=== PATIENT | male | born 1985 | race Caucasian/White ===

== ENCOUNTER 2020-08-17 15:10 | Outpatient (REF) | payer OTHER, SELFPAY | END 2020-08-17 15:11 | disposition home or self-care (01) | LOC: HO.LAB 15:10 | PROVIDERS: Visit Provider Internal Medicine | DX: Z20.828 Contact with and (suspected) exposure to other viral communicable diseases (principal) | CPT/HCPCS: 87635 ==

== ENCOUNTER 2020-09-14 12:55 | Outpatient (REF) | payer OTHER, SELFPAY | END 2020-09-14 12:56 | disposition home or self-care (01) | LOC: HO.LAB 12:55 | PROVIDERS: Visit Provider Internal Medicine | DX: Z20.828 Contact with and (suspected) exposure to other viral communicable diseases (principal) | CPT/HCPCS: C9803; U0003 ==

== ENCOUNTER 2020-11-15 10:01 | Outpatient (REF) | payer OTHER, SELFPAY | END 2020-11-15 10:02 | disposition home or self-care (01) | LOC: HO.LAB 10:01 | PROVIDERS: Visit Provider Internal Medicine | DX: Z20.822 Contact with and (suspected) exposure to COVID-19 (principal) | CPT/HCPCS: 36415; C9803; U0003 ==

== ENCOUNTER 2020-12-27 15:26 | Outpatient (REF) | payer OTHER, SELFPAY | END 2020-12-27 15:27 | disposition home or self-care (01) | LOC: HO.LAB 15:26 | PROVIDERS: Visit Provider Internal Medicine | DX: Z20.822 Contact with and (suspected) exposure to COVID-19 (principal) | CPT/HCPCS: 36415; C9803; U0003; U0005 ==

== ENCOUNTER 2021-02-15 10:01 | Outpatient (REF) | payer OTHER, SELFPAY ==
[2021-02-15 10:58] LABS: COVID-19 Test Negative (Negative)
== END 2021-02-15 10:02 | disposition home or self-care (01) ==
LOC: HO.LAB 10:01
PROVIDERS: Visit Provider Internal Medicine
DX: Z20.822 Contact with and (suspected) exposure to COVID-19 (principal)
CPT/HCPCS: 36415; 87635; C9803

== ENCOUNTER 2021-02-16 11:36 | Outpatient (REF) | payer OTHER, SELFPAY ==
[2021-02-16 12:49] LABS: COVID-19 Test Negative (Negative); IDNOW Serial# 55D5AD1C
== END 2021-02-16 11:37 | disposition home or self-care (01) ==
LOC: HO.LAB 11:36
PROVIDERS: Visit Provider Internal Medicine
DX: Z20.822 Contact with and (suspected) exposure to COVID-19 (principal)
CPT/HCPCS: 36415; 87635; C9803

== ENCOUNTER 2021-02-18 09:24 | Outpatient (REF) | payer OTHER, SELFPAY ==
[2021-02-18 09:46] LABS: COVID-19 Test Negative (Negative)
== END 2021-02-18 09:25 | disposition home or self-care (01) ==
LOC: HO.LAB 09:24
PROVIDERS: Visit Provider Internal Medicine
DX: Z20.822 Contact with and (suspected) exposure to COVID-19 (principal)
CPT/HCPCS: 36415; 87635; C9803

== ENCOUNTER 2024-07-29 09:18 | Outpatient (AMB) | payer OTHER, SELFPAY ==
--- NOTE | 2024-07-29 10:51 | A.OFFVISCC_ITS ---
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 Sales Required: No Allergies No Known Allergies Allergy (Verified 07/30/24 09:46) Referred by: friend HPI HPI Intake: Details: Patient presents as walk in for evaluation and treatment of alcohol use He was referred by a friend Full substance use and treatment history obtained by RN and reviewed with patient He reports his goal is to get better control of his alcohol intake and be able to drink socially He has cut down a considerable amount over the last few weeks and is down to two drinks (previously 8 drinks) No history of treatment Patient is quite ill appearing--jaundice and distended abdomen which he reports began about a month ago He called his primary care provider and reported these things and was told to present to the ED. He came here instead to discuss his options. T/w acknowledged patient's significant reduction in alcohol intake and also voiced concern related to acute medical issues. Discussed patient's hesitation with being seen and he voiced anxiety about what to expect. Provided reassurance that he would be kep comfortable in regards to alcohol withdrawal and overall anxiety Advised patient that t/s would be able to see him when medically admitted and continue conversation regarding treatment for AUD while in the hospital. He stated he would like to go home and come back tomorrow. He declined lab work and stated he would prefer to have it tomorrow. PFSH Social History Alcohol intake: current Alcohol intake frequency: 3 or more drinks per day Alcohol type: beer and hard liquor Smoked in Last 30 Days: No Use of substances other than those prescribed or required for medical reasons: No Advance Directives: No Advance Directives Information Provided: Yes Do you have a plan to hurt others: No Plan Review of Systems Const Reports difficulty sleeping, Reports malaise and Reports poor appetite Physical Exam Vital Signs: Last Vital Signs Pulse 109 H 07/29/24 11:00 Resp 18 07/29/24 11:00 BP 138/68 07/29/24 11:00 Pulse Ox 94 07/29/24 11:00 Oxygen Delivery Method Room Air 07/29/24 11:00 Const Other: skin and sclera jaundice abdomen visibly distented guarded related to physcial exam General: cooperative, anxious, ill appearing and poor hygiene Nutritional Appearance: thin Assessment & Plan Assessment & Plan (1) Alcohol use disorder, severe, dependence: Code(s): F10.20 - Alcohol dependence, uncomplicated Category: Medical Plan: * patient to return to ED tomorrow * encouraged to come in sooner if he changes his mind * will follow up in AM if he has not presented MAT Intake Nursing Intake Reason for visit: Pt presents for ANTIONE intake Are you currently using?: Yes What are you taking?: alcohol When was your last use?: yesterday (07/28/24) How much?: 2 drinks (Navdeep and Coke with approx 2 shots each) What is your source of 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 Had been drinking 6-9 mixed drinks (2 shots each drink) but has reduced to 2 drinks daily) Age of first use: alcohol-22, cocaine-approx 29 Social History Domestic Violence concerns: none Children: none Do you have a support system?: Dad, friends, motorcycle club Current mode of transportation?: owns and drives own vehicle Where are you currently residing?: house in [place] with Dad IV Drug Use Have you ever shared needles?: No (no history of IV substance use) Number of lifetime overdoses: 0 Recovery History Have you had any periods of recovery?: Yes What is your longest time in recovery?: 1-2 weeks When was the last time you were in recovery?: a couple years ago Have you ever had inpatient treatment for your substance abuse disorder?: No Have you been in an inpatient detoxification program?: No Have you been in an inpatient Rehab/[place] house?: No Have you been in an outpatient Methadone Maintenance program?: No Have you been in an outpatient Suboxone Maintenance program?: No Have you been in an AA/NA support program?: No Have you had a Recovery Support Aerospace Physiological Technician?: No Have you had Peer Support?: No Behavioral Health History Do you have a current provider? If so, who?: no BH diagnosis: none History of other addictive behavior: denies History of inpatient psychiatric hospitalization? If so, how many? Most Recent? Where?: none History of self harming thoughts?: No History of homicidal or suicidal intentions?: No Medical Conditions Endocarditis?: No Skin Infection: No Seizure related to withdrawal or overdose: No Head or brain injury: No Hepatitis A (if yes, have you been treated?): No Hepatitis B (if yes, have you been treated?): No Hepatitis C (if yes, have you been treated?): No HIV (if yes, have you been treated?): No TB (if yes, have you been treated?): No Other: Yes (HTN (on amlodipine), Guillan-Trevorton syndrome 2 years ago, acid reflux, hx gout) Do you have any chronic pain conditions?: no Details: Left ankle surgery December 2022 after breaking it in 3 places Currently jaundice, reports first noticing approx 1 month ago. Also reports abdominal distention. Legal History History of incarceration: No Currently on parole or probation: No Court mandated programs: No Pending court cases: No DCF involvement: No
[2024-07-29 11:00] VITALS: BP 138/68; PULSE 109; RESP 18; O2SAT 94
== END 2024-07-29 10:38 | disposition home or self-care (01) ==
PROVIDERS: Visit Provider Nurse Practitioner Psychiatric/Mental Health
DX: F10.20 Alcohol dependence, uncomplicated (principal)
CPT/HCPCS: 99204

== ENCOUNTER → 2024-07-29 09:18 | Outpatient (BNVA) | payer OTHER, SELFPAY | PROVIDERS: Visit Provider Nurse Practitioner Psychiatric/Mental Health ==

== ENCOUNTER 2024-07-30 09:40 | Inpatient (IN) | payer OTHER, SELFPAY ==
[2024-07-30] VITALS (29 sets, daily range): BP systolic 90–120; BP diastolic 41–61; PULSE 74–108; RESP 16–25; TEMP 36.4–37.1; O2SAT 90–97; BMI 29.5
--- NOTE | ~2024-07-30 | XR_ITS ---
EXAMINATION: XR CHEST CLINICAL INFORMATION: Hypoxia. COMPARISON: Most recent chest radiograph done earlier the same day. TECHNIQUE: Frontal view of the chest was obtained. FINDINGS: Endotracheal tube with its tip approximately 3.1 cm proximal to the larry. Small left-sided pleural effusion with bilateral airspace opacities, similar when compared to the prior examination. No new right-sided pleural effusion. No pneumothorax. Stable cardiomediastinal silhouette. XR/XR chest 1V IMPRESSION: 1. Endotracheal tube with its tip approximately 3.1 cm proximal to the larry. 2. Small left-sided pleural effusion with bilateral airspace opacities, similar when compared to the prior examination. Electronically signed by: Teodoro Clements MD 07/31/2024 09:27 PM EDT
--- NOTE | ~2024-07-30 | XR_ITS ---
EXAMINATION: XR CHEST CLINICAL INFORMATION: Ventilator patient COMPARISON: 08/03/2024 TECHNIQUE: Frontal view of the chest was obtained. FINDINGS: The endotracheal tube terminates 5.3 cm above the larry. Nasogastric tube courses into the stomach. Diffuse airspace opacities, improved on the left, although slightly worsened on the right. The appearance suggests alveolar edema. Cannot exclude superimposed pneumonia. Probable trace pleural effusions. XR/XR chest 1V IMPRESSION: 1. Endotracheal tube 5.3 cm above the larry. 2. Diffuse airspace opacities, improved on the left and slightly worsened on the right. The appearance suggests alveolar edema. Electronically signed by: Cameron Lewis MD 08/05/2024 10:59 AM EDT
--- NOTE | ~2024-07-30 | XR_ITS ---
EXAMINATION: XR CHEST CLINICAL INFORMATION: ETT placement COMPARISON: Multiple priors, most recent chest radiograph 08/06/2024 TECHNIQUE: AP view of the chest was obtained. FINDINGS: Endotracheal tube with tip approximately 5 cm above the larry. Enteric tube courses below the diaphragm and out of [id number]. Left IJ central venous catheter with tip overlying the cavoatrial junction, as before. Moderate left-sided pleural effusion, increased from prior. Bilateral patchy opacities again seen. No pneumothorax. The cardiomediastinal silhouette is within normal limits for technique and unchanged. No acute osseous abnormality. XR/XR chest 1V IMPRESSION: 1. Endotracheal tube with tip approximately 5 cm above the larry. 2. Moderate left-sided pleural effusion, increased from prior. 3. Bilateral patchy opacities again seen, which may represent multifocal pneumonia versus pulmonary edema. Electronically signed by: Brittany Gusman DO 08/08/2024 01:42 PM EDT
--- NOTE | ~2024-07-30 | US_ITS ---
EXAMINATION: US GUIDED PARACENTESIS CLINICAL INFORMATION: Small volume ascites for diagnostic paracentesis. Patient admitted to ICU with GI bleed, hepatitis, severe anemia, leukocytosis, pneumonia, and anasarca. COMPARISON: No prior. Correlation with CT abdomen and pelvis 07/30/2024. PROCEDURE DETAILS: Following the discussion of the risks, benefits and alternatives to the procedure, written informed consent was obtained from the patient. The patient was placed supine in the ICU bed with a mild left tilt. A preprocedure time-out was performed per [facility] protocol. The left lower quadrant was marked, using ultrasound guidance, prepped and draped using sterile fashion. Using an ultrasound to identify the largest pocket of fluid, the left lower quadrant which was localized for paracentesis. Skin and subcutaneous tissues were anesthetized with 7 mL of 1% lidocaine sterile solution. Subsequently, a 5-[place] trochar catheter (WizeHive) was advanced into the ascites and upon aspiration of fluid, trocar was removed, and catheter left in place. The catheter was connected to Vacutainer suction. 1100 mL of rome, serous clear fluid was drained via vacuum bottle. The patient tolerated the procedure well without complications. The catheter was removed, area cleansed, puncture site sealed with Dermabond, and a sterile dressing applied. Ascitic samples were sent to laboratory for analysis. Patient tolerated the procedure well with no immediate complication. FINDINGS: Small volume abdominopelvic ascites. US/US paracentesis abd w/image IMPRESSION: LLQ therapeutic and diagnostic paracentesis, yielding 1100 mL of rome-colored, non-sanguinous clear serous ascites. Electronically signed by: Michele Mujica MD 07/31/2024 11:12 AM EDT
--- NOTE | ~2024-07-30 | XR_ITS ---
EXAMINATION: XR CHEST CLINICAL INFORMATION: Worsening hypoxia COMPARISON: 08/05/2024 TECHNIQUE: AP portable view of the chest. FINDINGS: Endotracheal tube are terminates 5.8 cm above the larry. There is no gross pneumothorax. Esophagogastric tube terminates below the lower limits of the film, but at least into the left upper quadrant. Diffuse bilateral airspace opacities with some improvement on the right and possible worsening on the left, although comparison is limited due to differences in positioning. Small left pleural effusion with left basilar consolidation. XR/XR chest 1V IMPRESSION: Diffuse bilateral airspace opacities with some improvement on the right and possible worsening on the left, although comparison is limited due to differences in positioning. Small left pleural effusion with left basilar consolidation. Electronically signed by: Aida Stoll MD 08/06/2024 08:51 AM EDT
--- NOTE | ~2024-07-30 | XR_ITS ---
EXAMINATION: XR CHEST CLINICAL INFORMATION: NG tube placement COMPARISON: None available. TECHNIQUE: Frontal view of the chest was obtained. 3 AP images were obtained at 1320 hours, 1323 hours, and 1327 hours. FINDINGS: Initial 2 radiographs demonstrates the NG tube coursing into the right mainstem bronchus and right lower lobe bronchus. The final image shows removal of the nasogastric tube. No pneumothorax. Endotracheal tube terminates 4.1 cm above the larry. Persistent pleural effusions and dense retrocardiac opacity. Patchy airspace opacities throughout the lungs is similar. XR/XR chest 1V IMPRESSION: Initial and post repositioning radiographs 2 the nasogastric tube in the right lower lobe bronchus. A subsequent image following removal of the nasogastric tube demonstrates no pneumothorax. Persistent pleural effusions, left lower lobe opacity, and patchy airspace disease, similar to previous. Electronically signed by: Cameron Lewis MD 08/02/2024 03:05 PM EDT
--- NOTE | ~2024-07-30 | XR_ITS ---
EXAMINATION: XR CHEST CLINICAL INFORMATION: ETT placement COMPARISON: Chest radiograph 07/30/2024 TECHNIQUE: AP view of the chest was obtained. FINDINGS: Endotracheal tube with tip approximately 4 cm above the larry. Lungs are hypoexpanded. Patchy bilateral airspace opacities, increased from prior. Small left pleural effusion. No pneumothorax. The top normal cardiomediastinal silhouette is unchanged. No acute osseous abnormality. XR/XR chest 1V IMPRESSION: 1. Endotracheal tube with tip approximately 4 cm above the larry. 2. Small left pleural effusion, stable. 3. Patchy bilateral airspace opacities, increased from prior, concerning for multifocal pneumonia versus edema in the appropriate clinical setting. Electronically signed by: Brittany Gusman DO 07/31/2024 02:08 PM EDT
--- NOTE | ~2024-07-30 | XR_ITS ---
EXAMINATION: XR CHEST CLINICAL INFORMATION: Shortness of breath COMPARISON: None available. TECHNIQUE: Frontal view of the chest was obtained. FINDINGS: Limited left hemidiaphragm. Left basilar infiltrate and effusion not excluded. Interstitial infiltrate observed in the right mid to lower lung. Heart size borderline with slight distention of the pulmonary vessels. Cardiac monitoring leads are present. XR/XR chest 1V IMPRESSION: Left pleural effusion. Mild infiltrates versus edema at the lung bases. Other comments as above. Electronically signed by: Juan Ramon Masters MD 07/30/2024 11:48 AM EDT
--- NOTE | ~2024-07-30 | XR_ITS ---
EXAMINATION: XR CHEST CLINICAL INFORMATION: CVC placement COMPARISON: Chest radiograph 08/06/2024 TECHNIQUE: Frontal view of the chest was obtained. FINDINGS: Left internal jugular catheter terminates at the level of the cavoatrial junction. An endotracheal tube terminates 5 cm superior to the larry. An enteric tube courses in projection of the stomach beyond the inferior margin of the field of view. Multifocal airspace opacities are present similar to findings present 08/06/2024 5:33 AM. Mild blunting of the left costophrenic sulcus and dense airspace opacification is present in the left lung base. No pneumothoraces. XR/XR chest 1V IMPRESSION: 1. Left internal jugular catheter terminating at the cavoatrial junction. 2. Endotracheal tube terminating 5 cm superior to the larry. 3. Enteric tube coursing within the stomach. 4. Unchanged multifocal airspace disease, small left pleural effusion and dense left base atelectasis and/or consolidation Electronically signed by: Aniceto Cooper MD 08/07/2024 07:08 AM EDT
--- NOTE | ~2024-07-30 | MR_ITS ---
EXAMINATION: MR BRAIN WITHOUT AND WITH CONTRAST CLINICAL INFORMATION: Persistent encephalopathy. COMPARISON: None available. TECHNIQUE: MRI of the brain was obtained using routine sequences without and following the administration of Gadavist intravenous contrast. FINDINGS: Moderately motion degraded exam. Punctate focus of restricted diffusion within the periventricular white matter of the posterior left temporal lobe. Associated T2 FLAIR hyperintensity. No focal restricted diffusion is demonstrated to suggest acute or subacute cerebral ischemia. Trace layering blood products within the occipital horns of the lateral ventricles. Partial failure of the normal CSF T2 FLAIR signal suppression along the bilateral cerebral hemispheres. Multifocal small foci/linear susceptibility artifact scattered throughout the subarachnoid spaces of the bilateral cerebral hemispheres and to lesser extent posterior fossa. Few nonspecific scattered periventricular, deep white matter, deep nuclei, and cerebellar T2 FLAIR hyperintensities. The ventricles are normal in morphology and size. Prominence of the CSF space posterior to the cerebellum. No abnormal mass effect. No midline shift. Normal appearance of the pituitary gland. Normal positioning of the cerebellar tonsils. Normal arterial and venous vascular flow voids are present. No abnormal contrast enhancement. The patient is intubated with orogastric tube in place. Normal, homogeneous marrow signal. Mild mucosal thickening of the paranasal sinuses. Prominent bilateral mastoid effusions. MR/MR head/brain wo/w con IMPRESSION: Punctate focus of restricted diffusion within the periventricular white matter of the posterior left temporal lobe suggestive of a tiny acute white matter insult. Trace intraventricular blood products. Multifocal small foci of susceptibility artifact scattered throughout the subarachnoid spaces. This appearance may be partially explained by scattered subarachnoid blood products although the scattered small foci/linear morphology is somewhat atypical. Recommend correlation with potential hypercoagulable state and/or causes of central embolic disease as these changes may be indicative of multifocal small arterial or venous occlusive disease. Mild nonspecific white matter changes. No abnormal intracranial enhancement. Prominent bilateral mastoid effusions. Electronically signed by: Balta Steele DO 08/11/2024 06:05 PM EDT
--- NOTE | ~2024-07-30 | CT_ITS ---
EXAMINATION: CT CHEST, ABDOMEN AND PELVIS WITH CONTRAST CLINICAL INFORMATION: Anemia, leukocytosis, anasarca. COMPARISON: None. TECHNIQUE: Contiguous axial thin section helical images of the chest, abdomen and pelvis were performed following the administration of 85 mL of intravenous Omnipaque 350. The data set was reformatted in the coronal and sagittal planes and reviewed on an independent workstation. This CT examination was performed using dose optimization techniques as appropriate, variously including the following: *Automated exposure control *Adjustment of mA and/or kV according to patient size (this includes techniques or standardized protocols for targeted exams where dose is matched to indication/reason for exam; i.e. extremities or head) *Use of iterative reconstruction technique Dose Length Product: 1072 mGycm. FINDINGS: LUNGS: Ill-defined patchy airspace opacities in the right upper lobe most likely inflammatory. There is partial collapse and consolidation of the left lower lobe with a small left pleural effusion and elevation of the left hemidiaphragm. MEDIASTINUM: Fluid-filled esophagus. No adenopathy. No pericardial effusion. No coronary artery calcifications. PLEURA: Small left pleural effusion. Trace right pleural effusion. AXILLA: No lymphadenopathy. LIVER, GALLBLADDER, BILIARY TREE: The liver is diffusely heterogeneous, measuring 23 cm in length. No discrete lesion. No ductal dilatation. PANCREAS: Normal SPLEEN: Normal. There are prominent vessels at the medial aspect of the spleen, at the junction with the gastric fundus. There is a focus of increased density within the adjacent posterior stomach which may have been ingested, although could represent a dilated vessel/vascular malformation or possible arterial extravasation. ADRENAL GLANDS, KIDNEYS, URETERS, AND BLADDER: No hydronephrosis. Nephrograms are symmetric. No suspicious lesions BOWEL LOOPS: No obstruction. No focal wall thickening or inflammatory process LYMPH NODES/RETROPERITONEUM: No retroperitoneal, mesenteric, or pelvic adenopathy. Moderate ascites and free pelvic fluid. Small fat-containing right inguinal hernia. OSSEOUS STRUCTURES: No suspicious lesions ADDITIONAL FINDINGS: Anasarca. Periumbilical subcutaneous edema. CT/CT abdomen pelvis w IV con IMPRESSION: 1. Small left pleural effusion with partial collapse and consolidation of the left lower lobe. 2. Patchy airspace opacities in the right upper lobe are likely inflammatory. 3. Enlarged heterogeneously enhancing liver which may represent early cirrhosis or hepatitis. No discrete lesion. Prominent vessels at the junction of the spleen and gastric fundus may be due to portal hypertension. There is a rounded focus of increased density within the adjacent posterior stomach which may have been ingested, although could represent a dilated vessel/vascular malformation or possible arterial extravasation. 4. Moderate ascites. Anasarca. 5. Fluid-filled esophagus. Electronically signed by: Cameron Lewis MD 07/30/2024 01:54 PM EDT
--- NOTE | ~2024-07-30 | XR_ITS ---
EXAMINATION: XR CHEST CLINICAL INFORMATION: bronchoscopy COMPARISON: Multiple priors, most recent chest radiograph 08/08/2024 at 8:06 AM TECHNIQUE: AP view of the chest was obtained. FINDINGS: Endotracheal tube with tip approximately 5.5 cm above the larry. Enteric tube courses below diaphragm and out of [id number]. Left IJ central venous catheter tip overlying the cavoatrial junction, as before. The lungs are adequately expanded. Small left pleural effusion. Dense retrocardiac opacities with air bronchograms. Bilateral patchy opacities. No pneumothorax. The cardiomediastinal silhouette is within normal limits for technique and unchanged. No acute osseous abnormality. XR/XR chest 1V IMPRESSION: 1. Endotracheal tube with tip approximately 5.5 cm above the larry. 2. Study is improved from prior status post bronchoscopy. Dense retrocardiac opacities with air bronchograms favored to represent atelectasis, though consolidation is not excluded. 3. Bilateral patchy opacities and small left pleural effusion could represent edema versus multifocal pneumonia. Electronically signed by: Brittany Gusman DO 08/08/2024 01:45 PM EDT
--- NOTE | ~2024-07-30 | XR_ITS ---
EXAMINATION: XR CHEST CLINICAL INFORMATION: Status post OGT placement COMPARISON: Chest radiograph dated 08/02/2024 TECHNIQUE: Frontal view of the chest was obtained. FINDINGS: Endotracheal tube remains in place with tip projecting approximately 4.8 cm above the larry. Interval repositioning of the endogastric tube, previously with tip located in a right lower lobe bronchus, now with tip obscured by a radiopaque lead but otherwise located in the stomach. Interval worsening of diffuse confluent patchy airspace opacities. Increase in moderate left pleural effusion. Stable small right pleural effusion. No pneumothorax. The cardiac silhouette is partially obscured by the left pleural effusion, but otherwise appears unchanged. XR/XR chest 1V IMPRESSION: 1. Interval repositioning of the endogastric tube, previously with tip located in a right lower lobe bronchus, now in satisfactory position within the stomach. 2. Interval worsening of diffuse confluent patchy airspace opacities. 3. Increase in moderate left pleural effusion. Stable small right pleural effusion. Electronically signed by: Darcy Khan MD 08/03/2024 01:49 PM EDT
[2024-07-30 10:13] LABS: Basophils Absolute Auto 0.1 X10*3/uL (0.0-0.2); Basophils Percent Auto 0.5 % (0-2); Eosinophils Absolute Auto 0.5 X10*3/uL (0.0-0.4); Imm Gran Abs Auto 0.32 X10*3/uL (0.00-0.03); Imm Gran Pct Auto 1.4 % (0.0-0.4); Lymphocytes Absolute Auto 4.8 X10*3/uL (1.2-4.9); Lymphocytes Percent Auto 20.8 % (20-40); MANUAL DIFF FLAG SCAN; Mean Corpuscular HGB Conc 34.4 g/dl (31.0-36.0); Mean Corpuscular Hemoglobin 33.5 pg (27.0-33.0); Mean Corpuscular Volume 97.6 fL (80.0-98.0); Mean Platelet Volume 11.2 fL (9.4-12.4); Monocytes Absolute Auto 2.5 X10*3/uL (0.1-1.2); Monocytes Percent Auto 10.9 % (2-11); NRBC Pct Auto 0.4 /100WBC (0.0-0.2); Neutrophils Absolute Auto 14.8 x10*3/uL (2.0-8.3); Neutrophils Percent Auto 64.4 % (45-73); Platelet Count 198 X10*3/uL (160-400); Red Blood Count 1.67 X10*6/uL (4.60-5.80); Red Cell Distribution Width 16.8 % (11.0-16.0); SCAN SMEAR FLAG 1
[2024-07-30 10:17] LABS: Hematocrit 16.3 % (42.0-52.0); Hemoglobin 5.6 g/dl (14.0-18.0)
[2024-07-30 10:26] LABS: Alanine Aminotransferase 19 U/L (0-40); Albumin Level 1.8 g/dL (3.5-5.0); Alkaline Phosphatase 268 U/L (39-117); Anion Gap 15 (12-20); Aspartate Amino Transferase 101 U/L (5-37); Bilirubin Direct 8.4 mg/dL (0.0-0.5); Bilirubin Total 11.1 mg/dL (0.0-1.0); Blood Urea Nitrogen 25 mg/dL (9-16); Calcium 7.9 mg/dL (8.4-10.2); Carbon Dioxide 20 mmol/L (22-29); Chloride 100 mmol/L (96-108); Creatinine Clr Calc Pharmacy 144.2; Estimated Glomerular Filt Rate > 60; Ethanol 35 mg/dL; Glucose Random 149 mg/dL (60-115); Lipase 56 U/L (8-78); Potassium 3.7 mmol/L (3.3-5.1); Sodium 131 mmol/L (135-145)
--- NOTE | 2024-07-30 10:29 | ECG_ITS ---
Test Reason : WEAKNESS Blood Pressure : / mmHG Vent. Rate : 103 BPM Atrial Rate : 103 BPM P-R Int : 144 ms QRS Dur : 118 ms QT Int : 376 ms P-R-T Axes : 041 013 033 degrees QTc Int : 492 ms Sinus tachycardia with Premature supraventricular complexes Non-specific intra-ventricular conduction delay Abnormal ECG No previous ECGs available Referred By: Harika Brown Electronically Signed By:NINA PRADHAN
--- NOTE | 2024-07-30 10:34 | ED_ITS ---
HPI - General Adult General Chief complaint: Abdominal Pain Stated complaint: bloating-yellow eyes Time Seen by Provider: 07/30/24 10:03 Source: patient Mode of arrival: ambulatory Limitations: no limitations History of Present Illness ED Provider: Huang Brown PA-C HPI narrative: 39 yo M with a past medical history significant for hypertension, GERD, anxiety, alcohol and substance use, Guillain[place] resolved from 2 years ago presents to the ED c/o jaundice and bloating for 2 months. Patient reports that the yellowing of his skin and eyes as well as abdominal bloating has become significantly worsened over the past 2 months which resulted in him presenting to the ED today. He has also noticed the formation of ?red dots on his chest and abdomen x1 month. Patient reports he recently has been trying to cut back on his alcohol use over the past 2-3 weeks previously he was drinking 6-8 drinks per day in his reporting that he currently drinks 2 drinks per day of ze and Coke. Patient unable to report amount of alcohol in each drink. Patient reports his last drink was yesterday night. Patient admits feeling anxious currently as his anxiety increases in the presence of medical settings. Denies history of withdrawal, withdrawal seizures. Endorses mild SOB, decreased appetite, tremors, nausea and 2 episodes of melena over the past week. Last BM 1 hour ago, formed and dark brown. Denies hematemesis, coffee ground emesis, fever, chills, headache, vision changes, tinnitus, CP, palpitations, vomiting, diarrhea, constipation, urinary symptoms, seizures. MD complaint: abdominal bloating, jaundice Onset (ago): month(s) Location: abdomen Radiation: distal Severity: severe Quality: aching Pain Consistency: intermittent Relieving factors: none Exacerbating factors: none Associated symptoms: loss of appetite Treatments prior to arrival: none Related Data Allergies Allergy/AdvReac Type Severity Reaction Status Date / Time No Known Allergies Allergy Verified 07/30/24 09:46 Review of Systems 2 Review of Systems: Yes all other systems are reviewed and are negative [facility] [place] Social History Social History Alcohol intake: current Alcohol intake frequency: 3 or more drinks per day Alcohol type: beer and hard liquor Patient Tobacco Use Status: Never used Tobacco Smoked in Last 30 Days: No Use of substances other than those prescribed or required for medical reasons: No Advance Directives: No Advance Directives Information Provided: Yes Do you have a plan to hurt others: No Plan Nutrition Risks: No Nutritional Risk Physical Exam ED Vital Signs: Vital Signs - 24 hr 07/30/24 09:46 07/30/24 10:09 07/30/24 12:26 Temperature 97.7 F 97.9 F 98.1 F Pulse Rate 74 104 H 106 H Respiratory Rate 16 22 H 20 Blood Pressure 114/49 L 120/54 L Pulse Oximetry 97 96 93 Oxygen Delivery Method Room Air Room Air Nasal Cannula Oxygen Flow Rate 2 07/30/24 12:27 07/30/24 12:47 07/30/24 13:46 Temperature 98.1 F 97.6 F 98.2 F Pulse Rate 108 H 106 H 107 H Respiratory Rate 22 H 25 H 21 H Blood Pressure 114/57 L 114/54 L 91/52 L Pulse Oximetry 92 Oxygen Delivery Method Nasal Cannula Oxygen Flow Rate 2 07/30/24 13:54 07/30/24 14:43 07/30/24 14:55 Temperature 98.0 F 98.7 F Pulse Rate 106 H 107 H Respiratory Rate 19 19 Blood Pressure 98/59 L 108/54 L 117/52 L Pulse Oximetry 92 Oxygen Delivery Method Nasal Cannula Oxygen Flow Rate 2 07/30/24 15:14 Temperature 98.7 F Pulse Rate 105 H Respiratory Rate 19 Blood Pressure 103/50 L Pulse Oximetry Oxygen Delivery Method Oxygen Flow Rate BMI result Body Mass Index 29.5 Appearance: Alert. Oriented X3. Patient appears jaundiced with tremors, lying on stretcher appears uncomfortable. Cooperative. Head: normocephalic, atraumatic. Eyes: Pupils equal, round and reactive to light. ENT: Fasciculations noted to tongue. Pharynx normal. No tonsillar swelling or exudate. Neck: Normal inspection. Neck supple. CVS: Mildly tachycardic heart rate and normal rhythm. Pulses normal. Respiratory: No respiratory distress. Breath sounds normal. Abdomen: Nontender but firm and distended. Hepatomegaly. No splenomegaly noted on palpation. Anasarca with pitting edema to the middle abdomen. JEREMI: normal external inspection, no hemorrhoids, scant amount of dark red blood in the rectal vault Skin: Skin warm and dry. Jaundiced skin color. Normal skin turgor. Petechial rash noted to anterior chest and upper abdomen. Extremities: Severe lower extremity 4+ pitting edema to the entire leg. No joint swelling. Neuro/psych: Oriented X 3. Neurovascularly intact. CN II-XII grossly intact. Normal speech and cognition. Resting tremor of the bilateral upper extremities. No asterixis. Medications Administered Generic Name Dose Route Start Last Admin Trade Name Freq PRN Reason Stop Dose Admin Octreotide Acetate 500 mcg/ 501 mls @ 50.1 mls/hr 07/30/24 13:00 07/30/24 13:44 Sodium Chloride IVCONT 50 mcg/hr .Q10H LUKAS 50.1 mls/hr Administration 50 MCG/HR Albumin Human 100 mls @ 133.333 mls/hr 07/30/24 15:15 07/30/24 15:42 Kedbumin 25 % IV 07/30/24 16:59 133.33 mls/hr Q1H LUKAS Administration Phenobarbital Sodium 226 mg 07/30/24 14:00 07/30/24 15:36 Phenobarbital Sodium 130 Mg/Ml Vial Im Q3hx2 IM 07/30/24 17:01 226 mg Q3H LUKAS Administration Protocol Discontinued Medications Generic Name Dose Route Start Last Admin Trade Name Earlq PRN Reason Stop Dose Admin Furosemide 20 mg 07/30/24 15:05 07/30/24 15:38 Furosemide 20 Mg/2 Ml Vial IVPUSH 07/30/24 15:06 20 mg ONCE ONE Administration Protocol Sodium Chloride 100 mls @ 100 mls/hr 07/30/24 10:28 07/30/24 14:43 Ns IV 07/30/24 11:27 Infused ONCE ONE Infusion Ceftriaxone Sodium 1 gm/ 50 mls @ 100 mls/hr 07/30/24 10:41 07/30/24 13:45 Sodium Chloride IV 07/30/24 11:10 Infused ONCE ONE Infusion Albumin Human 100 mls @ 100 mls/hr 07/30/24 14:00 07/30/24 15:14 Kedbumin 25 % IV 07/30/24 15:59 Not Given Q1H LUKAS Azithromycin 500 mg/ Sodium 250 mls @ 125 mls/hr 07/30/24 14:01 07/30/24 14:51 Chloride IV 07/30/24 16:00 125 mls/hr ONCE ONE Administration Iohexol 100 ml 07/30/24 12:04 07/30/24 12:04 Iohexol 350 Mg/Ml 100 Ml Infus..Btl IV 07/30/24 12:05 85 ml ONCE ONE Administration Lorazepam 2 mg 07/30/24 10:26 07/30/24 10:47 Lorazepam 2 Mg/Ml Vial IVPUSH 07/30/24 10:27 2 mg ONCE ONE Administration Pantoprazole Sodium 40 mg 07/30/24 10:27 07/30/24 10:47 Pantoprazole Sodium 40 Mg/10 Ml Vial IVPUSH 07/30/24 10:28 40 mg ONCE ONE Administration Phenobarbital Sodium 300 mg 07/30/24 11:00 07/30/24 11:07 Phenobarbital Sodium 130 Mg/Ml Im Once IM 07/30/24 11:01 300 mg ONCE ONE Administration Protocol Phytonadione 10 mg 07/30/24 10:53 07/30/24 11:06 Phytonadione (Vit K1) Oral 10 Mg/Ml Ampul PO 07/30/24 10:54 10 mg ONCE ONE Administration Medical Decision Making Medical Decision Making [facility] Narrative: 39 yo M with a past medical history significant for hypertension, GERD, anxiety, alcohol and substance use, Guillain[place] resolved from 2 years ago presents to the ED c/o jaundice and bloating for 2 months. On arrival, patient appears jaundiced with resting tremors to the bilateral upper extremities, lying on stretcher appears uncomfortable. On exam, patient is jaundiced skin color with visual tremors, mildly tachycardic at 104 bpm and tachypneic at 22 breaths per minute. Fasciculations are noted to his tongue. Pupils are equal and reactive to light, scleral icterus noted bilaterally. Abdomen is firm, distended, nontender, anasarca with pitting edema and hepatomegaly. Spider angiomas noted to upper anterior chest and upper abdomen. Severe lower extremity 4+ pitting edema to the entire leg to the dependent abdominal wall. No asterixis. Concern for alcoholic hepatitis, cirrhosis, DIC, GI bleed, chronic liver disease, ETOH withdrawal, sepsis, retroperitoneal bleed, hemolytic anemia, unlikely hepatic encephalopathy as he is awake, alert, oriented, and not lethargic. 10:40 - Plan: Labs, CT, x-ray, blood transfusion, empiric antibiotics (rocephin) ordered for now Labs concerning with severe anemia, H/H 5.6/6.3 and leukocytosis 23K. platelets normal. renal function normal. mild hyponatremia likely related to volume overload/anasarca. albumin 1.8. No obvious source of infection at this time. LFTs elevated likely due to alcoholic hepatitis. he has no RUQ abd pain, N/V or fevers. Empiric rocephin ordered x1. Consented for blood. 2 units PRBC ordered. JEREMI with dark red heme positive stool. IV Protonix ordered along with octreotide gtt for concern of UGIB, however less likely esophageal varices given no hematemsis. CT scans of his C/A/P ordered - CXR reviewed and he has left pleural effusion so CT chest added CIWA 7 - IV ativan ordered for severe anxiety and started on phenobarbital protocol for withdrawal. holding off on IVF resuscitation given his physical exam findings. may consider albumin if needed. getting blood for now. may need lasix between units. he is now requiring O2 for SpO2 87% while laying flat. 13:45 Discriminant function 70. unable to safely order prednisolone at this time with concern for possible infection. Dr. Turcios consulted, in the OR now, awaiting call back. still waiting for CT scan results. patient comfortable after meds. no active bleeding. No vomiting and no BMs since arrival to the ER. MAP >65, HR remains 100s. sleeping comfortably. no distress. 14:30 - spoke w/ Dr. Turcios re: CT scans. will need EGD once more stable. recommending blood and supportive care for now. monitor for s/sxs active bleeding. recommending dx paracentesis which has been ordered via IR w/ ascitic fluid studies. CT chest w/ possible PNA so azithromycin added for CAP coverage. Does not meet septic shock criteria, does not have a lactic acid over 4, not hypotensive. lawrence ordered for accurate I/Os. will plan to admit to the hospital for further management. 15:25 - patient high risk for decompensation. will admit to ICU, accepted by Dr. Montaño. Differential Diagnosis Differential Diagnoses: The differential diagnosis associated with the presentation includes Alcoholic hepatitis, cirrhosis, DIC, GI bleed, chronic liver disease, ETOH withdrawal, sepsis, retroperitoneal bleed, hemolytic anemia, SBP Admission/Observation Consideration of admission/observation: Escalation of care including admission/observation considered Consult Healthcare Provider Management of the patient was discussed with: Hospitalist and Warping Machine Operator Dr. Sabra Navarro Lab Data [facility] Lab Attestation statement: I reviewed the patient's lab results. Severe normocytic anemia, leukocytosis, normal platelets, coagulopathy with INR 2.2, hyponatremia likely hypervolemic 07/30/24 09:59 07/30/24 09:59 Labs: Lab Results 07/30/24 07/30/24 07/30/24 Range/Units 09:59 10:19 10:46 WBC 23.0 H (4.8-10.8) X10*3/uL RBC 1.67 L (4.60-5.80) X10*6/uL Hgb 5.6 L* (14.0-18.0) g/dl Hct 16.3 L* (42.0-52.0) % MCV 97.6 (80.0-98.0) fL MCH 33.5 H (27.0-33.0) pg MCHC 34.4 (31.0-36.0) g/dl RDW 16.8 H (11.0-16.0) % Plt Count 198 (160-400) X10*3/uL MPV 11.2 (9.4-12.4) fL Immature Gran % (Auto) 1.4 H (0.0-0.4) % Neut % (Auto) 64.4 (45-73) % Lymph % (Auto) 20.8 (20-40) % Hood % (Auto) 10.9 (2-11) % Eos % (Auto) 2.0 (0-4) % Baso % (Auto) 0.5 (0-2) % Lymph # (Auto) 4.8 (1.2-4.9) X10*3/uL Hood # (Auto) 2.5 H (0.1-1.2) X10*3/uL Eos # (Auto) 0.5 H (0.0-0.4) X10*3/uL Baso # (Auto) 0.1 (0.0-0.2) X10*3/uL Abs Immat Gran (auto) 0.32 H (0.00-0.03) X10*3/uL Absolute Neuts (auto) 14.8 H (2.0-8.3) x10*3/uL Absolute Nucleated RBC 0.100 H (0.0-0.012) X10*3/uL Nucleated RBC % (auto) 0.4 H (0.0-0.2) /100WBC Smear Tech's Comments VERIFIED Absolute Retic 0.123 H (0.026-0.095) X10*6/uL Percent Retic 7.4 H (0.5-1.8) % Immature Retic Fraction 28.9 H (2.3-13.4) % Retic Hgb Equivalent 25.2 L (30.0-35.0) pg PT 25.8 H (10.9-12.4) SEC INR 2.2 H (0.9-1.1) APTT 38.8 H (26.0-36.8) SEC Sodium 131 L (135-145) mmol/L Potassium 3.7 (3.3-5.1) mmol/L Chloride 100 (96-108) mmol/L Carbon Dioxide 20 L (22-29) mmol/L Anion Gap 15 (12-20) BUN 25 H (9-16) mg/dL Creatinine 0.82 (0.5-1.4) mg/dL Estim Creat Clear Calc 144.2 Estimated GFR > 60 Random Glucose 149 H (60-115) mg/dL Lactic Acid 3.9 H* (0.5-2.0) mmol/L Lactic Acid F/U @ 2Hr (0.5-2.0) mmol/L Calcium 7.9 L (8.4-10.2) mg/dL Iron 13 L (45-160) mcg/dL TIBC 173 L (228-428) mcg/dL % Saturation 8 L (15-50) % Unsat Iron Binding 160 ug/dL Total Bilirubin 11.1 H (0.0-1.0) mg/dL Direct Bilirubin 8.4 H (0.0-0.5) mg/dL AST 101 H (5-37) U/L ALT 19 (0-40) U/L Alkaline Phosphatase 268 H (39-117) U/L Lactate Dehydrogenase 230 (118-273) U/L Total Protein 6.0 L (6.5-8.0) g/dL Albumin 1.8 L (3.5-5.0) g/dL Lipase 56 (8-78) U/L Stool Occult Blood (NEGATIVE) Ethyl Alcohol 35 mg/dL Hepatitis A IgM Ab Nonreactive (Nonreactive) Hep Bs Antigen Negative (Negative) Hep Bs Antibody REACTIVE (Nonreactive) Hep B Core Total Ab Nonreactive (Nonreactive) Hepatitis C Ab (EIA) Nonreactive (Nonreactive) Influenza Type A (PCR) (Negative) Influenza Type B (PCR) (Negative) RSV RNA Qual (PCR) (Negative) SARS-CoV-2 RNA (RT-PCR) (Negative) Blood Type Antibody Screen Crossmatch 07/30/24 07/30/24 07/30/24 Range/Units 11:05 11:07 12:54 WBC (4.8-10.8) X10*3/uL RBC (4.60-5.80) X10*6/uL Hgb (14.0-18.0) g/dl Hct (42.0-52.0) % MCV (80.0-98.0) fL MCH (27.0-33.0) pg MCHC (31.0-36.0) g/dl RDW (11.0-16.0) % Plt Count (160-400) X10*3/uL MPV (9.4-12.4) fL Immature Gran % (Auto) (0.0-0.4) % Neut % (Auto) (45-73) % Lymph % (Auto) (20-40) % Hood % (Auto) (2-11) % Eos % (Auto) (0-4) % Baso % (Auto) (0-2) % Lymph # (Auto) (1.2-4.9) X10*3/uL Hood # (Auto) (0.1-1.2) X10*3/uL Eos # (Auto) (0.0-0.4) X10*3/uL Baso # (Auto) (0.0-0.2) X10*3/uL Abs Immat Gran (auto) (0.00-0.03) X10*3/uL Absolute Neuts (auto) (2.0-8.3) x10*3/uL Absolute Nucleated RBC (0.0-0.012) X10*3/uL Nucleated RBC % (auto) (0.0-0.2) /100WBC Smear Tech's Comments Absolute Retic (0.026-0.095) X10*6/uL Percent Retic (0.5-1.8) % Immature Retic Fraction (2.3-13.4) % Retic Hgb Equivalent (30.0-35.0) pg PT (10.9-12.4) SEC INR (0.9-1.1) APTT (26.0-36.8) SEC Sodium (135-145) mmol/L Potassium (3.3-5.1) mmol/L Chloride (96-108) mmol/L Carbon Dioxide (22-29) mmol/L Anion Gap (12-20) BUN (9-16) mg/dL Creatinine (0.5-1.4) mg/dL Estim Creat Clear Calc Estimated GFR Random Glucose (60-115) mg/dL Lactic Acid (0.5-2.0) mmol/L Lactic Acid F/U @ 2Hr (0.5-2.0) mmol/L Calcium (8.4-10.2) mg/dL Iron (45-160) mcg/dL TIBC (228-428) mcg/dL % Saturation (15-50) % Unsat Iron Binding ug/dL Total Bilirubin (0.0-1.0) mg/dL Direct Bilirubin (0.0-0.5) mg/dL AST (5-37) U/L ALT (0-40) U/L Alkaline Phosphatase (39-117) U/L Lactate Dehydrogenase (118-273) U/L Total Protein (6.5-8.0) g/dL Albumin (3.5-5.0) g/dL Lipase (8-78) U/L Stool Occult Blood POSITIVE (NEGATIVE) Ethyl Alcohol mg/dL Hepatitis A IgM Ab (Nonreactive) Hep Bs Antigen (Negative) Hep Bs Antibody (Nonreactive) Hep B Core Total Ab (Nonreactive) Hepatitis C Ab (EIA) (Nonreactive) Influenza Type A (PCR) NEGATIVE (Negative) Influenza Type B (PCR) NEGATIVE (Negative) RSV RNA Qual (PCR) NEGATIVE (Negative) SARS-CoV-2 RNA (RT-PCR) NEGATIVE (Negative) Blood Type A Positive Antibody Screen NEGATIVE Crossmatch See Detail 07/30/24 Range/Units 13:42 WBC (4.8-10.8) X10*3/uL RBC (4.60-5.80) X10*6/uL Hgb (14.0-18.0) g/dl Hct (42.0-52.0) % MCV (80.0-98.0) fL MCH (27.0-33.0) pg MCHC (31.0-36.0) g/dl RDW (11.0-16.0) % Plt Count (160-400) X10*3/uL MPV (9.4-12.4) fL Immature Gran % (Auto) (0.0-0.4) % Neut % (Auto) (45-73) % Lymph % (Auto) (20-40) % Hood % (Auto) (2-11) % Eos % (Auto) (0-4) % Baso % (Auto) (0-2) % Lymph # (Auto) (1.2-4.9) X10*3/uL Hood # (Auto) (0.1-1.2) X10*3/uL Eos # (Auto) (0.0-0.4) X10*3/uL Baso # (Auto) (0.0-0.2) X10*3/uL Abs Immat Gran (auto) (0.00-0.03) X10*3/uL Absolute Neuts (auto) (2.0-8.3) x10*3/uL Absolute Nucleated RBC (0.0-0.012) X10*3/uL Nucleated RBC % (auto) (0.0-0.2) /100WBC Smear Tech's Comments Absolute Retic (0.026-0.095) X10*6/uL Percent Retic (0.5-1.8) % Immature Retic Fraction (2.3-13.4) % Retic Hgb Equivalent (30.0-35.0) pg PT (10.9-12.4) SEC INR (0.9-1.1) APTT (26.0-36.8) SEC Sodium (135-145) mmol/L Potassium (3.3-5.1) mmol/L Chloride (96-108) mmol/L Carbon Dioxide (22-29) mmol/L Anion Gap (12-20) BUN (9-16) mg/dL Creatinine (0.5-1.4) mg/dL Estim Creat Clear Calc Estimated GFR Random Glucose (60-115) mg/dL Lactic Acid (0.5-2.0) mmol/L Lactic Acid F/U @ 2Hr 3.3 H* (0.5-2.0) mmol/L Calcium (8.4-10.2) mg/dL Iron (45-160) mcg/dL TIBC (228-428) mcg/dL % Saturation (15-50) % Unsat Iron Binding ug/dL Total Bilirubin (0.0-1.0) mg/dL Direct Bilirubin (0.0-0.5) mg/dL AST (5-37) U/L ALT (0-40) U/L Alkaline Phosphatase (39-117) U/L Lactate Dehydrogenase (118-273) U/L Total Protein (6.5-8.0) g/dL Albumin (3.5-5.0) g/dL Lipase (8-78) U/L Stool Occult Blood (NEGATIVE) Ethyl Alcohol mg/dL Hepatitis A IgM Ab (Nonreactive) Hep Bs Antigen (Negative) Hep Bs Antibody (Nonreactive) Hep B Core Total Ab (Nonreactive) Hepatitis C Ab (EIA) (Nonreactive) Influenza Type A (PCR) (Negative) Influenza Type B (PCR) (Negative) RSV RNA Qual (PCR) (Negative) SARS-CoV-2 RNA (RT-PCR) (Negative) Blood Type Antibody Screen Crossmatch Independent Interpretation I performed an independent interpretation of an: EKG, Plain X-Ray and CT Scan Interpretation: EKG with sinus tachycardia, ventricular rate 103 beats per minute, PVCs present, QTC 392, no ST segment elevations or depressions. Chest x-ray with left-sided pleural effusion CT of the abdomen with ascites, severe hepatomegaly, splenomegaly Radiology Impression Discussion of test interpretation with radiology: I have reviewed the radiologist's reading. Radiologist Impression: CT/CT abdomen pelvis w IV con IMPRESSION: 1. Small left pleural effusion with partial collapse and consolidation of the left lower lobe. 2. Patchy airspace opacities in the right upper lobe are likely inflammatory. 3. Enlarged heterogeneously enhancing liver which may represent early cirrhosis or hepatitis. No discrete lesion. Prominent vessels at the junction of the spleen and gastric fundus may be due to portal hypertension. There is a rounded focus of increased density within the adjacent posterior stomach which may have been ingested, although could represent a dilated vessel/vascular malformation or possible arterial extravasation. 4. Moderate ascites. Anasarca. 5. Fluid-filled esophagus. External Record Review External record reviewed: Prior outpatient labs Tests considered The following testing was considered but not selected: RUQ U/S considered to evaluate for PVT Prescription Management I considered prescription management with: Antibiotic Chronic Conditions Patient?s care impacted by: Other (Alcohol use disorder) Social Determinants Patient?s care significantly limited by Social Determinants of Health including: Problems related to primary support group and Other Social Determinant of Health Critical Care Time Critical Care Time Critical Care Time: Yes Total Critical Care Time: 72 Attestation: I have personally provided critical care time exclusive of time spent on separately billable procedures. Time includes review of lab data, radiology results, discussion with consultants, and monitoring for potential decompensation. Intervention performed as documented. Discharge Plan Discharge Clinical Impression: Acute blood loss anemia, Alcoholic hepatitis, Pleural effusion, Ascites, Alcohol withdrawal, Coagulopathy, Pneumonia, Acute GI bleeding Patient Disposition: Admitted As Inpatient
[2024-07-30 10:38] LABS: Immature Retic Fraction 28.9 % (2.3-13.4); Retic HGB Equivalent 25.2 pg (30.0-35.0); Reticulocytes Absolute 0.123 X10*6/uL (0.026-0.095); SLIDE REVIEW VERIFIED
[2024-07-30 10:39] LABS: Reticulocyte Percent 7.4 % (0.5-1.8)
[2024-07-30 10:46] LABS: Iron 13 mcg/dL (45-160); Percent Iron Saturation 8 % (15-50); Total Iron Binding Capacity 173 mcg/dL (228-428); Unsaturated Iron Binding 160 ug/dL
[2024-07-30 10:46] LABS: INTERNATIONAL NORM RATIO 2.2 (0.9-1.1); Prothrombin Time 25.8 SEC (10.9-12.4)
[2024-07-30] MEDS: LORazepam 2 MG/ML VIAL IVPUSH (10:47)
[2024-07-30] MEDS: Pantoprazole Sodium 40 MG/10 ML VIAL IVPUSH ×2 (10:47→16:49)
[2024-07-30 10:49] LABS: Partial Thromboplastin Time 38.8 SEC (26.0-36.8)
[2024-07-30 11:01] LABS: HBS Num1 423.22 mIU/mL (0-7.99); HBc Num1 0.08 S/CO (0.00-0.79); Hepatitis A Antibody IgM 0.16 Index (0-0.79); Hepatitis B Core Antibody Nonreactive (Nonreactive); Hepatitis B Surface Antigen Negative (Negative); ~HepC Num1 0.19 S/CO (0.00-0.79); ~Hepatitis A Antibody IgM Nonreactive (Nonreactive); ~Hepatitis B Surface Antibody REACTIVE (Nonreactive); ~Hepatitis C Antibody Nonreactive (Nonreactive)
[2024-07-30] MEDS: Phytonadione (Vit K1) Oral 10 MG/ML AMPUL PO (11:06)
[2024-07-30] MEDS: PHENobarbitaL sodium 130 MG/ML IM ONCE 300 MG IM (11:07)
[2024-07-30] MEDS: cefTRIAXone sodium 1 GM in 0.9 % Sodium Chloride 50 ML IV (11:09)
[2024-07-30 11:23] LABS: Lactic Acid 3.9 mmol/L (0.5-2.0)
[2024-07-30 11:40] LABS: Lactate Dehydrogenase 230 U/L (118-273)
[2024-07-30 12:02] LABS: Influenza A PCR NEGATIVE (Negative); Influenza B PCR NEGATIVE (Negative); Resp Syncy Virus RNA Qual PCR NEGATIVE (Negative); SARS COV2 PCR INHOUSE NEGATIVE (Negative)
[2024-07-30] MEDS: iohexoL 350 MG/ML 100 ML INFUS..BTL IV (12:04)
[2024-07-30 12:58] LABS: Reflex Lactate? Lactic Acid Added
[2024-07-30 13:08] LABS: OBS Int Ctl Valid YES; OBS1 POSITIVE (NEGATIVE)
[2024-07-30] MEDS: Octreotide Acetate 500 MCG in 0.9 % Sodium Chloride 500 ML 50.1 MCG IVCONT ×2 (13:44→23:39)
--- NOTE | 2024-07-30 13:54 | PC.NURSE ---
Late charting d/t pt care. Pt comes from home for jaundice skin, abdominal distention, ETOH withdrawal. Upon arrival pt tremulous, short of breath. Skin appears jaundiced with petechiae on upper chest. Pitting edema noted to bilteral lower extremities, pt states he has had this x2 months. A/ox4, speaking in full sentences, increased sob noted, lung sounds cta bilaterally, pt O2 sat dropped to high 80s on room air, placed on 2L NC and FRANCO Shabazz made aware, pt maintaining O2 sat 90-93% on 2L, pt tachycardic on security monitor, HR 110s-120s, abdomen distended, tender on palpation. Pt medicated per DEC, 20g IV placed in left ac and right forearm. Call gibbons within reach, all needs met at this time.
[2024-07-30 14:00] LABS: ~Lactic Acid-LAB USE ONLY 3.3 mmol/L (0.5-2.0)
[2024-07-30] MEDS: Albumin Human 25 % 100 ML 133.33 ML IV ×2 (14:41→15:42)
[2024-07-30] MEDS: Azithromycin 500 MG in 0.9 % Sodium Chloride 250 ML 125 MG IV (14:51)
[2024-07-30] MEDS: PHENobarbitaL sodium 130 MG/ML VIAL IM Q3Hx2 226 MG IM ×2 (15:36→18:03)
[2024-07-30] MEDS: Furosemide 20 MG/2 ML VIAL IVPUSH ×2 (15:38→22:37)
[2024-07-30 15:45] LABS: Reflex Lactate? 2 Y
--- NOTE | 2024-07-30 15:49 | PM.EVENT ---
Event Note Date of Service: 07/30/24 Event Note: GI consult dictated Alcoholic hepatitis severe anemia/ gi blood loss Rec: Transfuse, correct coagulopathy paracentesis, r/o sbp egd 07/31 hold off on steroids for alcoholic hepatitis. Time Spent With Patient Time: Total time managing care of this patient today ____ minutes.
--- NOTE | 2024-07-30 15:52 | MHC.SHP ---
Pre-Procedural Eval Section A - 24 Hr Update-Section A only Date of Service: 07/30/24 The patient is an INPATIENT: Yes Changes since office visit: No Cold of Flu in the past 2 weeks, No New Medical Problems, No Changes in Medication and No Patient answered all questions The patient has been examined within 24 hours of the surgical procedure. The History & Physical has been completed within 30 days and I have reviewed it.: Yes Section B - Complete if H&P > 30 days Chief Complaint: GIB Allergies: Allergies Allergy/AdvReac Type Severity Reaction Status Date / Time No Known Allergies Allergy Verified 07/30/24 09:46 Plan I have reviewed the history and physical and performed a pertinent physical examination on my patient. No changes have occurred unless specified. Time Spent With Patient Time: Total time managing care of this patient today ____ minutes.
--- NOTE | 2024-07-30 15:55 | PC.NURSE ---
First unit of RBC infused. Pt tolerated well, no adverse reactions.
--- NOTE | 2024-07-30 15:56 | PC.NURSE ---
Pt BP 91/52. FRANCO Shabazz made of aware of low BP. Pt medicated per DEC.
--- NOTE | 2024-07-30 15:58 | PC.NURSE ---
? Sepsis Spoke with FRANCO Shabazz, at this time she doesn't believe pt meets sepsis criteria. MD Navarro in agreement.
--- NOTE | 2024-07-30 16:00 | PC.NURSE ---
Per MD Montaño, second unit of blood in 2 hours. First unit infused, pt tolerated well. Call gibbons within reach, all needs met at this time.
--- NOTE | 2024-07-30 16:18 | PHA.MEDREC ---
Addendum entered by Duncan Nunez 07/30/24 16:55: Reviewed Original Note: Pharmacy Consult ? Medication Reconciliation Pharmacy has completed the medication reconciliation. Spoke to patient to confirm med list, however he was very sleepy. He just stated he has his medications on the table and feel back to sleep. Utilized list to confirm claims. Not sure when the last time patient took his medication because i couldn't wake him. All of patients bottles are completely filled and last fill days are from November and december for 90 day supply.
[2024-07-30] MEDS: Albumin Human 25 % 100 ML IV ×2 (16:47→21:42)
[2024-07-30] MEDS: Phytonadione (Vit K1) 10 MG in 0.9 % Sodium Chloride 50 ML 51 MG IV (17:44)
--- NOTE | 2024-07-30 19:04 | HO.SKINPHOTO ---
Location: left lower extremity Category: cellulitis Location: left lower extremity Category: cellulitis Location: right anterior lower leg Category: healed abrasions
--- NOTE | 2024-07-30 19:07 | PC.NURSE ---
Assumed care of patient 17:30 Pt alert to name, A+Ox3, vague to situation Pt vital signs stable with MAP goal >65. 1 unit RBCs received from blood bank and given Vitamin K 10mg IV started Pedal pulses positive by doppler. 4+ edema to BLE. Redness / cellulitis to left lower leg outlined in skin marker. smear BM with dark brown stool Pt given 3rd IM injection phenobarbital per protocol and orders RN to RN report given to next RN
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
[2024-07-30] MEDS: Thiamine HCL 100 MG in 0.9 % Sodium Chloride 100 ML 202 MG IV (20:53)
[2024-07-30 21:21] LABS: Mean Corpuscular Hemoglobin 33.2 pg (27.0-33.0); Mean Corpuscular Volume 94.7 fL (80.0-98.0); Mean Platelet Volume 10.8 fL (9.4-12.4); NRBC Pct Auto 0.3 /100WBC (0.0-0.2); Platelet Count 167 X10*3/uL (160-400); Red Cell Distribution Width 16.6 % (11.0-16.0); White Blood Count 21.2 X10*3/uL (4.8-10.8)
[2024-07-30 21:34] LABS: Hemoglobin 6.3 g/dl (14.0-18.0)
[2024-07-30 21:53] LABS: SLIDE REVIEW MANUAL DIFF
[2024-07-30 21:57] LABS: Basophils Abs Manual 0.2 X10*3/uL (0.0-0.2); Basophils Percent Manual 1 % (0-2); Eosinophils Absolute Manual 0.4 X10*3/uL (0.0-0.4); Eosinophils Percent Manual 2 % (0-4); Lymphocytes Percent Manual 19 % (20-40); Monocytes Absolute Manual 0.4 X10*3/uL (0.1-1.2); Monocytes Percent Manual 2 % (2-11); Neutrophils Percent Manual 76 % (45-73); Target Cells 1+ (5-14) /OIF
[2024-07-30 22:01] LABS: Platelet Estimate NORMAL (NORMAL); Platelet Morphology Comment NORMAL; RBC Morphology NOTED
[2024-07-30 22:02] LABS: Band Neutrophils Percent 0 % (3-5); Neutrophils Absolute Manual 16.1 X10*3/uL (2.0-8.3)
[2024-07-31] VITALS (49 sets, daily range): BP systolic 87–147; BP diastolic 45–78; PULSE 76–121; RESP 15–28; TEMP 31–37.4; O2SAT 89–96; BMI 29.1
--- NOTE | 2024-07-31 01:25 | CONS_ITS ---
DATE OF SERVICE: 07/30/2024 REFERRING PHYSICIAN: FRANCO Marquez REASON FOR CONSULTATION: GI bleeding and alcoholic hepatitis. HISTORY OF PRESENT ILLNESS: The patient is a 39-year-old man, who was admitted to the hospital after presenting to the emergency department today with complaints of 2 months of jaundice and bloating. He has also noticed lower extremity swelling. He reports intermittent black stools, but denies any hematemesis or coffee-grounds emesis. He states he drinks 2 drinks of hard liquor a day, down from 8 previously on a daily basis. He was evaluated in the emergency department, where laboratory work and imaging studies were obtained and are reviewed. Hematocrit on admission is low at 16.3 with no comparison baseline. White count is 23. Blood alcohol level was 35 and chemistries show bilirubin of 11.1 with transaminases elevated in a pattern consistent with alcohol. INR was elevated at 2.2. Imaging was obtained, which is reviewed. The liver was enlarged. There is a rounded focus of increased density within the posterior stomach, which may have been ingested, but could represent a dilated vessel/vascular malformation or possible arterial extravasation. Also noted was ascites and a fluid-filled esophagus. The patient is currently being treated with blood transfusion, albumin, phenobarbital, octreotide, and pantoprazole. He has also been given vitamin K. PAST MEDICAL HISTORY: 1. Alcohol abuse. 2. Hypertension. 3. Anxiety. 4. Gastroesophageal reflux disease. 5. Substance abuse. CURRENT MEDICATIONS: His current medication list is reviewed in the chart. ALLERGIES: THERE ARE NONE REPORTED. FAMILY HISTORY: This is reviewed in the electronic medical record. SOCIAL HISTORY: Alcohol abuse as above. REVIEW OF SYSTEMS: This is not reliably obtainable. PHYSICAL EXAMINATION: GENERAL: Shows a jaundiced male, who was somnolent. VITAL SIGNS: Reviewed in the electronic medical record and are stable. SKIN: Icteric. Multiple spider angiomatous. HEENT: Shows no scleral icterus. NECK: Without lymphadenopathy or thyromegaly. LUNGS: Clear. HEART: Shows a regular rate and rhythm. S1, S2. No murmur. ABDOMEN: Distended. Bowel sounds are present. There appears to be ascites and the liver edge is palpable approximately 12 cm below the right costal margin. EXTREMITIES: Show edema. LABORATORY DATA AND IMAGING STUDIES: Reviewed. IMPRESSION: 1. Alcoholic hepatitis. 2. Severe anemia with history of black stools. I discussed with the patient the need to avoid alcohol. He currently may be starting early withdrawal and I agree with treating him with phenobarbital. I would hold off on steroids at this time given his elevated white count. I have recommended paracentesis for further diagnosis and to rule out SBP. I have discussed endoscopy with him. His presentation does not appear consistent with active upper GI bleeding right at this time. Therefore, I would recommend transfusing him and correcting his coagulopathy prior to endoscopy. I have discussed endoscopy with him including risks and benefits of the procedure. He understands these and agrees to proceed. This will be arranged for tomorrow. Thanks for asking me to see him. I will follow him in the hospital with you. MD LORENA Franco/KAYLAH / [phone]
[2024-07-31] MEDS: Calcium Chloride 1 GM/10 ML SYRINGE 0.5 GM IVPUSH (02:35)
[2024-07-31] MEDS: Albumin Human 25 % 100 ML IV ×3 (03:32→20:29)
[2024-07-31 05:38] LABS: MANUAL DIFF FLAG NO
[2024-07-31 05:40] LABS: Basophils Absolute Auto 0.1 X10*3/uL (0.0-0.2); Basophils Percent Auto 0.7 % (0-2); Eosinophils Absolute Auto 0.7 X10*3/uL (0.0-0.4); Eosinophils Percent Auto 3.5 % (0-4); Hematocrit 21.2 % (42.0-52.0); Hemoglobin 7.4 g/dl (14.0-18.0); Imm Gran Abs Auto 0.14 X10*3/uL (0.00-0.03); Imm Gran Pct Auto 0.7 % (0.0-0.4); Lymphocytes Absolute Auto 3.8 X10*3/uL (1.2-4.9); Lymphocytes Percent Auto 19.2 % (20-40); Mean Corpuscular HGB Conc 34.9 g/dl (31.0-36.0); Mean Corpuscular Hemoglobin 31.9 pg (27.0-33.0); Mean Corpuscular Volume 91.4 fL (80.0-98.0); Mean Platelet Volume 10.8 fL (9.4-12.4); Monocytes Absolute Auto 1.5 X10*3/uL (0.1-1.2); Monocytes Percent Auto 7.6 % (2-11); NRBC Pct Auto 0.4 /100WBC (0.0-0.2); Neutrophils Absolute Auto 13.6 x10*3/uL (2.0-8.3); Neutrophils Percent Auto 68.3 % (45-73); Platelet Count 170 X10*3/uL (160-400); Red Blood Count 2.32 X10*6/uL (4.60-5.80); Red Cell Distribution Width 17.2 % (11.0-16.0); White Blood Count 19.9 X10*3/uL (4.8-10.8)
[2024-07-31 05:43] LABS: VBG Base Excess 1.6 mmol/L; VBG HCO3 21 mmol/L (22-26); VBG pCO2 21 mmHg; VBG pH 7.61 (7.32-7.43); VBG pO2 70 mmHg
[2024-07-31 05:45] LABS: INTERNATIONAL NORM RATIO 1.9 (0.9-1.1); Prothrombin Time 21.7 SEC (10.9-12.4)
[2024-07-31] MEDS: Pantoprazole Sodium 40 MG/10 ML VIAL IVPUSH ×2 (05:54→15:43)
[2024-07-31 05:55] LABS: Venous Blood Gas Refer to POC result
[2024-07-31 06:03] LABS: Alanine Aminotransferase 16 U/L (0-40); Albumin Level 2.8 g/dL (3.5-5.0); Alkaline Phosphatase 205 U/L (39-117); Anion Gap 14 (12-20); Aspartate Amino Transferase 89 U/L (5-37); Bilirubin Total 11.3 mg/dL (0.0-1.0); Blood Urea Nitrogen 27 mg/dL (9-16); Calcium 8.9 mg/dL (8.4-10.2); Carbon Dioxide 20 mmol/L (22-29); Chloride 102 mmol/L (96-108); Creatinine Clr Calc Pharmacy 141.7; Estimated Glomerular Filt Rate > 60; Glucose Random 109 mg/dL (60-115); Phosphorus 4.1 mg/dL (2.7-4.5); Potassium 3.4 mmol/L (3.3-5.1); Sodium 133 mmol/L (135-145); Total Protein 6.3 g/dL (6.5-8.0)
[2024-07-31] MEDS: Potassium Chloride/H20 10 MEQ/100 ML PIGGYBACK 100 MEQ IV ×4 (07:27→21:35)
[2024-07-31] MEDS: Thiamine HCL 100 MG in 0.9 % Sodium Chloride 100 ML 202 MG IV (08:25)
[2024-07-31] MEDS: Folic Acid 1 MG in 0.9 % Sodium Chloride 50 ML 100.4 MG IV (08:26)
--- NOTE | 2024-07-31 08:39 | PM.GIPN ---
Subjective Subjective Date of Service: 07/31/24 Interval History: more alert today no bleeding reported overnight Critical Care Time (minutes): 30 Physical Exam Vital Signs: Vital Signs: Last Vital Signs Temp 99.0 F 07/31/24 08:00 Pulse 104 H 07/31/24 08:00 Resp 28 H 07/31/24 08:00 BP 97/52 L 07/31/24 08:00 Pulse Ox 92 07/31/24 08:00 O2 Del Method Nasal Cannula 07/31/24 08:00 O2 Flow Rate 3 07/31/24 08:00 BMI result Body Mass Index 29.1 Const: Other: responsive GI: Other: abdomen is soft and nontender Extrem: Other: edema present Objective Data Labs 07/31/24 05:31 07/31/24 05:31 Procedures Date of Service Date of Service: 07/31/24 Progress Note: A&P Assessment and plan (1) Acute GI bleeding: Status: Acute Assessment and Plan: appropriate response to prbc transfusion no active bleeding documented continues on ppi and octreotide EGD today ffp x2 ordered, confirmed with blood bank and [employer]. lfts stable, no steroids at this time given possible underlying infection. Time Spent With Patient Time: Total time managing care of this patient today ____ minutes. Quality Stroke Does the patient have a stroke diagnosis?: No VTE Prior VTE?: No VTE Risk Level:: Medical - moderate - high VTE Device Contraindication: N/A - Device Ordered VTE Drug Contraindication: Treatment Not Indicated
[2024-07-31] MEDS: Octreotide Acetate 500 MCG in 0.9 % Sodium Chloride 500 ML 50.1 MCG IVCONT ×2 (09:40→21:35)
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
[2024-07-31] MEDS: Lidocaine HCl 1 % MPF 30 ML VIAL SUBCUT (10:49)
[2024-07-31] MEDS: propofoL 1,000 MG/100 ML VIAL 28.38 MG IVCONT ×4 (11:30→21:17)
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
[2024-07-31 11:51] LABS: MN% 93.7 %; PMN% 6.3 %; WBC Peritoneal Fluid 0.399 X10*3/uL
[2024-07-31 11:52] LABS: RBC Peritoneal Fluid < 0.002 X10*6/uL
--- NOTE | 2024-07-31 12:00 | PM.EVENT ---
Event Note Date of Service: 07/31/24 Event Note: GI EGD note dictated Grade 2 nonbleeding esophageal varices small distal esophageal ulcer portal hypertensive gastropathy erosive gastritis no bleeding no therapy performed REC: d/c octreotide continue ppi and supportive care monitor HCT advance diet as tolerated. Time Spent With Patient Time: Total time managing care of this patient today ____ minutes.
--- NOTE | 2024-07-31 12:03 | P.BOP_ITS ---
Brief Operative Note Date of Service: 07/31/24 Pre-op diagnosis: gi bleed Post-op diagnosis: same Procedure: EGD Surgeon: Robin Turcios MD Anesthesia: GETA Was an Mixing Machine Tender Cork Gasket used for this Procedure?: No Estimated blood loss (mL): 0 Pathology: none sent Condition: stable Disposition: ICU
[2024-07-31 12:34] LABS: Lymphocyte Peritoneal Fl 50 %; Monocytes Peritoneal Fl 7 %; Neutrophils Peritoneal Fluid 6 %; Other Peritioneal Fl 37 %
[2024-07-31 12:35] LABS: BF Shift QC OK YES
[2024-07-31] MEDS: Furosemide 40 MG/4 ML VIAL IVPUSH ×2 (12:53→20:27)
[2024-07-31] MEDS: cefTRIAXone sodium 1 GM in 0.9 % Sodium Chloride 50 ML IV (13:00)
--- NOTE | 2024-07-31 13:22 | OP_ITS ---
DATE OF SERVICE: 07/31/2024 SURGEON: Robin Turcios MD INDICATIONS: GI bleeding. PREOPERATIVE DIAGNOSIS: POSTOPERATIVE DIAGNOSIS: PROCEDURE PERFORMED: Upper endoscopy. ESTIMATED BLOOD LOSS: COMPLICATIONS: ANESTHESIA: General anesthesia. ASSISTANTS: SPECIMENS: DESCRIPTION OF PROCEDURE: A history and physical was performed. The risks and benefits of the procedure were explained to the patient and informed consent was obtained. The patient was placed in the left lateral decubitus position. The Olympus video gastroscope was introduced into the esophagus, stomach, and duodenum. Examination was performed and the scope was removed. He tolerated the procedure well and was returned to recovery area in stable condition. FINDINGS: Esophagus: The esophagus showed 4 chains of grade 2 varices extending from the EG junction at 42 cm to about 30 cm. There were no stigmata of recent hemorrhage. There was a small distal esophageal ulcer with a clean base. Stomach: The stomach showed no active bleeding. Portal hypertensive gastropathy was present with some superficial erosions in the antrum. No lesion was identified on the posterior wall to correspond to the CT description. No therapy was performed. Duodenum: The bulb and 2nd portion were normal. IMPRESSION: 1. Esophageal varices, nonbleeding. 2. Distal esophageal ulcer. 3. Erosive gastritis. 4. Portal hypertensive gastropathy. RECOMMENDATIONS: 1. Discontinue octreotide. 2. Follow hematocrit. 3. Continue IV proton pump inhibitor. 4. Advance diet as tolerated and continue supportive care. MD LORENA Franco/MODL / [id number] MTDD
[2024-07-31] MEDS: Midazolam HCl/PF 2 MG/2 ML VIAL 4 MG IVPUSH (13:39)
--- NOTE | 2024-07-31 14:06 | MHC.CM.PN ---
Met w/pt to discuss d/c planning: pt resides w/his father, is independent with all care needs, has no DME or services and doesn't ancitipate any needs following d/c. He states his PCP is Dr. Espinosa in [place]. Pt declined a HCP at this time. Pt may benefit from a CARE team consult for ETOH use. Anticipate home without services: family to transport.
[2024-07-31 19:33] LABS: Basophils Absolute Auto 0.1 X10*3/uL (0.0-0.2); Basophils Percent Auto 0.5 % (0-2); Eosinophils Absolute Auto 0.3 X10*3/uL (0.0-0.4); Eosinophils Percent Auto 1.6 % (0-4); Hemoglobin 7.5 g/dl (14.0-18.0); Imm Gran Abs Auto 0.12 X10*3/uL (0.00-0.03); Imm Gran Pct Auto 0.6 % (0.0-0.4); Lymphocytes Absolute Auto 2.2 X10*3/uL (1.2-4.9); Lymphocytes Percent Auto 10.4 % (20-40); MANUAL DIFF FLAG SCAN; Mean Corpuscular HGB Conc 35.9 g/dl (31.0-36.0); Mean Corpuscular Hemoglobin 32.5 pg (27.0-33.0); Mean Corpuscular Volume 90.5 fL (80.0-98.0); Mean Platelet Volume 10.9 fL (9.4-12.4); Monocytes Absolute Auto 1.5 X10*3/uL (0.1-1.2); Monocytes Percent Auto 7.3 % (2-11); NRBC Pct Auto 0.3 /100WBC (0.0-0.2); Neutrophils Absolute Auto 16.8 x10*3/uL (2.0-8.3); Neutrophils Percent Auto 79.6 % (45-73); Platelet Count 162 X10*3/uL (160-400); Red Blood Count 2.31 X10*6/uL (4.60-5.80); Red Cell Distribution Width 17.5 % (11.0-16.0); SCAN SMEAR FLAG 1; White Blood Count 21.1 X10*3/uL (4.8-10.8)
[2024-07-31 19:38] LABS: VBG Base Excess -0.6 mmol/L; VBG HCO3 21 mmol/L (22-26); VBG pCO2 27 mmHg; VBG pO2 78 mmHg
[2024-07-31 19:47] LABS: Hematocrit 20.9 % (42.0-52.0)
[2024-07-31 19:50] LABS: Albumin Level 2.7 g/dL (3.5-5.0); Anion Gap 14 (12-20); Blood Urea Nitrogen 30 mg/dL (9-16); Calcium 8.5 mg/dL (8.4-10.2); Carbon Dioxide 21 mmol/L (22-29); Chloride 103 mmol/L (96-108); Creatinine Clr Calc Pharmacy 116.4; Estimated Glomerular Filt Rate > 60; Glucose Random 121 mg/dL (60-115); Magnesium 1.9 mg/dL (1.6-2.6); Phosphorus 4.8 mg/dL (2.7-4.5); Potassium 3.6 mmol/L (3.3-5.1); Sodium 134 mmol/L (135-145)
[2024-07-31 20:10] LABS: SLIDE REVIEW VERIFIED
[2024-07-31] MEDS: Thiamine HCL 100 MG in 0.9 % Sodium Chloride 100 ML 200 MG IV (21:44)
[2024-07-31 22:15] LABS: Venous Blood Gas Refer to POC result
[2024-08-01] VITALS (47 sets, daily range): BP systolic 88–115; BP diastolic 41–64; PULSE 74–94; RESP 17–32; TEMP 34.5–36.8; O2SAT 89–95; BMI 30.5
[2024-08-01 00:07] LABS: Basophils Absolute Auto 0.1 X10*3/uL (0.0-0.2); Basophils Percent Auto 0.5 % (0-2); Eosinophils Absolute Auto 0.4 X10*3/uL (0.0-0.4); Eosinophils Percent Auto 2.2 % (0-4); Hemoglobin 7.3 g/dl (14.0-18.0); Imm Gran Pct Auto 0.5 % (0.0-0.4); Lymphocytes Absolute Auto 2.7 X10*3/uL (1.2-4.9); Lymphocytes Percent Auto 14.2 % (20-40); MANUAL DIFF FLAG SCAN; Mean Corpuscular HGB Conc 34.9 g/dl (31.0-36.0); Mean Corpuscular Hemoglobin 31.9 pg (27.0-33.0); Mean Corpuscular Volume 91.3 fL (80.0-98.0); Monocytes Absolute Auto 1.6 X10*3/uL (0.1-1.2); Monocytes Percent Auto 8.3 % (2-11); NRBC Pct Auto 0.2 /100WBC (0.0-0.2); Neutrophils Absolute Auto 14.3 x10*3/uL (2.0-8.3); Neutrophils Percent Auto 74.3 % (45-73); Platelet Count 149 X10*3/uL (160-400); Red Cell Distribution Width 17.8 % (11.0-16.0); SCAN SMEAR FLAG 1; White Blood Count 19.2 X10*3/uL (4.8-10.8)
[2024-08-01 00:09] LABS: Hematocrit 20.9 % (42.0-52.0); Red Blood Count 2.29 X10*6/uL (4.60-5.80)
[2024-08-01 00:18] LABS: Lactic Acid 0.9 mmol/L (0.5-2.0)
--- NOTE | 2024-08-01 00:18 | PM.EVENT ---
Documented by User: Zakiya Isaacs NP 08/01/24 00:19 Event Note Date of Service: 08/01/24 Event Note: Hypotension from sedation, lactic is negative. No evidence of severe sepsis Time Spent With Patient Time: Total time managing care of this patient today ____ minutes. Documented by User: Rosas Montaño MD 08/01/24 12:02 Event Note Date of Service: 08/01/24
[2024-08-01] MEDS: Norepinephrine Bitartrate/D5W 8 MG/250 ML PLAST..BAG 8.87 MG IVCONT ×2 (00:20→17:35)
[2024-08-01] MEDS: propofoL 1,000 MG/100 ML VIAL 22.7 MG IVCONT (00:32)
[2024-08-01] MEDS: Albumin Human 25 % 100 ML IV ×4 (02:35→19:45)
[2024-08-01] MEDS: propofoL 1,000 MG/100 ML VIAL 28.38 MG IVCONT ×6 (04:23→21:33)
[2024-08-01 04:59] LABS: VBG Base Excess -1.6 mmol/L; VBG HCO3 20 mmol/L (22-26); VBG pCO2 27 mmHg; VBG pH 7.48 (7.32-7.43); VBG pO2 62 mmHg
[2024-08-01 05:03] LABS: Basophils Absolute Auto 0.1 X10*3/uL (0.0-0.2); Basophils Percent Auto 0.5 % (0-2); Eosinophils Absolute Auto 0.4 X10*3/uL (0.0-0.4); Eosinophils Percent Auto 2.2 % (0-4); Hematocrit 23.9 % (42.0-52.0); Hemoglobin 8.4 g/dl (14.0-18.0); Imm Gran Abs Auto 0.12 X10*3/uL (0.00-0.03); Imm Gran Pct Auto 0.6 % (0.0-0.4); Lymphocytes Absolute Auto 2.7 X10*3/uL (1.2-4.9); Lymphocytes Percent Auto 13.7 % (20-40); MANUAL DIFF FLAG SCAN; Mean Corpuscular HGB Conc 35.1 g/dl (31.0-36.0); Mean Corpuscular Hemoglobin 32.1 pg (27.0-33.0); Mean Corpuscular Volume 91.2 fL (80.0-98.0); Mean Platelet Volume 11.1 fL (9.4-12.4); Monocytes Absolute Auto 1.6 X10*3/uL (0.1-1.2); NRBC Pct Auto 0.3 /100WBC (0.0-0.2); Neutrophils Absolute Auto 14.7 x10*3/uL (2.0-8.3); Platelet Count 173 X10*3/uL (160-400); Red Blood Count 2.62 X10*6/uL (4.60-5.80); Red Cell Distribution Width 17.1 % (11.0-16.0); SCAN SMEAR FLAG 1; White Blood Count 19.6 X10*3/uL (4.8-10.8)
[2024-08-01 05:10] LABS: Ammonia 187 umol/L (13-55)
[2024-08-01 05:11] LABS: Alanine Aminotransferase 16 U/L (0-40); Albumin Level 3.4 g/dL (3.5-5.0); Alkaline Phosphatase 178 U/L (39-117); Anion Gap 15 (12-20); Aspartate Amino Transferase 82 U/L (5-37); Blood Urea Nitrogen 33 mg/dL (9-16); Calcium 8.9 mg/dL (8.4-10.2); Carbon Dioxide 20 mmol/L (22-29); Chloride 102 mmol/L (96-108); Creatinine Clr Calc Pharmacy 98.4; Estimated Glomerular Filt Rate > 60; Glucose Random 127 mg/dL (60-115); Phosphorus 4.4 mg/dL (2.7-4.5); Potassium 3.4 mmol/L (3.3-5.1); Sodium 134 mmol/L (135-145); Total Protein 6.8 g/dL (6.5-8.0)
[2024-08-01 05:18] LABS: INTERNATIONAL NORM RATIO 1.7 (0.9-1.1); Prothrombin Time 19.3 SEC (10.9-12.4)
[2024-08-01] MEDS: Pantoprazole Sodium 40 MG/10 ML VIAL IVPUSH ×2 (05:23→15:58)
[2024-08-01 05:28] LABS: SLIDE REVIEW VERIFIED
[2024-08-01 05:55] LABS: Venous Blood Gas Refer to POC result
[2024-08-01] MEDS: Potassium Chloride/H20 10 MEQ/100 ML PIGGYBACK 100 MEQ IV ×4 (06:12→11:55)
[2024-08-01] MEDS: Octreotide Acetate 500 MCG in 0.9 % Sodium Chloride 500 ML 50.1 MCG IVCONT ×2 (06:14→15:59)
[2024-08-01 07:30] LABS: LDH Peritoneal Fluid 42
[2024-08-01 07:37] LABS: Albumin Peritoneal Fluid 0.4
--- NOTE | 2024-08-01 08:03 | P.POSTANES_ITS ---
Post Anesthesia Evaluation Post Anesthesia Evaluation Date of Service: 08/01/24 Vital Signs: Vital Signs Temp Pulse Resp BP Pulse Ox O2 Del Method FiO2 08/01/24 07:31 55 08/01/24 07:30 93 55 08/01/24 07:00 97.2 F 79 18 104/54 L 94 Mechanical Ventilation 55 08/01/24 06:00 97.2 F 82 20 106/55 L 93 Mechanical Ventilation 55 08/01/24 05:00 97.2 F 79 17 103/54 L 92 Mechanical Ventilation 55 08/01/24 04:53 55 08/01/24 04:23 84 20 107/56 L 93 08/01/24 04:23 84 20 107/56 L 93 08/01/24 04:00 97 F 84 20 113/60 93 Mechanical Ventilation 55 08/01/24 03:59 86 20 113/60 08/01/24 03:24 92 55 08/01/24 02:48 97.8 F 80 20 107/61 93 Mechanical Ventilation 55 08/01/24 02:00 97 F 77 18 103/59 L 95 Mechanical Ventilation 55 08/01/24 01:07 97.7 F 78 20 104/61 08/01/24 01:06 97.8 F 78 20 105/62 08/01/24 01:00 96.8 F 78 18 106/62 93 Mechanical Ventilation 55 08/01/24 00:51 97.6 F 76 18 101/59 L 08/01/24 00:43 97.7 F 76 18 98/57 L 08/01/24 00:41 76 98/57 L 08/01/24 00:32 75 18 98/59 L 92 08/01/24 00:32 75 18 98/59 L 92 08/01/24 00:20 74 88/45 L 08/01/24 00:16 55 07/31/24 23:59 98.0 F 76 18 88/45 L 94 Mechanical Ventilation 55 07/31/24 23:43 78 18 87/49 L 93 07/31/24 23:28 93 55 07/31/24 23:00 97.3 F 79 16 103/52 L 93 Mechanical Ventilation 65 07/31/24 21:54 97.6 F 83 19 106/56 L 90 L Mechanical Ventilation 65 07/31/24 21:17 84 18 104/55 L 91 L 07/31/24 21:17 84 18 104/55 L 91 L 07/31/24 20:51 97.9 F 85 16 106/57 L 92 Mechanical Ventilation 65 07/31/24 20:27 107/56 L Anesthesia: General Endotracheal-GETA Mental Status: Sedated Hydration: Adequate Anesthesia-Related Issues: No Anes. Related Issues Comments: Patient remains intubated and sedated in the ICU. Required levophed overnight due to hypotension. Care managed by primary ICU team. Anesthesia team to follow- up as necessary.
[2024-08-01] MEDS: Thiamine HCL 100 MG in 0.9 % Sodium Chloride 100 ML 202 MG IV ×2 (09:41→21:32)
[2024-08-01] MEDS: Folic Acid 1 MG in 0.9 % Sodium Chloride 50 ML 100.4 MG IV (09:42)
[2024-08-01] MEDS: cefTRIAXone sodium 1 GM in 0.9 % Sodium Chloride 50 ML IV (11:55)
--- NOTE | 2024-08-01 12:02 | P.PNCC_ITS ---
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 On ER evaluation patient in acute liver failure with elevated bilirubin, INR, transaminases, also acute blood loss anemia with initial hemoglobin of 5.6, started on IV fluid and blood product support, also phenobarbital protocol, IV PPI, IV octreotide, empiric ceftriaxone, and admitted to the intensive care unit. Status post EGD 07/31/2024 with no active bleeding noted, but underlying nonbleeding varices and esophageal ulcer, remained intubated at the end of the case and transferred back to the intensive care unit with high FiO2 support requirements. Overnight with diminishing urine output and requiring pressor support. Critical Care Time (minutes): 60 Physical Exam 2 Vital Signs: Vital Signs: Last Vital Signs Temp 97.7 F 08/01/24 11:00 Pulse 85 08/01/24 11:00 Resp 23 H 08/01/24 11:00 BP 107/59 L 08/01/24 11:00 Pulse Ox 91 L 08/01/24 11:00 O2 Del Method Mechanical Ventil ation 08/01/24 11:00 O2 Flow Rate 3 07/31/24 11:00 FiO2 55 08/01/24 11:33 BMI result Body Mass Index 30.5 Const: General: no acute distress and other (Sedated on the vent, jaundiced) Nutritional Appearance: Edematous Eyes: Sclerae: scleral abnormal (Icteric) bilateral EOM: EOMs intact bilaterally Neck: Neck: Yes no lymphadenopathy, Yes trachea midline and Yes supple Resp: Auscultation: crackles bilateral Cardio: Rate: regular rate Rhythm: regular rhythm Heart sounds: no gallops, no murmurs and no rubs GI: Palpation (GI): Soft to palpation and Other GI palpation findings present ( Nontender) Auscultation: normal bowel sounds Extrem: General: No clubbing, No cyanosis and Yes edema (3+ bilateral) Objective Data Labs 08/01/24 04:48 08/01/24 04:48 Labs: Laboratory Results - last 24 hr 07/30/24 07/31/24 07/31/24 11:05 11:38 19:26 WBC 21.1 H RBC 2.31 L Hgb 7.5 L Hct 20.9 L* MCV 90.5 MCH 32.5 MCHC 35.9 RDW 17.5 H Plt Count 162 MPV 10.9 Immature Gran % (Auto) 0.6 H Neut % (Auto) 79.6 H Lymph % (Auto) 10.4 L [place] % (Auto) 7.3 Eos % (Auto) 1.6 Baso % (Auto) 0.5 Lymph # (Auto) 2.2 [place] # (Auto) 1.5 H Eos # (Auto) 0.3 Baso # (Auto) 0.1 Abs Immat Gran (auto) 0.12 H Absolute Neuts (auto) 16.8 H Absolute Nucleated RBC 0.070 H Nucleated RBC % (auto) 0.3 H Smear Tech's Comments VERIFIED PT INR VBG pH VBG pCO2 VBG pO2 VBG HCO3 VBG O2 Saturation VBG Base Excess Sodium 134 L Potassium 3.6 Chloride 103 Carbon Dioxide 21 L Anion Gap 14 BUN 30 H Creatinine 1.01 Estim Creat Clear Calc 116.4 Estimated GFR > 60 Random Glucose 121 H Lactic Acid Calcium 8.5 Phosphorus 4.8 H Magnesium 1.9 Total Bilirubin AST ALT Alkaline Phosphatase Ammonia Total Protein Albumin 2.7 L [place] Neutrophils 6 [place] Lymphocytes 50 Peritoneal Monocytes 7 Peritoneal Other Cells 37 Peritoneal Albumin 0.4 Peritoneal LDH 42 Blood Type A Positive Antibody Screen NEGATIVE Crossmatch See Detail 07/31/24 07/31/24 08/01/24 19:29 23:59 04:46 WBC 19.2 H RBC 2.29 L Hgb 7.3 L Hct 20.9 L* MCV 91.3 MCH 31.9 MCHC 34.9 RDW 17.8 H Plt Count 149 L MPV 11.0 Immature Gran % (Auto) 0.5 H Neut % (Auto) 74.3 H Lymph % (Auto) 14.2 L [place] % (Auto) 8.3 Eos % (Auto) 2.2 Baso % (Auto) 0.5 Lymph # (Auto) 2.7 [place] # (Auto) 1.6 H Eos # (Auto) 0.4 Baso # (Auto) 0.1 Abs Immat Gran (auto) 0.10 H Absolute Neuts (auto) 14.3 H Absolute Nucleated RBC 0.040 H Nucleated RBC % (auto) 0.2 Smear Tech's Comments PT INR VBG pH 7.50 H 7.48 H VBG pCO2 27 27 VBG pO2 78 62 VBG HCO3 21 L 20 L VBG O2 Saturation 97.0 89.0 VBG Base Excess -0.6 -1.6 Sodium Potassium Chloride Carbon Dioxide Anion Gap BUN Creatinine Estim Creat Clear Calc Estimated GFR Random Glucose Lactic Acid 0.9 Calcium Phosphorus Magnesium Total Bilirubin AST ALT Alkaline Phosphatase Ammonia Total Protein Albumin Periton Neutrophils Periton Lymphocytes Peritoneal Monocytes Peritoneal Other Cells Peritoneal Albumin Peritoneal LDH Blood Type Antibody Screen Crossmatch 08/01/24 04:48 WBC 19.6 H RBC 2.62 L Hgb 8.4 L Hct 23.9 L MCV 91.2 MCH 32.1 MCHC 35.1 RDW 17.1 H Plt Count 173 MPV 11.1 Immature Gran % (Auto) 0.6 H Neut % (Auto) 75.0 H Lymph % (Auto) 13.7 L [place] % (Auto) 8.0 Eos % (Auto) 2.2 Baso % (Auto) 0.5 Lymph # (Auto) 2.7 [place] # (Auto) 1.6 H Eos # (Auto) 0.4 Baso # (Auto) 0.1 Abs Immat Gran (auto) 0.12 H Absolute Neuts (auto) 14.7 H Absolute Nucleated RBC 0.050 H Nucleated RBC % (auto) 0.3 H Smear Tech's Comments VERIFIED PT 19.3 H INR 1.7 H VBG pH VBG pCO2 VBG pO2 VBG HCO3 VBG O2 Saturation VBG Base Excess Sodium 134 L Potassium 3.4 Chloride 102 Carbon Dioxide 20 L Anion Gap 15 BUN 33 H Creatinine 1.22 Estim Creat Clear Calc 98.4 Estimated GFR > 60 Random Glucose 127 H Lactic Acid Calcium 8.9 Phosphorus 4.4 Magnesium 2.0 Total Bilirubin 11.0 H AST 82 H ALT 16 Alkaline Phosphatase 178 H Ammonia 187 H Total Protein 6.8 Albumin 3.4 L [place] Neutrophils Periton Lymphocytes Peritoneal Monocytes Peritoneal Other Cells Peritoneal Albumin Peritoneal LDH Blood Type Antibody Screen Crossmatch Microbiology Microbiology Results: Microbiology 07/31/24 11:37 Ascites Fluid Gram Stain - Final 07/31/24 11:37 Ascites Fluid Anaerobic Culture - Preliminary No growth to date. 07/31/24 11:37 Ascites Fluid Body Fluid Culture - Preliminary No growth to date. 07/30/24 11:07 Blood - Venous Blood Culture - Preliminary No growth after 24 hours. 07/30/24 10:45 Blood - Venous Blood Culture - Preliminary No growth after 24 hours. Progress Note: A&P Assessment and plan (1) Cirrhosis: Status: Acute (2) Hepatorenal syndrome: Status: Acute (3) Hepatic failure: Status: Acute (4) Acute blood loss anemia: Status: Acute (5) Acute hypoxic respiratory failure: Status: Acute (6) Pulmonary edema: Status: Acute (7) Coagulopathy: Status: Acute Plan Assessment: 39-year-old gentleman with underlying alcohol abuse admitted with acute blood loss anemia secondary to recent GI bleed, acute liver failure, and alcohol withdrawal Plan: Neuro: Alcohol withdrawal, continue phenobarbital protocol. Cardiac: No acute issues. Pulmonary: Remains intubated after the end of endoscopy secondary to acute hypoxia, continue to titrate off ventilatory support as tolerated. Renal: Hepatorenal syndrome, continue with albumin support. Endo: No acute issues. GI: GI bleed, status post EGD, no active bleeding noted, underlying nonbleeding esophageal varices and esophageal ulcer. Gastroenterology service care appreciated. Continue octreotide drip and IV ppi. Alcoholic cirrhosis with acute liver failure, no systemic glucocorticoids secondary to recent GI bleed. Ascites negative for SBP. ID: 1/2 blood cultures with Staphylococcus, continue empiric ceftriaxone. Heme/Onc: Acute blood loss anemia secondary to GI bleed and coagulopathy secondary to liver cirrhosis, status post 4 units of PRBC, 3 FFP, and 1 platelet. Stabilizing. Continue to monitor blood counts and coagulation studies. Psych: No acute issues. Miscellaneous: No acute issues. Prophylaxis: Pneumatic compression, ppi Diet: NPO Critical care time spent: 60 minutes Quality Stroke Does the patient have a stroke diagnosis?: No VTE Prior VTE?: No VTE Risk Level:: Medical - moderate - high VTE Device Contraindication: N/A - Device Ordered VTE Drug Contraindication: Treatment Not Indicated
--- NOTE | 2024-08-01 12:30 | P.PNGI_ITS ---
Subjective Subjective Date of Service: 08/01/24 Interval History: intubated Critical Care Time (minutes): 30 Physical Exam 2 Vital Signs: Vital Signs: Last Vital Signs Temp 97.7 F 08/01/24 11:00 Pulse 85 08/01/24 11:00 Resp 23 H 08/01/24 11:00 BP 107/59 L 08/01/24 11:00 Pulse Ox 90 L 08/01/24 12:00 O2 Del Method Mechanical Ventil ation 08/01/24 11:00 O2 Flow Rate 3 07/31/24 11:00 FiO2 55 08/01/24 12:00 BMI result Body Mass Index 30.5 Const: Other: sedated GI: Other: abdomen is soft with ascites Extrem: Other: edema present Objective Data Labs 08/01/24 04:48 08/01/24 04:48 Microbiology Microbiology Results: Microbiology 07/30/24 11:07 Blood - Venous Blood Culture - Preliminary Prelim: GPC Gram Stain only 07/31/24 11:37 Ascites Fluid Gram Stain - Final 07/31/24 11:37 Ascites Fluid Anaerobic Culture - Preliminary No growth to date. 07/31/24 11:37 Ascites Fluid Body Fluid Culture - Preliminary No growth to date. 07/30/24 10:45 Blood - Venous Blood Culture - Preliminary No growth after 24 hours. Procedures Date of Service Date of Service: 08/01/24 Progress Note: A&P Assessment and plan (1) Cirrhosis: Status: Acute Assessment and Plan: gi bleeding appears stable continue ppi can d/c octreotide lfts about the same no sbp on ascites testing hold on steroids given blood culture results and elevated wbc Time Spent With Patient Time: Total time managing care of this patient today ____ minutes. Quality Stroke Does the patient have a stroke diagnosis?: No VTE Prior VTE?: No VTE Risk Level:: Medical - moderate - high VTE Device Contraindication: N/A - Device Ordered VTE Drug Contraindication: Treatment Not Indicated
--- NOTE | 2024-08-01 15:48 | MHC.CM.PN ---
Pt now intubated following EDG on 07/31: Weaning attempts to continue into weekend. Pt with cirrhosis in the setting of ETOH abuse: anticipate CARE team when medically stable and return to home with family support and outpt management. CM to follow
[2024-08-01] MEDS: fentaNYL citrate/PF 100 MCG/2 ML VIAL IVPUSH (20:07)
[2024-08-01 20:44] LABS: Anion Gap 15 (12-20); Blood Urea Nitrogen 37 mg/dL (9-16); Calcium 8.7 mg/dL (8.4-10.2); Carbon Dioxide 17 mmol/L (22-29); Chloride 104 mmol/L (96-108); Creatinine Clr Calc Pharmacy 76.5; Estimated Glomerular Filt Rate 50; Glucose Random 127 mg/dL (60-115); Magnesium 2.1 mg/dL (1.6-2.6); Phosphorus 4.2 mg/dL (2.7-4.5); Potassium 3.9 mmol/L (3.3-5.1); Sodium 132 mmol/L (135-145)
[2024-08-02] VITALS (41 sets, daily range): BP systolic 95–112; BP diastolic 45–61; PULSE 77–88; RESP 16–25; TEMP 34.2–37; O2SAT 89–91; BMI 30.2
[2024-08-02] MEDS: 0.9 % Sodium Chloride Flush 3 ML SYRINGE IVFLUSH ×2 (00:14→23:13)
[2024-08-02] MEDS: propofoL 1,000 MG/100 ML VIAL 28.38 MG IVCONT ×8 (00:15→22:57)
[2024-08-02] MEDS: fentaNYL citrate/PF 100 MCG/2 ML VIAL IVPUSH ×2 (00:49→23:10)
[2024-08-02] MEDS: Albumin Human 25 % 100 ML IV ×3 (01:23→13:26)
[2024-08-02] MEDS: Chlorhexidine Gluc Oral Rinse 15 ML MOUTHWASH BUCCAL ×4 (02:56→19:29)
[2024-08-02 05:08] LABS: Basophils Absolute Auto 0.2 X10*3/uL (0.0-0.2); Basophils Percent Auto 0.9 % (0-2); Eosinophils Absolute Auto 0.5 X10*3/uL (0.0-0.4); Eosinophils Percent Auto 2.4 % (0-4); Hematocrit 24.1 % (42.0-52.0); Hemoglobin 8.4 g/dl (14.0-18.0); Imm Gran Abs Auto 0.12 X10*3/uL (0.00-0.03); Imm Gran Pct Auto 0.6 % (0.0-0.4); Lymphocytes Percent Auto 10.8 % (20-40); MANUAL DIFF FLAG SCAN; Mean Corpuscular HGB Conc 34.9 g/dl (31.0-36.0); Mean Corpuscular Hemoglobin 32.2 pg (27.0-33.0); Mean Corpuscular Volume 92.3 fL (80.0-98.0); Mean Platelet Volume 11.6 fL (9.4-12.4); Monocytes Absolute Auto 1.5 X10*3/uL (0.1-1.2); Monocytes Percent Auto 8.2 % (2-11); NRBC Pct Auto 0.1 /100WBC (0.0-0.2); Neutrophils Absolute Auto 14.5 x10*3/uL (2.0-8.3); Neutrophils Percent Auto 77.1 % (45-73); Platelet Count 169 X10*3/uL (160-400); Red Blood Count 2.61 X10*6/uL (4.60-5.80); Red Cell Distribution Width 17.1 % (11.0-16.0); SCAN SMEAR FLAG 1; White Blood Count 18.9 X10*3/uL (4.8-10.8)
[2024-08-02 05:15] LABS: VBG Base Excess -1.8 mmol/L; VBG HCO3 18 mmol/L (22-26); VBG pCO2 21 mmHg; VBG pH 7.55 (7.32-7.43); VBG pO2 93 mmHg
[2024-08-02 05:25] LABS: Alanine Aminotransferase 16 U/L (0-40); Albumin Level 3.8 g/dL (3.5-5.0); Alkaline Phosphatase 155 U/L (39-117); Anion Gap 19 (12-20); Aspartate Amino Transferase 78 U/L (5-37); Bilirubin Total 9.8 mg/dL (0.0-1.0); Blood Urea Nitrogen 40 mg/dL (9-16); Carbon Dioxide 16 mmol/L (22-29); Chloride 103 mmol/L (96-108); Creatinine Clr Calc Pharmacy 71.9; Estimated Glomerular Filt Rate 46; Glucose Random 120 mg/dL (60-115); Magnesium 2.1 mg/dL (1.6-2.6); Phosphorus 4.3 mg/dL (2.7-4.5); Potassium 4.3 mmol/L (3.3-5.1); Sodium 134 mmol/L (135-145); Total Protein 7.3 g/dL (6.5-8.0)
[2024-08-02 05:26] LABS: SLIDE REVIEW VERIFIED
[2024-08-02 05:33] LABS: Venous Blood Gas Refer to POC result
[2024-08-02] MEDS: Pantoprazole Sodium 40 MG/10 ML VIAL IVPUSH ×2 (06:17→15:41)
[2024-08-02] MEDS: Thiamine HCL 100 MG in 0.9 % Sodium Chloride 100 ML 202 MG IV ×2 (08:08→19:29)
[2024-08-02] MEDS: Folic Acid 1 MG in 0.9 % Sodium Chloride 50 ML 100.4 MG IV (08:09)
[2024-08-02] MEDS: cefTRIAXone sodium 1 GM in 0.9 % Sodium Chloride 50 ML IV (10:54)
[2024-08-02 12:03] LABS: Amphetamine Screen Urine Not Detected (Not Detect); Barbiturates, Urine POSITIVE (Not Detect); Benzodiazepines Screen Urine POSITIVE (Not Detect); Buprenorphine Scr Not Detected (Not Detect); Cannabinoid Screen Urine Not Detected (Not Detect); Cocaine Screen Urine POSITIVE (Not Detect); Fentanyl, urine POSITIVE (Not Detect); Methadone Screen, Urine Not Detected (Not Detect); Opiate Screen Urine Not Detected (Not Detect); Oxycodone Screen Urine Not Detected (Not Detect); Phencyclidine Screen Urine Not Detected (Not Detect)
--- NOTE | 2024-08-02 12:51 | P.PNCC_ITS ---
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 On ER evaluation patient in acute liver failure with elevated bilirubin, INR, transaminases, also acute blood loss anemia with initial hemoglobin of 5.6, started on IV fluid and blood product support, also phenobarbital protocol, IV PPI, IV octreotide, empiric ceftriaxone, and admitted to the intensive care unit. Status post EGD 07/31/2024 with no active bleeding noted, but underlying nonbleeding varices and esophageal ulcer, remained intubated at the end of the case and transferred back to the intensive care unit with high FiO2 support requirements. No events overnight. Critical Care Time (minutes): 60 Physical Exam 2 Vital Signs: Vital Signs: Last Vital Signs Temp 97.3 F 08/02/24 12:00 Pulse 80 08/02/24 12:00 Resp 19 08/02/24 12:00 BP 107/57 L 08/02/24 12:00 Pulse Ox 89 L 08/02/24 12:00 O2 Del Method Mechanical Ventil ation 08/02/24 12:00 O2 Flow Rate 3 07/31/24 11:00 FiO2 70 08/02/24 12:00 BMI result Body Mass Index 30.2 Const: General: no acute distress and other (Jaundiced, sedated on the vent) Nutritional Appearance: Edematous Eyes: Sclerae: scleral abnormal bilateral (Icteric) Neck: Neck: Yes no lymphadenopathy, Yes trachea midline and Yes supple Resp: Auscultation: crackles bilateral Cardio: Rate: regular rate Rhythm: regular rhythm Heart sounds: no gallops, no murmurs and no rubs GI: Palpation (GI): Soft to palpation and Other GI palpation findings present ( Nontender) Auscultation: normal bowel sounds Extrem: General: No clubbing, No cyanosis and Yes edema (3+ bilateral) Objective Data Labs 08/02/24 04:52 08/02/24 04:52 Labs: Laboratory Results - last 24 hr 08/01/24 08/01/24 08/02/24 20:16 Unknown 04:52 WBC 18.9 H RBC 2.61 L Hgb 8.4 L Hct 24.1 L MCV 92.3 MCH 32.2 MCHC 34.9 RDW 17.1 H Plt Count 169 MPV 11.6 Immature Gran % (Auto) 0.6 H Neut % (Auto) 77.1 H Lymph % (Auto) 10.8 L [place] % (Auto) 8.2 Eos % (Auto) 2.4 Baso % (Auto) 0.9 Lymph # (Auto) 2.0 [place] # (Auto) 1.5 H Eos # (Auto) 0.5 H Baso # (Auto) 0.2 Abs Immat Gran (auto) 0.12 H Absolute Neuts (auto) 14.5 H Absolute Nucleated RBC 0.020 H Nucleated RBC % (auto) 0.1 Smear Tech's Comments VERIFIED Hold Purple Top SEE NOTE VBG pH VBG pCO2 VBG pO2 VBG HCO3 VBG O2 Saturation VBG Base Excess Sodium 132 L 134 L Potassium 3.9 4.3 Chloride 104 103 Carbon Dioxide 17 L 16 L Anion Gap 15 19 BUN 37 H 40 H Creatinine 1.57 H 1.67 H Estim Creat Clear Calc 76.5 71.9 Estimated GFR 50 46 Random Glucose 127 H 120 H Calcium 8.7 9.0 Phosphorus 4.2 4.3 Magnesium 2.1 2.1 Total Bilirubin 9.8 H AST 78 H ALT 16 Alkaline Phosphatase 155 H Total Protein 7.3 Albumin 3.8 Urine Opiates Screen Ur Buprenorphine Scrn Ur Oxycodone Screen Urine Methadone Screen Urine Fentanyl Screen Ur Barbiturates Screen Ur Phencyclidine Scrn Ur Amphetamines Screen U Benzodiazepines Scrn Urine Cocaine Screen U Marijuana (THC) Screen 08/02/24 08/02/24 05:12 11:07 WBC RBC Hgb Hct MCV MCH MCHC RDW Plt Count MPV Immature Gran % (Auto) Neut % (Auto) Lymph % (Auto) [place] % (Auto) Eos % (Auto) Baso % (Auto) Lymph # (Auto) [place] # (Auto) Eos # (Auto) Baso # (Auto) Abs Immat Gran (auto) Absolute Neuts (auto) Absolute Nucleated RBC Nucleated RBC % (auto) Smear Tech's Comments Hold Purple Top VBG pH 7.55 H VBG pCO2 21 VBG pO2 93 VBG HCO3 18 L VBG O2 Saturation 99.0 VBG Base Excess -1.8 Sodium Potassium Chloride Carbon Dioxide Anion Gap BUN Creatinine Estim Creat Clear Calc Estimated GFR Random Glucose Calcium Phosphorus Magnesium Total Bilirubin AST ALT Alkaline Phosphatase Total Protein Albumin Urine Opiates Screen Not Detected Ur Buprenorphine Scrn Not Detected Ur Oxycodone Screen Not Detected Urine Methadone Screen Not Detected Urine Fentanyl Screen POSITIVE H Ur Barbiturates Screen POSITIVE H Ur Phencyclidine Scrn Not Detected Ur Amphetamines Screen Not Detected U Benzodiazepines Scrn POSITIVE H Urine Cocaine Screen POSITIVE H U Marijuana (THC) Screen Not Detected Microbiology Microbiology Results: Microbiology 07/31/24 11:37 Ascites Fluid Gram Stain - Final 07/31/24 11:37 Ascites Fluid Anaerobic Culture - Preliminary No growth to date. 07/31/24 11:37 Ascites Fluid Body Fluid Culture - Final No growth after 2 days 07/30/24 11:07 Blood - Venous Blood Culture - Final Coag negative Staphylococcus 07/30/24 10:45 Blood - Venous Blood Culture - Preliminary No growth after 48 hours. Progress Note: A&P Assessment and plan (1) Pulmonary edema: Status: Acute (2) Hepatorenal syndrome: Status: Acute (3) Cirrhosis: Status: Acute (4) Acute hypoxic respiratory failure: Status: Acute (5) Hepatic failure: Status: Acute (6) Alcohol use disorder, severe, dependence: Status: Acute (7) Coagulopathy: Status: Acute (8) Acute renal failure: Status: Acute Plan Assessment: 39-year-old gentleman with underlying alcohol abuse admitted with acute blood loss anemia secondary to recent GI bleed, acute liver failure, and alcohol withdrawal Plan: Neuro: Alcohol withdrawal, continue phenobarbital protocol. Cardiac: No acute issues. Pulmonary: Remains intubated after the end of endoscopy secondary to acute hypoxia, continue to titrate off ventilatory support as tolerated. Renal: Hepatorenal syndrome, continue with albumin support. Continue to monitor renal indices and urine output. Endo: No acute issues. GI: GI bleed, status post EGD, no active bleeding noted, underlying nonbleeding esophageal varices and esophageal ulcer. Gastroenterology service care appreciated. Alcoholic cirrhosis with acute liver failure, no systemic glucocorticoids secondary to recent GI bleed. Ascites negative for SBP. ID: 1/2 blood cultures with Staphylococcus, continue empiric ceftriaxone. Heme/Onc: Acute blood loss anemia secondary to GI bleed and coagulopathy secondary to liver cirrhosis, status post 4 units of PRBC, 3 FFP, and 1 platelet. Stabilizing. Continue to monitor blood counts and coagulation studies. Psych: No acute issues. Miscellaneous: No acute issues. Prophylaxis: Pneumatic compression, ppi Diet: Tube feeds Critical care time spent: 60 minutes Quality Stroke Does the patient have a stroke diagnosis?: No VTE Prior VTE?: No VTE Risk Level:: Medical - moderate - high VTE Device Contraindication: N/A - Device Ordered VTE Drug Contraindication: Treatment Not Indicated
[2024-08-02] MEDS: Norepinephrine Bitartrate/D5W 8 MG/250 ML PLAST..BAG 10.64 MG IVCONT (15:02)
[2024-08-03] VITALS (39 sets, daily range): BP systolic 100–125; BP diastolic 51–68; PULSE 78–92; RESP 17–30; TEMP 34.2–37.2; O2SAT 87–95; BMI 30.5
[2024-08-03] MEDS: propofoL 1,000 MG/100 ML VIAL 28.38 MG IVCONT ×8 (01:10→23:35)
[2024-08-03] MEDS: fentaNYL citrate/PF 100 MCG/2 ML VIAL IVPUSH (01:45)
[2024-08-03 05:31] LABS: VBG Base Excess -2.3 mmol/L; VBG HCO3 18 mmol/L (22-26); VBG pCO2 22 mmHg; VBG pH 7.53 (7.32-7.43); VBG pO2 76 mmHg
[2024-08-03 05:46] LABS: Prothrombin Time 23.2 SEC (10.9-12.4)
[2024-08-03 06:05] LABS: Venous Blood Gas Refer to POC result
[2024-08-03 06:15] LABS: Alanine Aminotransferase 12 U/L (0-40); Albumin Level 3.7 g/dL (3.5-5.0); Alkaline Phosphatase 140 U/L (39-117); Anion Gap 18 (12-20); Aspartate Amino Transferase 64 U/L (5-37); Bilirubin Total 9.5 mg/dL (0.0-1.0); Blood Urea Nitrogen 40 mg/dL (9-16); Calcium 9.2 mg/dL (8.4-10.2); Carbon Dioxide 15 mmol/L (22-29); Chloride 104 mmol/L (96-108); Creatinine Clr Calc Pharmacy 80.6; Estimated Glomerular Filt Rate 53; Glucose Random 118 mg/dL (60-115); Magnesium 2.2 mg/dL (1.6-2.6); Phosphorus 4.1 mg/dL (2.7-4.5); Potassium 3.4 mmol/L (3.3-5.1); Sodium 134 mmol/L (135-145); Total Protein 6.8 g/dL (6.5-8.0)
[2024-08-03 07:59] LABS: Basophils Absolute Auto 0.2 X10*3/uL (0.0-0.2); Basophils Percent Auto 0.8 % (0-2); Eosinophils Absolute Auto 0.5 X10*3/uL (0.0-0.4); Eosinophils Percent Auto 2.6 % (0-4); Hematocrit 23.8 % (42.0-52.0); Imm Gran Abs Auto 0.24 X10*3/uL (0.00-0.03); Imm Gran Pct Auto 1.3 % (0.0-0.4); Lymphocytes Absolute Auto 1.6 X10*3/uL (1.2-4.9); Lymphocytes Percent Auto 8.8 % (20-40); MANUAL DIFF FLAG SCAN; Mean Corpuscular HGB Conc 33.6 g/dl (31.0-36.0); Mean Corpuscular Hemoglobin 31.6 pg (27.0-33.0); Mean Corpuscular Volume 94.1 fL (80.0-98.0); Mean Platelet Volume 12.1 fL (9.4-12.4); Monocytes Absolute Auto 1.8 X10*3/uL (0.1-1.2); Monocytes Percent Auto 9.7 % (2-11); Neutrophils Absolute Auto 14.1 x10*3/uL (2.0-8.3); Neutrophils Percent Auto 76.8 % (45-73); PLT CLUMP 1; Red Blood Count 2.53 X10*6/uL (4.60-5.80); Red Cell Distribution Width 17.2 % (11.0-16.0); SCAN SMEAR FLAG 1
[2024-08-03 08:00] LABS: White Blood Count 18.4 X10*3/uL (4.8-10.8)
[2024-08-03] MEDS: Chlorhexidine Gluc Oral Rinse 15 ML MOUTHWASH BUCCAL ×3 (08:07→20:33)
[2024-08-03] MEDS: Thiamine HCL 100 MG in 0.9 % Sodium Chloride 100 ML 202 MG IV ×2 (08:07→20:29)
[2024-08-03] MEDS: 0.9 % Sodium Chloride Flush 3 ML SYRINGE IVFLUSH ×3 (08:07→20:33)
[2024-08-03] MEDS: Potassium Chloride/H20 10 MEQ/100 ML PIGGYBACK 100 MEQ IV ×4 (08:18→22:17)
[2024-08-03 08:40] LABS: Platelet Count 133 X10*3/uL (160-400); SLIDE REVIEW VERIFIED
[2024-08-03] MEDS: cefTRIAXone sodium 1 GM in 0.9 % Sodium Chloride 50 ML IV (10:10)
[2024-08-03] MEDS: Folic Acid 1 MG in 0.9 % Sodium Chloride 50 ML 100.4 MG IV (10:16)
[2024-08-03] MEDS: Furosemide 200 MG in 0.9 % Sodium Chloride 80 ML IVCONT (10:23)
[2024-08-03] MEDS: Norepinephrine Bitartrate/D5W 8 MG/250 ML PLAST..BAG 8.87 MG IVCONT (11:22)
--- NOTE | 2024-08-03 12:14 | PM.CCPN ---
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 On ER evaluation patient in acute liver failure with elevated bilirubin, INR, transaminases, also acute blood loss anemia with initial hemoglobin of 5.6, started on IV fluid and blood product support, also phenobarbital protocol, IV PPI, IV octreotide, empiric ceftriaxone, and admitted to the intensive care unit. Status post EGD 07/31/2024 with no active bleeding noted, but underlying nonbleeding varices and esophageal ulcer, remained intubated at the end of the case and transferred back to the intensive care unit with high FiO2 support requirements. No events overnight. Critical Care Time (minutes): 60 Physical Exam Vital Signs: Vital Signs: Last Vital Signs Temp 96.6 F L 08/03/24 11:00 Pulse 81 08/03/24 11:22 Resp 21 H 08/03/24 11:00 BP 110/57 L 08/03/24 11:22 Pulse Ox 89 L 08/03/24 11:00 O2 Del Method Mechanical Ventil ation 08/03/24 11:00 O2 Flow Rate 3 07/31/24 11:00 FiO2 80 08/03/24 11:52 BMI result Body Mass Index 30.5 Const: General: no acute distress and other (Jaundiced, sedated on the vent) Nutritional Appearance: Edematous Eyes: Sclerae: scleral abnormal (Icteric) EOM: EOMs intact bilaterally Neck: Neck: Yes no lymphadenopathy, Yes trachea midline and Yes supple Resp: Auscultation: crackles bilateral Cardio: Rate: regular rate Rhythm: regular rhythm Heart sounds: no gallops, no murmurs and no rubs GI: Palpation (GI): Soft to palpation and Other GI palpation findings present ( Nontender) Auscultation: normal bowel sounds Extrem: General: No clubbing, No cyanosis and Yes edema (3+ bilateral) Objective Data Labs 08/03/24 07:48 08/03/24 05:27 Labs: Laboratory Results - last 24 hr 08/03/24 08/03/24 08/03/24 05:21 05:27 07:48 WBC 18.4 H RBC 2.53 L Hgb 8.0 L Hct 23.8 L MCV 94.1 MCH 31.6 MCHC 33.6 RDW 17.2 H Plt Count 133 L MPV 12.1 Immature Gran % (Auto) 1.3 H Neut % (Auto) 76.8 H Lymph % (Auto) 8.8 L [place] % (Auto) 9.7 Eos % (Auto) 2.6 Baso % (Auto) 0.8 Lymph # (Auto) 1.6 [place] # (Auto) 1.8 H Eos # (Auto) 0.5 H Baso # (Auto) 0.2 Abs Immat Gran (auto) 0.24 H Absolute Neuts (auto) 14.1 H Absolute Nucleated RBC 0.000 Nucleated RBC % (auto) 0.0 Smear Tech's Comments VERIFIED PT 23.2 H D INR 2.0 H VBG pH 7.53 H VBG pCO2 22 VBG pO2 76 VBG HCO3 18 L VBG O2 Saturation 96.0 VBG Base Excess -2.3 Sodium 134 L Potassium 3.4 D Chloride 104 Carbon Dioxide 15 L Anion Gap 18 BUN 40 H Creatinine 1.49 H Estim Creat Clear Calc 80.6 Estimated GFR 53 Random Glucose 118 H Calcium 9.2 Phosphorus 4.1 Magnesium 2.2 Total Bilirubin 9.5 H AST 64 H ALT 12 Alkaline Phosphatase 140 H Total Protein 6.8 Albumin 3.7 Microbiology Microbiology Results: Microbiology 07/31/24 11:37 Ascites Fluid Gram Stain - Final 07/31/24 11:37 Ascites Fluid Anaerobic Culture - Preliminary No growth to date. 07/31/24 11:37 Ascites Fluid Body Fluid Culture - Final No growth after 2 days 07/30/24 11:07 Blood - Venous Blood Culture - Final Coag negative Staphylococcus 07/30/24 10:45 Blood - Venous Blood Culture - Preliminary No growth after 48 hours. Progress Note: A&P Assessment and plan (1) Acute renal failure: Status: Acute (2) Pulmonary edema: Status: Acute (3) Hepatorenal syndrome: Status: Acute (4) Cirrhosis: Status: Acute (5) Acute hypoxic respiratory failure: Status: Acute (6) Alcohol use disorder, severe, dependence: Status: Acute (7) Hepatic failure: Status: Acute Plan Assessment: 39-year-old gentleman with underlying alcohol abuse admitted with acute blood loss anemia secondary to recent GI bleed, acute liver failure, and alcohol withdrawal Plan: Neuro: Alcohol withdrawal, resolved. Toxic encephalopathy secondary to hyperammonemia, started on lactulose. Cardiac: No acute issues. Pulmonary: Remains intubated after the end of endoscopy secondary to acute hypoxia, continue to titrate off ventilatory support as tolerated. Renal: Hepatorenal syndrome, continue with albumin support. Continue to monitor renal indices and urine output. Diuretic drip. Endo: No acute issues. GI: GI bleed, status post EGD, no active bleeding noted, underlying nonbleeding esophageal varices and esophageal ulcer. Gastroenterology service care appreciated. Alcoholic cirrhosis with acute liver failure, no systemic glucocorticoids secondary to recent GI bleed. Ascites negative for SBP. ID: 1/2 blood cultures with Staphylococcus, continue empiric ceftriaxone. Heme/Onc: Acute blood loss anemia secondary to GI bleed and coagulopathy secondary to liver cirrhosis, status post 4 units of PRBC, 3 FFP, and 1 platelet. Stabilized. Continue to monitor blood counts and coagulation studies. Psych: No acute issues. Miscellaneous: No acute issues. Prophylaxis: Pneumatic compression, ppi Diet: Tube feeds Critical care time spent: 60 minutes Quality Stroke Does the patient have a stroke diagnosis?: No VTE Prior VTE?: No VTE Risk Level:: Medical - moderate - high VTE Device Contraindication: N/A - Device Ordered VTE Drug Contraindication: Treatment Not Indicated
[2024-08-03] MEDS: Chlorothiazide Sodium 500 MG VIAL IVPUSH (19:26)
[2024-08-03 20:14] LABS: Basophils Absolute Auto 0.2 X10*3/uL (0.0-0.2); Eosinophils Absolute Auto 0.4 X10*3/uL (0.0-0.4); Eosinophils Percent Auto 2.2 % (0-4); Hematocrit 23.6 % (42.0-52.0); Hemoglobin 8.1 g/dl (14.0-18.0); Imm Gran Abs Auto 0.12 X10*3/uL (0.00-0.03); Imm Gran Pct Auto 0.6 % (0.0-0.4); Lymphocytes Absolute Auto 1.3 X10*3/uL (1.2-4.9); Lymphocytes Percent Auto 6.6 % (20-40); MANUAL DIFF FLAG SCAN; Mean Corpuscular HGB Conc 34.3 g/dl (31.0-36.0); Mean Corpuscular Hemoglobin 32.1 pg (27.0-33.0); Mean Corpuscular Volume 93.7 fL (80.0-98.0); Mean Platelet Volume 11.7 fL (9.4-12.4); Monocytes Absolute Auto 1.9 X10*3/uL (0.1-1.2); Monocytes Percent Auto 9.4 % (2-11); Neutrophils Absolute Auto 15.8 x10*3/uL (2.0-8.3); Neutrophils Percent Auto 80.2 % (45-73); Platelet Count 152 X10*3/uL (160-400); Red Blood Count 2.52 X10*6/uL (4.60-5.80); Red Cell Distribution Width 17.1 % (11.0-16.0); SCAN SMEAR FLAG 1; White Blood Count 19.8 X10*3/uL (4.8-10.8)
[2024-08-03 20:32] LABS: Albumin Level 3.5 g/dL (3.5-5.0); Anion Gap 17 (12-20); Blood Urea Nitrogen 38 mg/dL (9-16); Calcium 8.8 mg/dL (8.4-10.2); Carbon Dioxide 18 mmol/L (22-29); Chloride 104 mmol/L (96-108); Creatinine Clr Calc Pharmacy 81.7; Estimated Glomerular Filt Rate 54; Glucose Random 112 mg/dL (60-115); Magnesium 2.2 mg/dL (1.6-2.6); Potassium 3.5 mmol/L (3.3-5.1); Sodium 135 mmol/L (135-145)
[2024-08-03 20:33] LABS: SLIDE REVIEW VERIFIED
[2024-08-03] MEDS: Lactulose 20 GM/30 ML SOLUTION 30 GM PO (20:34)
[2024-08-03] MEDS: Potassium Chloride Packet 20 MEQ PACKET 40 MEQ OG-TUBE (21:09)
[2024-08-04] VITALS (39 sets, daily range): BP systolic 99–127; BP diastolic 47–65; PULSE 77–92; RESP 15–34; TEMP 34.8–37; O2SAT 89–96; BMI 30.8
[2024-08-04] MEDS: propofoL 1,000 MG/100 ML VIAL 28.38 MG IVCONT ×5 (02:41→15:51)
[2024-08-04] MEDS: Furosemide 200 MG in 0.9 % Sodium Chloride 80 ML IVCONT (04:26)
[2024-08-04] MEDS: fentaNYL citrate/PF 100 MCG/2 ML VIAL IVPUSH (04:35)
[2024-08-04 05:21] LABS: VBG Base Excess -3.1 mmol/L; VBG HCO3 19 mmol/L (22-26); VBG pCO2 26 mmHg; VBG pH 7.46 (7.32-7.43); VBG pO2 64 mmHg
[2024-08-04 05:46] LABS: Basophils Absolute Auto 0.2 X10*3/uL (0.0-0.2); Basophils Percent Auto 0.7 % (0-2); Eosinophils Absolute Auto 0.3 X10*3/uL (0.0-0.4); Eosinophils Percent Auto 1.4 % (0-4); Hematocrit 23.6 % (42.0-52.0); Hemoglobin 8.1 g/dl (14.0-18.0); Imm Gran Abs Auto 0.21 X10*3/uL (0.00-0.03); Imm Gran Pct Auto 0.9 % (0.0-0.4); Lymphocytes Absolute Auto 1.4 X10*3/uL (1.2-4.9); Lymphocytes Percent Auto 5.8 % (20-40); MANUAL DIFF FLAG SCAN; Mean Corpuscular HGB Conc 34.3 g/dl (31.0-36.0); Mean Corpuscular Hemoglobin 32.5 pg (27.0-33.0); Mean Corpuscular Volume 94.8 fL (80.0-98.0); Monocytes Absolute Auto 1.7 X10*3/uL (0.1-1.2); Monocytes Percent Auto 7.2 % (2-11); Neutrophils Absolute Auto 19.5 x10*3/uL (2.0-8.3); Platelet Count 156 X10*3/uL (160-400); Red Blood Count 2.49 X10*6/uL (4.60-5.80); Red Cell Distribution Width 17.2 % (11.0-16.0); SCAN SMEAR FLAG 1; White Blood Count 23.2 X10*3/uL (4.8-10.8)
--- NOTE | 2024-08-04 05:50 | PC.NURSE ---
CARE ASSUMED 7PM..REMAINS INTUBATED/VCV VENT SUPPORT...SAO2 90-92% WITH FIO2 100% AND PEEP 8CM...SEDATED WITH PROPOFOL...ASSISTS VENT IN AC MODE..WEAKLY MOVES ARMS BUT NOT TO COMMAND..(+) COUGH/WEAK GAG...SCLERA JAUNDICED AND (+) SCLERAL EDEMA...ABDOMEN DISTENDED AND SOFT..PARACENTESIS 07/31/24 REMOVED 1100ml PER REPORT...ANASARCA PRESENT...PITTING EDEMA FROM THIGHS TO FEET...+4 EDEMA TO BOTH FEET..CELLULITIS AREA LEFT LEG PREVIOUSLY DEMARCATED...PER REPORT OG-TUBE PREVIOUSLY PLACED BY MD..+ AUSCULTATION AND ASPIRATION...1ST DOSE LACTULOSE GIVEN PER DEC..REPEAT AMMONIA LEVEL DRAWN THIS AM...TRICKLE TUBE FEEDS NEPRO 20 CC/HR STARTED 10PM AFTER OBTAINED BY CLINICAL SERVICES ASSISTANT..NO STOOL OVERNIGHT BUT (+) FLATUS....LASIX DRIP 5 MG/HR..MORAN DRAINING LARGE AMOUNTS [place]-ORANGE URINE...KCL IV AND OG-TUBE GIVEN PER DEC...FENTANYL 100MCG IV X1 GIVEN FOR RR 30-32 WITH DECREASED RR TO 24-28 PER ICU 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
[2024-08-04 06:00] LABS: Venous Blood Gas Refer to POC result
[2024-08-04 06:02] LABS: Ammonia 124 umol/L (13-55)
[2024-08-04 06:10] LABS: Alanine Aminotransferase 12 U/L (0-40); Albumin Level 3.4 g/dL (3.5-5.0); Alkaline Phosphatase 145 U/L (39-117); Anion Gap 15 (12-20); Aspartate Amino Transferase 58 U/L (5-37); Bilirubin Total 9.6 mg/dL (0.0-1.0); Blood Urea Nitrogen 40 mg/dL (9-16); Calcium 8.9 mg/dL (8.4-10.2); Carbon Dioxide 19 mmol/L (22-29); Chloride 105 mmol/L (96-108); Creatinine Clr Calc Pharmacy 83.8; Estimated Glomerular Filt Rate 55; Glucose Random 118 mg/dL (60-115); Magnesium 2.2 mg/dL (1.6-2.6); Phosphorus 4.1 mg/dL (2.7-4.5); Potassium 2.8 mmol/L (3.3-5.1); Sodium 136 mmol/L (135-145); Total Protein 6.6 g/dL (6.5-8.0)
[2024-08-04 06:19] LABS: SLIDE REVIEW VERIFIED
[2024-08-04] MEDS: Potassium Chloride/H20 10 MEQ/100 ML PIGGYBACK 100 MEQ IV ×4 (06:28→10:18)
[2024-08-04] MEDS: Potassium Chloride Packet 20 MEQ PACKET 60 MEQ PO (06:28)
[2024-08-04] MEDS: Thiamine HCL 100 MG in 0.9 % Sodium Chloride 100 ML 202 MG IV ×2 (08:16→20:11)
[2024-08-04] MEDS: Albumin Human 25 % 100 ML IV ×3 (08:16→19:56)
[2024-08-04] MEDS: 0.9 % Sodium Chloride Flush 3 ML SYRINGE IVFLUSH ×3 (08:20→20:35)
[2024-08-04] MEDS: Chlorhexidine Gluc Oral Rinse 15 ML MOUTHWASH BUCCAL ×3 (08:20→20:11)
[2024-08-04] MEDS: Lactulose 20 GM/30 ML SOLUTION 30 GM PO ×4 (08:20→21:57)
[2024-08-04] MEDS: Folic Acid 1 MG in 0.9 % Sodium Chloride 50 ML 100.4 MG IV (08:50)
--- NOTE | 2024-08-04 10:05 | MHC.CLN ---
F/U PT REMAINS INTUBATED AND SEDATED DISCUSSED AT ROUNDS WITH DIET RX: TF NEPRO AT 20ML/HR -TOLERATING WITH LOW RESIDUALS PER NSG RECOMMEND NEPRO AT MAX GOAL RATE 30ML/HR TO PROVIDE 1296KCALS (2045KCALS WITH SEDATION; 23.8KCALS/KG), 58G PROTEIN (.7G/KG), 942ML FREE WATER FROM FORMULA MONITOR TOLERANCE AND LYTES
[2024-08-04] MEDS: Norepinephrine Bitartrate/D5W 8 MG/250 ML PLAST..BAG 8.87 MG IVCONT (10:19)
[2024-08-04] MEDS: cefTRIAXone sodium 1 GM in 0.9 % Sodium Chloride 50 ML IV (11:07)
[2024-08-04] MEDS: Lactulose 320 GM/480 ML SOLUTION 200 GM PR (11:30)
--- NOTE | 2024-08-04 12:46 | P.PNCC_ITS ---
Subjective Subjective Date of Service: 08/04/24 Critical Care Time (minutes): 40 Comment: Continues to be on ventilator support, needing significant ventilator support at 100% this morning Did not have any bowel movements, ammonia up to 120 On propofol for sedation Continues to have melena but did not require further transfusions Physical Exam 2 Vital Signs: Vital Signs: Last Vital Signs Temp 97.2 F 08/04/24 12:00 Pulse 79 08/04/24 12:00 Resp 27 H 08/04/24 12:00 BP 106/53 L 08/04/24 12:00 Pulse Ox 90 L 08/04/24 12:00 O2 Del Method Mechanical Ventil ation 08/04/24 12:00 O2 Flow Rate 80 08/03/24 18:00 FiO2 100 08/04/24 12:00 BMI result Body Mass Index 30.8 General: acute distress, ill appearing and tired appearing Nutritional Appearance: well nourished and overweight Eyes: appearance normal, scleral icterus present Neck: No lymphadenopathy, no thyromegaly Resp: bilateral air entry equal, bilateral significant crackles heard Cardio: Regular rate, regular rhythm; Heart sounds: S1 normal heart sound present and S2 normal heart sound present GI: soft, nontender, no guarding, no hepatosplenomegaly : bladder normal to inspection, bladder normal to palpation, no renal angle tenderness Skin: no rashes or lesions noted and elasticity normal Neuro: No focal deficits, sedated with propofol Objective Data Labs 08/04/24 05:15 08/04/24 05:15 Labs: Laboratory Results - last 24 hr 08/03/24 08/04/24 08/04/24 19:52 05:12 05:15 WBC 19.8 H 23.2 H RBC 2.52 L 2.49 L Hgb 8.1 L 8.1 L Hct 23.6 L 23.6 L MCV 93.7 94.8 MCH 32.1 32.5 MCHC 34.3 34.3 RDW 17.1 H 17.2 H Plt Count 152 L 156 L MPV 11.7 12.0 Immature Gran % (Auto) 0.6 H 0.9 H Neut % (Auto) 80.2 H 84.0 H Lymph % (Auto) 6.6 L 5.8 L [place] % (Auto) 9.4 7.2 Eos % (Auto) 2.2 1.4 Baso % (Auto) 1.0 0.7 Lymph # (Auto) 1.3 1.4 [place] # (Auto) 1.9 H 1.7 H Eos # (Auto) 0.4 0.3 Baso # (Auto) 0.2 0.2 Abs Immat Gran (auto) 0.12 H 0.21 H Absolute Neuts (auto) 15.8 H 19.5 H Absolute Nucleated RBC 0.000 0.000 Nucleated RBC % (auto) 0.0 0.0 Smear Tech's Comments VERIFIED VERIFIED VBG pH 7.46 H VBG pCO2 26 VBG pO2 64 VBG HCO3 19 L VBG O2 Saturation 90.0 VBG Base Excess -3.1 Sodium 135 136 Potassium 3.5 2.8 L* Chloride 104 105 Carbon Dioxide 18 L 19 L Anion Gap 17 15 BUN 38 H 40 H Creatinine 1.47 H 1.44 H Estim Creat Clear Calc 81.7 83.8 Estimated GFR 54 55 Random Glucose 112 118 H Calcium 8.8 8.9 Phosphorus 4.0 4.1 Magnesium 2.2 2.2 Total Bilirubin 9.6 H AST 58 H ALT 12 Alkaline Phosphatase 145 H Ammonia 124 H Total Protein 6.6 Albumin 3.5 3.4 L Microbiology Microbiology Results: Microbiology 07/31/24 11:37 Ascites Fluid Gram Stain - Final 07/31/24 11:37 Ascites Fluid Anaerobic Culture - Preliminary No growth to date. 07/31/24 11:37 Ascites Fluid Body Fluid Culture - Final No growth after 2 days 07/30/24 11:07 Blood - Venous Blood Culture - Final Coag negative Staphylococcus 07/30/24 10:45 Blood - Venous Blood Culture - Preliminary No growth after 48 hours. 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 On ER evaluation patient in acute liver failure with elevated bilirubin, INR, transaminases, also acute blood loss anemia with initial hemoglobin of 5.6, started on IV fluid and blood product support, also phenobarbital protocol, IV PPI, IV octreotide, empiric ceftriaxone, and admitted to the intensive care unit. Status post EGD 07/31/2024 with no active bleeding noted, but underlying nonbleeding varices and esophageal ulcer, remained intubated at the end of the procedure and transferred back to the intensive care unit with high FiO2 support requirements. Neuro: Acute encephalopathy possibly due to metabolic encephalopathy and hepatic encephalopathy Ammonia increased up to 120 this morning. We will do lactulose enema and increase the p.o. lactulose to q.4 hours On propofol for sedation, as needed fentanyl for analgesia Close neurological status monitoring in the ICU every hour Cardiac: Blood pressure is on the lower side due to cirrhotic physiology and positive pressure ventilation Respiratory: Acute hypoxemic respiratory failure due to possibly aspiration pneumonia versus TRALI as required multiple blood transfusions. We will send sputum culture Currently on ventilator support On PRVC mode FiO2[100%], PEEP 8, TV 500, RR 20; given very high vent settings different levels of PEEP and tidal volumes were tried patient seems to do better on PEEP of 14 and tidal volume of 400. Peak pressures and plateau pressures are under the curve Ventilator management bundle with head end elevation, aspiration precaution, chlorhexidine mouthwash, daily awakening trials, daily spontaneous breathing trials GI: Decompensated liver cirrhosis: Has decompensated liver cirrhosis with significant ascites, hepatic encephalopathy, variceal phenomenon His last drink was about 2 weeks prior to admission to the hospital, has private insurance, father is his next of kin and support. Once his ventilator support improves we will try calling transplant center to see if they are willing to consider him as a transplant candidate. Increase lactulose q.4 hours lactulose enema for the management of hepatic encephalopathy No evidence of SBP on paracentesis Renal: Acute kidney injury possibly secondary to ATN from sudden drop in hemoglobin. Baseline creatinine normal, current creatinine 1.44 We will closely monitor I's and O's Avoid nephrotoxic medications Heme: Acute blood loss anemia: Secondary to GI bleed Upper GI endoscopy showed nonbleeding varices and an esophageal ulcer Given his melena we will repeat CBC if there is significant drop we will reconsult Gastroenterology Received 6 units of PRBC, 3 units of FFP and 1 unit of platelets so far Endocrine: Blood sugars under control Sliding scale insulin as needed Infectious disease: Pancultures remained negative so far Given his significant requirement on the ventilator support we will escalate the antibiotics from ceftriaxone to cefepime We will send sputum cultures We will send MRSA nares, if positive we will add MRSA coverage Musculoskeletal: Decubitus ulcer prevention protocol Lines: Prophylaxis: SCD, pantoprazole Patient has multiple organ failures including acute encephalopathy, acute respiratory failure on ventilator support, decompensated cirrhosis, acute kidney injury. Critical care time spent is about 40 minutes on chart review, review of labs, review of images, ventilator management, sedation management, close hemodynamic monitoring, close monitoring of neurological status at this time is excluding any procedural time Quality Stroke Does the patient have a stroke diagnosis?: No VTE Prior VTE?: No VTE Risk Level:: Medical - moderate - high VTE Device Contraindication: N/A - Device Ordered VTE Drug Contraindication: Treatment Not Indicated
[2024-08-04] MEDS: cefEPime HCl 2 GM in 0.9 % Sodium Chloride 50 ML IV ×2 (13:33→20:22)
--- NOTE | 2024-08-04 13:34 | MHC.CM.PN ---
Pt remains on ventilatory support in ICU: FiO2 needs increased, NH3 level 120 - on Lactulose: cultures to be obtained. No plans for extubation
[2024-08-04 14:28] LABS: Basophils Absolute Auto 0.2 X10*3/uL (0.0-0.2); Basophils Percent Auto 0.6 % (0-2); Eosinophils Absolute Auto 0.3 X10*3/uL (0.0-0.4); Eosinophils Percent Auto 1.3 % (0-4); Hematocrit 22.6 % (42.0-52.0); Hemoglobin 7.6 g/dl (14.0-18.0); Imm Gran Abs Auto 0.33 X10*3/uL (0.00-0.03); Imm Gran Pct Auto 1.3 % (0.0-0.4); Lymphocytes Absolute Auto 1.3 X10*3/uL (1.2-4.9); Lymphocytes Percent Auto 5.3 % (20-40); MANUAL DIFF FLAG SCAN; Mean Corpuscular HGB Conc 33.6 g/dl (31.0-36.0); Mean Corpuscular Hemoglobin 32.1 pg (27.0-33.0); Mean Corpuscular Volume 95.4 fL (80.0-98.0); Mean Platelet Volume 11.8 fL (9.4-12.4); Monocytes Absolute Auto 1.5 X10*3/uL (0.1-1.2); Neutrophils Absolute Auto 21.8 x10*3/uL (2.0-8.3); Neutrophils Percent Auto 85.5 % (45-73); Platelet Count 151 X10*3/uL (160-400); Red Blood Count 2.37 X10*6/uL (4.60-5.80); Red Cell Distribution Width 17.2 % (11.0-16.0); SCAN SMEAR FLAG 1; White Blood Count 25.5 X10*3/uL (4.8-10.8)
[2024-08-04 14:47] LABS: SLIDE REVIEW VERIFIED
[2024-08-04 15:24] LABS: Total Protein Peritoneal Fluid 0.7
[2024-08-04 15:57] LABS: MRSA Nasal PCR NEGATIVE (Negative); SA Nasal PCR POSITIVE (Negative)
[2024-08-04] MEDS: propofoL 1,000 MG/100 ML VIAL 22.7 MG IVCONT ×2 (19:02→22:35)
[2024-08-04 21:14] LABS: Basophils Absolute Auto 0.2 X10*3/uL (0.0-0.2); Basophils Percent Auto 0.7 % (0-2); Eosinophils Absolute Auto 0.5 X10*3/uL (0.0-0.4); Hematocrit 22.5 % (42.0-52.0); Hemoglobin 7.7 g/dl (14.0-18.0); Imm Gran Abs Auto 0.19 X10*3/uL (0.00-0.03); Imm Gran Pct Auto 0.7 % (0.0-0.4); Lymphocytes Absolute Auto 1.6 X10*3/uL (1.2-4.9); Lymphocytes Percent Auto 6.2 % (20-40); MANUAL DIFF FLAG SCAN; Mean Corpuscular HGB Conc 34.2 g/dl (31.0-36.0); Mean Corpuscular Hemoglobin 32.2 pg (27.0-33.0); Mean Corpuscular Volume 94.1 fL (80.0-98.0); Mean Platelet Volume 11.9 fL (9.4-12.4); Monocytes Absolute Auto 1.6 X10*3/uL (0.1-1.2); Monocytes Percent Auto 6.1 % (2-11); NRBC Pct Auto 0.1 /100WBC (0.0-0.2); Neutrophils Absolute Auto 21.9 x10*3/uL (2.0-8.3); Neutrophils Percent Auto 84.3 % (45-73); Platelet Count 152 X10*3/uL (160-400); Red Blood Count 2.39 X10*6/uL (4.60-5.80); Red Cell Distribution Width 16.9 % (11.0-16.0); SCAN SMEAR FLAG 1; White Blood Count 25.9 X10*3/uL (4.8-10.8)
[2024-08-04 21:30] LABS: Alanine Aminotransferase 13 U/L (0-40); Albumin Level 3.8 g/dL (3.5-5.0); Alkaline Phosphatase 129 U/L (39-117); Anion Gap 20 (12-20); Aspartate Amino Transferase 53 U/L (5-37); Bilirubin Total 9.3 mg/dL (0.0-1.0); Blood Urea Nitrogen 45 mg/dL (9-16); Calcium 9.7 mg/dL (8.4-10.2); Carbon Dioxide 15 mmol/L (22-29); Chloride 106 mmol/L (96-108); Creatinine Clr Calc Pharmacy 75.4; Estimated Glomerular Filt Rate 49; Glucose Random 119 mg/dL (60-115); Potassium 3.3 mmol/L (3.3-5.1); Sodium 138 mmol/L (135-145); Total Protein 7.1 g/dL (6.5-8.0)
[2024-08-04] MEDS: Albumin Human 25 % 100 ML 133.33 ML IV ×2 (22:46→23:39)
[2024-08-05] VITALS (44 sets, daily range): BP systolic 108–130; BP diastolic 41–68; PULSE 90–108; RESP 20–35; TEMP 35–37.5; O2SAT 89–96; BMI 31.8
[2024-08-05] MEDS: Chlorothiazide Sodium 500 MG VIAL IVPUSH (00:42)
[2024-08-05] MEDS: Norepinephrine Bitartrate/D5W 8 MG/250 ML PLAST..BAG 12.42 MG IVCONT (00:48)
[2024-08-05] MEDS: Albumin Human 25 % 100 ML IV (01:04)
[2024-08-05] MEDS: Lactulose 20 GM/30 ML SOLUTION 30 GM PO ×5 (01:05→21:17)
[2024-08-05] MEDS: propofoL 1,000 MG/100 ML VIAL 22.7 MG IVCONT ×5 (02:43→22:27)
[2024-08-05] MEDS: Furosemide 200 MG in 0.9 % Sodium Chloride 80 ML IVCONT ×2 (03:58→21:24)
[2024-08-05 05:23] LABS: VBG Base Excess -5.9 mmol/L; VBG HCO3 18 mmol/L (22-26); VBG pCO2 31 mmHg; VBG pH 7.37 (7.32-7.43); VBG pO2 70 mmHg
[2024-08-05 05:27] LABS: Basophils Absolute Auto 0.2 X10*3/uL (0.0-0.2); Basophils Percent Auto 0.6 % (0-2); Eosinophils Absolute Auto 0.4 X10*3/uL (0.0-0.4); Eosinophils Percent Auto 1.6 % (0-4); Hematocrit 22.7 % (42.0-52.0); Hemoglobin 7.4 g/dl (14.0-18.0); Imm Gran Abs Auto 0.23 X10*3/uL (0.00-0.03); Imm Gran Pct Auto 0.9 % (0.0-0.4); Lymphocytes Absolute Auto 1.5 X10*3/uL (1.2-4.9); Lymphocytes Percent Auto 6.1 % (20-40); MANUAL DIFF FLAG SCAN; Mean Corpuscular HGB Conc 32.6 g/dl (31.0-36.0); Mean Corpuscular Hemoglobin 31.1 pg (27.0-33.0); Mean Corpuscular Volume 95.4 fL (80.0-98.0); Mean Platelet Volume 12.3 fL (9.4-12.4); Monocytes Absolute Auto 1.7 X10*3/uL (0.1-1.2); Monocytes Percent Auto 6.9 % (2-11); Neutrophils Absolute Auto 21.2 x10*3/uL (2.0-8.3); Neutrophils Percent Auto 83.9 % (45-73); Platelet Count 160 X10*3/uL (160-400); Red Blood Count 2.38 X10*6/uL (4.60-5.80); Red Cell Distribution Width 17.1 % (11.0-16.0); SCAN SMEAR FLAG 1; White Blood Count 25.2 X10*3/uL (4.8-10.8)
[2024-08-05 05:47] LABS: SLIDE REVIEW VERIFIED
[2024-08-05] MEDS: cefEPime HCl 2 GM in 0.9 % Sodium Chloride 50 ML IV ×3 (05:54→20:30)
[2024-08-05 06:10] LABS: Alanine Aminotransferase 11 U/L (0-40); Albumin Level 4.4 g/dL (3.5-5.0); Alkaline Phosphatase 127 U/L (39-117); Anion Gap 19 (12-20); Aspartate Amino Transferase 51 U/L (5-37); Blood Urea Nitrogen 48 mg/dL (9-16); Calcium 9.9 mg/dL (8.4-10.2); Carbon Dioxide 19 mmol/L (22-29); Chloride 105 mmol/L (96-108); Creatinine Clr Calc Pharmacy 73.4; Estimated Glomerular Filt Rate 46; Glucose Random 116 mg/dL (60-115); Magnesium 2.3 mg/dL (1.6-2.6); Phosphorus 5.4 mg/dL (2.7-4.5); Potassium 2.8 mmol/L (3.3-5.1); Sodium 140 mmol/L (135-145); Total Protein 7.4 g/dL (6.5-8.0)
[2024-08-05] MEDS: propofoL 1,000 MG/100 ML VIAL 17.03 MG IVCONT (06:11)
[2024-08-05 06:17] LABS: Venous Blood Gas Refer to POC result
[2024-08-05] MEDS: Potassium Chloride Packet 20 MEQ PACKET 40 MEQ PO (06:31)
[2024-08-05] MEDS: 0.9 % Sodium Chloride Flush 3 ML SYRINGE IVFLUSH ×2 (08:20→14:45)
[2024-08-05] MEDS: Thiamine HCL 100 MG in 0.9 % Sodium Chloride 100 ML 202 MG IV (08:20)
[2024-08-05] MEDS: Chlorhexidine Gluc Oral Rinse 15 ML MOUTHWASH BUCCAL ×3 (08:20→22:00)
--- NOTE | 2024-08-05 08:38 | P.PNCC_ITS ---
Subjective Subjective Date of Service: 08/05/24 Critical Care Time (minutes): 35 Comment: Continues to be on ventilator support but improving ventilator settings On Lasix drip for diuresis, net fluid balance even on levophed support for vasopressor support Physical Exam 2 Vital Signs: Vital Signs: Last Vital Signs Temp 96.6 F L 08/05/24 08:00 Pulse 91 08/05/24 08:00 Resp 25 H 08/05/24 08:00 BP 120/55 L 08/05/24 08:00 Pulse Ox 96 08/05/24 08:00 O2 Del Method Mechanical Ventil ation 08/05/24 08:00 O2 Flow Rate 80 08/03/24 18:00 FiO2 75 08/05/24 08:00 BMI result Body Mass Index 31.8 General: acute distress, ill appearing and tired appearing Nutritional Appearance: well nourished and overweight Eyes: Scleral icterus+, anemia+ Neck: No lymphadenopathy, no thyromegaly Resp: bilateral air entry equal, bilateral diffuse crackles heard Cardio: Regular rate, regular rhythm; Heart sounds: S1 normal heart sound present and S2 normal heart sound present GI: soft, nontender, significant abdominal distention present, fluid thrill present, no guarding, no hepatosplenomegaly : bladder normal to inspection, bladder normal to palpation, no renal angle tenderness Skin: no rashes or lesions noted and elasticity normal Neuro: Sedated, no focal deficits Objective Data Labs 08/05/24 05:03 08/05/24 05:03 Labs: Laboratory Results - last 24 hr 07/31/24 08/04/24 08/04/24 11:38 13:47 14:14 WBC 25.5 H RBC 2.37 L Hgb 7.6 L Hct 22.6 L MCV 95.4 MCH 32.1 MCHC 33.6 RDW 17.2 H Plt Count 151 L MPV 11.8 Immature Gran % (Auto) 1.3 H Neut % (Auto) 85.5 H Lymph % (Auto) 5.3 L [place] % (Auto) 6.0 Eos % (Auto) 1.3 Baso % (Auto) 0.6 Lymph # (Auto) 1.3 [place] # (Auto) 1.5 H Eos # (Auto) 0.3 Baso # (Auto) 0.2 Abs Immat Gran (auto) 0.33 H Absolute Neuts (auto) 21.8 H Absolute Nucleated RBC 0.000 Nucleated RBC % (auto) 0.0 Smear Tech's Comments VERIFIED VBG pH VBG pCO2 VBG pO2 VBG HCO3 VBG O2 Saturation VBG Base Excess Sodium Potassium Chloride Carbon Dioxide Anion Gap BUN Creatinine Estim Creat Clear Calc Estimated GFR Random Glucose Calcium Phosphorus Magnesium Total Bilirubin AST ALT Alkaline Phosphatase Total Protein Albumin Peritoneal Tot Protein 0.7 Nasal Screen MRSA (PCR) NEGATIVE Nasal S. aureus Screen POSITIVE A Nasal MRSA/S.aureus Interp SEE NOTE 08/04/24 08/05/24 08/05/24 21:02 05:03 05:12 WBC 25.9 H 25.2 H RBC 2.39 L 2.38 L Hgb 7.7 L 7.4 L Hct 22.5 L 22.7 L MCV 94.1 95.4 MCH 32.2 31.1 MCHC 34.2 32.6 RDW 16.9 H 17.1 H Plt Count 152 L 160 MPV 11.9 12.3 Immature Gran % (Auto) 0.7 H 0.9 H Neut % (Auto) 84.3 H 83.9 H Lymph % (Auto) 6.2 L 6.1 L [place] % (Auto) 6.1 6.9 Eos % (Auto) 2.0 1.6 Baso % (Auto) 0.7 0.6 Lymph # (Auto) 1.6 1.5 [place] # (Auto) 1.6 H 1.7 H Eos # (Auto) 0.5 H 0.4 Baso # (Auto) 0.2 0.2 Abs Immat Gran (auto) 0.19 H 0.23 H Absolute Neuts (auto) 21.9 H 21.2 H Absolute Nucleated RBC 0.020 H 0.000 Nucleated RBC % (auto) 0.1 0.0 Smear Tech's Comments VERIFIED VBG pH 7.37 VBG pCO2 31 VBG pO2 70 VBG HCO3 18 L VBG O2 Saturation 91.0 VBG Base Excess -5.9 Sodium 138 140 Potassium 3.3 2.8 L* Chloride 106 105 Carbon Dioxide 15 L 19 L Anion Gap 20 19 BUN 45 H 48 H Creatinine 1.60 H 1.67 H Estim Creat Clear Calc 75.4 73.4 Estimated GFR 49 46 Random Glucose 119 H 116 H Calcium 9.7 D 9.9 Phosphorus 5.4 H Magnesium 2.3 Total Bilirubin 9.3 H 9.0 H AST 53 H 51 H ALT 13 11 Alkaline Phosphatase 129 H 127 H Total Protein 7.1 7.4 Albumin 3.8 4.4 Peritoneal Tot Protein Nasal Screen MRSA (PCR) Nasal S. aureus Screen Nasal MRSA/S.aureus Interp Microbiology Microbiology Results: Microbiology 08/04/24 10:27 Tracheal Aspirate Gram Stain - Final 08/04/24 10:27 Tracheal Aspirate Sputum Culture - Preliminary Culture in progress. 07/30/24 10:45 Blood - Venous Blood Culture - Final No growth after 5 days. 07/31/24 11:37 Ascites Fluid Gram Stain - Final 07/31/24 11:37 Ascites Fluid Anaerobic Culture - Preliminary No growth to date. 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 On ER evaluation patient in acute liver failure with elevated bilirubin, INR, transaminases, also acute blood loss anemia with initial hemoglobin of 5.6, started on IV fluid and blood product support, also phenobarbital protocol, IV PPI, IV octreotide, empiric ceftriaxone, and admitted to the intensive care unit. Status post EGD 07/31/2024 with no active bleeding noted, but underlying nonbleeding varices and esophageal ulcer, remained intubated at the end of the procedure and transferred back to the intensive care unit with high FiO2 support requirements. Neuro: Acute encephalopathy possibly due to metabolic encephalopathy and hepatic encephalopathy Ammonia 120 yesterday, has p.o. lactulose q.4 hours stool output is about On propofol for sedation, as needed fentanyl for analgesia; continue propofol for RASS of-1 given his high ventilator settings Close neurological status monitoring in the ICU every hour Cardiac: Blood pressure is on the lower side due to cirrhotic physiology and positive pressure ventilation, currently on levophed support titrate to keep MAP above 65mmHg Respiratory: Acute hypoxemic respiratory failure due to possibly aspiration pneumonia versus TRALI as required multiple blood transfusions. Currently on ventilator support On PRVC mode FiO2 75%, PEEP 14, TV 400, RR 20 Peak pressures and plateau pressures are under the curve Ventilator management bundle with head end elevation, aspiration precaution, chlorhexidine mouthwash, daily awakening trials, daily spontaneous breathing trials Plateau pressure is higher due to significant abdominal distention and effusions. We will do a bedside ultrasound to see if there is room for thoracentesis or paracentesis GI: Decompensated liver cirrhosis: Has decompensated liver cirrhosis with significant ascites, hepatic encephalopathy, variceal phenomenon His last drink was about 2 weeks prior to admission to the hospital, has private insurance, father is his next of kin and support. Once his ventilator support improves we will try calling transplant center to see if they are willing to consider him as a transplant candidate. Increase lactulose q.4 hours lactulose enema for the management of hepatic encephalopathy No evidence of SBP on paracentesis tube feeds at 30cc/hr Renal: Acute kidney injury possibly secondary to ATN from sudden drop in hemoglobin. Baseline creatinine normal, creatinine slowly increasing up to 1.64. We will do a bedside ultrasound to look for his volume status. Continue Lasix drip for now. Fluid balance net even yesterday. We will closely monitor I's and O's Avoid nephrotoxic medications Heme: Acute blood loss anemia: Secondary to GI bleed Upper GI endoscopy showed nonbleeding varices and an esophageal ulcer Given his melena we will repeat CBC if there is significant drop we will reconsult Gastroenterology Received 6 units of PRBC, 3 units of FFP and 1 unit of platelets so far Endocrine: Blood sugars under control Sliding scale insulin as needed Infectious disease: Pancultures remained negative so far Continue cefepime for bilateral pneumonia Pending sputum cultures MRSA needs negative Musculoskeletal: Decubitus ulcer prevention protocol Lines: peripheral no [place] Prophylaxis: SCD, pantoprazole Patient has multiple organ failures including acute encephalopathy, acute respiratory failure on ventilator support, decompensated cirrhosis, acute kidney injury. Critical care time spent is about 38 minutes on chart review, review of labs, review of images, ventilator management, ventilator setting changes, sedation management, close hemodynamic monitoring, close monitoring of neurological status at this time is excluding any procedural time Quality Stroke Does the patient have a stroke diagnosis?: No VTE Prior VTE?: No VTE Risk Level:: Medical - moderate - high VTE Device Contraindication: N/A - Device Ordered VTE Drug Contraindication: Treatment Not Indicated
[2024-08-05] MEDS: Folic Acid 1 MG in 0.9 % Sodium Chloride 50 ML 100.4 MG IV (09:23)
[2024-08-05] MEDS: Potassium Chloride/H20 10 MEQ/100 ML PIGGYBACK 100 MEQ IV ×4 (10:11→14:18)
--- NOTE | 2024-08-05 10:11 | MHC.CLN ---
F/U PT REMAINS INTUBATED AND SEDATED DISCUSSED AT ROUNDS WITH DIET RX: TF NEPRO AT MAX GOAL RATE 30ML/HR PROVIDES 1296KCALS (1746KCALS WITH SEDATION; 20KCALS/KG), 58G PROTEIN (.7G/KG), 942ML FREE WATER FROM FORMULA MONITOR TOLERANCE AND LYTES
[2024-08-05] MEDS: Rocuronium Bromide 50 MG/5 ML VIAL 100 MG IVPUSH ×3 (11:36→17:12)
[2024-08-05] MEDS: Norepinephrine Bitartrate/D5W 8 MG/250 ML PLAST..BAG 26.61 MG IVCONT (17:45)
[2024-08-06] VITALS (56 sets, daily range): BP systolic 107–130; BP diastolic 34–52; PULSE 98–111; RESP 20–26; TEMP 34.7–37.6; O2SAT 86–97; BMI 32.3
[2024-08-06] MEDS: 0.9 % Sodium Chloride Flush 3 ML SYRINGE IVFLUSH ×3 (00:23→15:12)
[2024-08-06] MEDS: Norepinephrine Bitartrate/D5W 8 MG/250 ML PLAST..BAG 37.25 MG IVCONT (00:58)
[2024-08-06] MEDS: Lactulose 20 GM/30 ML SOLUTION 30 GM PO ×5 (00:59→18:03)
[2024-08-06] MEDS: Rocuronium Bromide 50 MG/5 ML VIAL IVPUSH (01:11)
[2024-08-06] MEDS: propofoL 1,000 MG/100 ML VIAL 22.7 MG IVCONT ×6 (02:30→22:26)
[2024-08-06] MEDS: Albuterol/Iprat 2.5/0.5MG 3 ML AMPUL.NEB INHALE (05:17)
[2024-08-06] MEDS: Chlorothiazide Sodium 500 MG VIAL IVPUSH (05:20)
[2024-08-06] MEDS: Bumetanide 1 MG/4 ML VIAL IVPUSH ×2 (05:30→06:35)
[2024-08-06] MEDS: cefEPime HCl 2 GM in 0.9 % Sodium Chloride 50 ML IV ×2 (05:31→16:52)
[2024-08-06 05:40] LABS: VBG Base Excess -9.9 mmol/L; VBG HCO3 15 mmol/L (22-26); VBG pCO2 33 mmHg; VBG pH 7.27 (7.32-7.43); VBG pO2 82 mmHg
[2024-08-06 05:41] LABS: Hemoglobin 7.9 g/dl (14.0-18.0); Mean Corpuscular HGB Conc 31.6 g/dl (31.0-36.0); Mean Corpuscular Hemoglobin 31.6 pg (27.0-33.0); Mean Platelet Volume 11.9 fL (9.4-12.4); NRBC Pct Auto 0.2 /100WBC (0.0-0.2); Platelet Count 251 X10*3/uL (160-400); Red Cell Distribution Width 17.5 % (11.0-16.0)
[2024-08-06 06:09] LABS: Ammonia 97 umol/L (13-55)
[2024-08-06 06:10] LABS: Alanine Aminotransferase 13 U/L (0-40); Albumin Level 3.9 g/dL (3.5-5.0); Alkaline Phosphatase 142 U/L (39-117); Anion Gap 21 (12-20); Aspartate Amino Transferase 61 U/L (5-37); Bilirubin Total 9.9 mg/dL (0.0-1.0); Blood Urea Nitrogen 60 mg/dL (9-16); Calcium 9.4 mg/dL (8.4-10.2); Carbon Dioxide 18 mmol/L (22-29); Chloride 106 mmol/L (96-108); Creatinine Clr Calc Pharmacy 58.1; Estimated Glomerular Filt Rate 35; Glucose Random 127 mg/dL (60-115); Magnesium 2.5 mg/dL (1.6-2.6); Potassium 3.4 mmol/L (3.3-5.1); Sodium 142 mmol/L (135-145); Total Protein 7.1 g/dL (6.5-8.0)
[2024-08-06] MEDS: Norepinephrine Bitartrate/D5W 8 MG/250 ML PLAST..BAG 40.8 MG IVCONT (06:12)
[2024-08-06 06:23] LABS: Atypical Lymph Absolute Manual 0.3 x10*3/uL; Atypical Lymphs Percent Manual 1 % (0-6); Band Neutrophils Percent 13 % (3-5); Eosinophils Absolute Manual 0.7 X10*3/uL (0.0-0.4); Eosinophils Percent Manual 2 % (0-4); Lymphocytes Absolute Manual 2.4 X10*3/uL (1.2-4.9); Lymphocytes Percent Manual 7 % (20-40); Metamyelocytes Absolute 0.3 X10*3/uL; Metamyelocytes Percent 1 %; Monocytes Percent Manual 3 % (2-11); Neutrophils Absolute Manual 29.2 X10*3/uL (2.0-8.3); Neutrophils Percent Manual 73 % (45-73)
[2024-08-06 06:25] LABS: RBC Morphology NOTED
[2024-08-06 06:26] LABS: Acanthocytes 1+ (0-2) /OIF; Hypochromasia 1+ (5-14) /OIF; Platelet Estimate NORMAL (NORMAL); Platelet Morphology Comment NORMAL; Polychromasia 1+ (0-2) /OIF; Spherocytes 1+ (0-2) /OIF; Target Cells 1+ (5-14) /OIF; Tear Drop Cells 1+ (0-2) /OIF; Toxic Vacuolation PRESENT
[2024-08-06] MEDS: Pantoprazole Sodium 40 MG/10 ML VIAL IVPUSH (06:35)
[2024-08-06] MEDS: Bumetanide 25 MG in Container,Empty 0 ML IVCONT (07:18)
[2024-08-06] MEDS: Sodium Bicarbonate 8.4% 150 MEQ in Dextrose 5 % 850 ML 50 MEQ IV (07:25)
[2024-08-06] MEDS: Folic Acid 1 MG in 0.9 % Sodium Chloride 50 ML 100.4 MG IV (08:29)
[2024-08-06] MEDS: Chlorhexidine Gluc Oral Rinse 15 ML MOUTHWASH BUCCAL ×3 (08:29→20:38)
--- NOTE | 2024-08-06 08:40 | P.PNCC_ITS ---
Subjective Subjective Date of Service: 08/06/24 Critical Care Time (minutes): 45 Comment: Increased oxygen requirement overnight, currently on 100% oxygen on the ventilator On Levophed for vasopressor support On propofol for sedation Physical Exam 2 Vital Signs: Vital Signs: Last Vital Signs Temp 98.1 F 08/06/24 08:00 Pulse 99 08/06/24 08:00 Resp 20 08/06/24 08:00 BP 124/50 L 08/06/24 08:00 Pulse Ox 87 L 08/06/24 08:00 O2 Del Method Mechanical Ventil ation 08/06/24 08:00 O2 Flow Rate 65 08/05/24 18:00 FiO2 100 08/06/24 08:18 BMI result Body Mass Index 32.3 General: acute distress, ill appearing and tired appearing Nutritional Appearance: well nourished and overweight Eyes: appearance normal, both eyes and all related structures; Alignment and Position: alignment normal and position normal Neck: No lymphadenopathy, no thyromegaly Resp: bilateral air entry equal, bilateral diffuse crackles heard left more than right Cardio: Regular rate, regular rhythm; Heart sounds: S1 normal heart sound present and S2 normal heart sound present GI: soft, nontender, no guarding, no hepatosplenomegaly : bladder normal to inspection, bladder normal to palpation, no renal angle tenderness Skin: no rashes or lesions noted and elasticity normal Neuro: No focal deficits, on propofol Objective Data Labs 08/06/24 05:32 08/06/24 05:32 Labs: Laboratory Results - last 24 hr 08/06/24 08/06/24 05:29 05:32 WBC 34.0 H* RBC 2.50 L Hgb 7.9 L Hct 25.0 L MCV 100.0 H MCH 31.6 MCHC 31.6 RDW 17.5 H Plt Count 251 D MPV 11.9 Immature Gran % (Auto) Cancelled Neut % (Auto) Cancelled Lymph % (Auto) Cancelled [place] % (Auto) Cancelled Eos % (Auto) Cancelled Baso % (Auto) Cancelled Lymph # (Auto) Cancelled [place] # (Auto) Cancelled Eos # (Auto) Cancelled Baso # (Auto) Cancelled Abs Immat Gran (auto) Cancelled Absolute Neuts (auto) Cancelled Absolute Nucleated RBC 0.070 H Nucleated RBC % (auto) 0.2 Neutrophils % (Manual) 73 Band Neutrophils % 13 H Lymphocytes % (Manual) 7 L Atypical Lymphs % (Man) 1 Monocytes % (Manual) 3 Eosinophils % (Manual) 2 Metamyelocytes % 1 Abs Neuts (Manual) 29.2 H Lymphocytes # (Manual) 2.4 Atyp Lymphs # (Manual) 0.3 Monocytes # (Manual) 1.0 Eosinophils # (Manual) 0.7 H Metamyelocytes # 0.3 Toxic Vacuolation PRESENT Platelet Estimate NORMAL Plt Morphology Comment NORMAL RBC Morphology NOTED Polychromasia 1+ (0-2) Hypochromasia 1+ (5-14) Spherocytes 1+ (0-2) Target Cells 1+ (5-14) Tear Drop Cells 1+ (0-2) Acanthocytes (Spur) 1+ (0-2) VBG pH 7.27 L VBG pCO2 33 VBG pO2 82 VBG HCO3 15 L VBG O2 Saturation 95.0 VBG Base Excess -9.9 Sodium 142 Potassium 3.4 D Chloride 106 Carbon Dioxide 18 L Anion Gap 21 H BUN 60 H Creatinine 2.11 H Estim Creat Clear Calc 58.1 Estimated GFR 35 Random Glucose 127 H Calcium 9.4 Phosphorus 8.0 H Magnesium 2.5 Total Bilirubin 9.9 H AST 61 H ALT 13 Alkaline Phosphatase 142 H Ammonia 97 H Total Protein 7.1 Albumin 3.9 Microbiology Microbiology Results: Microbiology 08/04/24 10:27 Tracheal Aspirate Gram Stain - Final 08/04/24 10:27 Tracheal Aspirate Sputum Culture - Final 08/04/24 15:02 Blood - Venous Blood Culture - Preliminary No growth after 24 hours. 08/04/24 14:15 Blood - Venous Blood Culture - Preliminary No growth after 24 hours. 07/31/24 11:37 Ascites Fluid Gram Stain - Final 07/31/24 11:37 Ascites Fluid Anaerobic Culture - Final NO GROWTH AFTER 5 DAYS 07/31/24 11:37 Ascites Fluid Body Fluid Culture - Final No growth after 2 days 07/30/24 10:45 Blood - Venous Blood Culture - Final No growth after 5 days. 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 On ER evaluation patient in acute liver failure with elevated bilirubin, INR, transaminases, also acute blood loss anemia with initial hemoglobin of 5.6, started on IV fluid and blood product support, also phenobarbital protocol, IV PPI, IV octreotide, empiric ceftriaxone, and admitted to the intensive care unit. Status post EGD 07/31/2024 with no active bleeding noted, but underlying nonbleeding varices and esophageal ulcer, remained intubated at the end of the procedure and transferred back to the intensive care unit with high FiO2 support requirements. Neuro: Acute encephalopathy possibly due to metabolic encephalopathy and hepatic encephalopathy Ammonia 120 yesterday, has p.o. lactulose q.4 hours stool output is about On propofol for sedation, as needed fentanyl for analgesia; continue propofol for RASS of-1 given his high ventilator settings Requiring multiple pushes of rocuronium to prevent vent dyssynchrony, possibly we will start him on a Nimbex drip given his very high ventilator settings Close neurological status monitoring in the ICU every hour Cardiac: Blood pressure is on the lower side due to cirrhotic physiology and positive pressure ventilation, currently on levophed support titrate to keep MAP above 65mmHg Respiratory: Acute hypoxemic respiratory failure due to possibly aspiration pneumonia versus TRALI as required multiple blood transfusions. Currently on ventilator support On bilevel mode FiO2 100%, 30/12, T High 1.5, rate 20 Peak pressures and plateau pressures are under the curve Ventilator management bundle with head end elevation, aspiration precaution, chlorhexidine mouthwash, daily awakening trials, daily spontaneous breathing trials No significant pleural effusions on bedside ultrasound, diffuse B-lines seen along with densely consolidated lung GI: Decompensated liver cirrhosis: Has decompensated liver cirrhosis with significant ascites, hepatic encephalopathy, variceal phenomenon His last drink was about 2 weeks prior to admission to the hospital, has private insurance, father is his next of kin and support. Once his ventilator support improves we will try calling transplant center to see if they are willing to consider him as a transplant candidate. Continue lactulose q.4 hours lactulose enema for the management of hepatic encephalopathy No evidence of SBP on paracentesis tube feeds at 30cc/hr Renal: Acute kidney injury possibly secondary to ATN from sudden drop in hemoglobin. Fluid balance net-1 L Bedside echo showed dilated IVC 2.3 cms Lasix drip switched to Bumex drip to improve urine which is about We will closely monitor I's and O's Avoid nephrotoxic medications Heme: Acute blood loss anemia: Secondary to GI bleed, hemoglobin stable for the past few days Upper GI endoscopy showed nonbleeding varices and an esophageal ulcer Received 6 units of PRBC, 3 units of FFP and 1 unit of platelets so far Endocrine: Blood sugars under control Sliding scale insulin as needed Infectious disease: Pancultures remained negative so far Continue cefepime for bilateral pneumonia Pending sputum cultures MRSA needs negative Musculoskeletal: Decubitus ulcer prevention protocol Lines: peripheral no Cruz Prophylaxis: SCD, pantoprazole Patient has multiple organ failures including acute encephalopathy, cardiogenic shock, acute respiratory failure on ventilator support, decompensated cirrhosis, acute kidney injury. Critical care time spent is about 45 minutes on chart review, review of labs, review of images, ventilator management, ventilator setting changes, managing episodes of vent dyssynchrony, sedation management, close hemodynamic monitoring, close monitoring of neurological status at this time is excluding any procedural time Quality Stroke Does the patient have a stroke diagnosis?: No VTE Prior VTE?: No VTE Risk Level:: Medical - moderate - high VTE Device Contraindication: N/A - Device Ordered VTE Drug Contraindication: Treatment Not Indicated
[2024-08-06 09:07] LABS: ABG Base Excess -9.7 mmol/L; ABG HCO3 18 mmol/L (22-26); ABG pCO2 50 mmHg (32-45); ABG pH 7.16 (7.35-7.45); ABG pO2 72 mmHg (83-108)
[2024-08-06] MEDS: Cisatracurium Besylate 100 MG in 0.9 % Sodium Chloride 40 ML 6.3 MG IVCONT ×2 (09:55→16:11)
[2024-08-06] MEDS: Sodium Bicarbonate 8.4% 50 MEQ in Dextrose 5 % 950 ML IV (10:06)
--- NOTE | 2024-08-06 10:37 | PC.RT ---
RT assist MD in bedside bronchoscopy. Bal with 20 cc 0.9 na with fair return noted. Samples given to nursing. Pt was sxn'd for large amounts dark greenish and thin yellow sec. Pt remained on 100% fio2.
--- NOTE | 2024-08-06 10:59 | W.PM.CCHP ---
Procedures Date of Service Date of Service: 08/06/24 Bronchoscopy Consent for Procedure: Emergent-no informed consent obtained Indication: pulmonary toilet Route: endotracheal tube Monitor: EKG Findings: Bronchoscope was passed through the ET tube, airway looked clean with no mucosal ulcerations or erythema. no endobronchial growth or obstruction. However thin yellow color fluid was noted in the trachea, darkish is a local fluid suctioned out of the right mid lobe and lower lobe bronchis, light yellow color fluid was suctioned from left lower lobe bronchus. Lavage was performed, sample sent for cultures.
[2024-08-06 11:17] LABS: Venous Blood Gas Refer to POC result
--- NOTE | 2024-08-06 11:26 | W.PM.CCHP ---
Procedures Date of Service Date of Service: 08/07/24 Bronchoscopy Consent for Procedure: Emergent-no informed consent obtained Indication: atelectasis and pulmonary toilet Route: endotracheal tube Monitor: pulse oximetry
[2024-08-06] MEDS: Norepinephrine Bitartrate/D5W 8 MG/250 ML PLAST..BAG 47.89 MG IVCONT (11:49)
--- NOTE | 2024-08-06 12:14 | MHC.CLN ---
F/U PT REMAINS INTUBATED AND SEDATED TF CURRENTLY ON HOLD R/T HIGH RESIDUALS WHEN TF TO RESUME; RECOMMEND TF NEPRO AT MAX GOAL RATE 30ML/HR PROVIDES 1296KCALS (1746KCALS WITH SEDATION; 20KCALS/KG), 58G PROTEIN (.7G/KG), 942ML FREE WATER FROM FORMULA MONITOR TOLERANCE AND LYTES FOLLOWING WITH TEAM
[2024-08-06 13:06] LABS: Lymphocytes Bronchial 11 %; Monocytes Bronchial 2 %; Neutrophils Bronchial 73 %; Other Bronchial 14 %; RBC Bronchial Washing 738 MM*3
[2024-08-06 13:08] LABS: WBC Bronchial Washing 1713 MM*3
--- NOTE | 2024-08-06 13:48 | MHC.CM.PN ---
Pt remains intubated in ICU: s/p bronch today: multisystem organ impairment: No changes to goals of care at this time. CM to follow
[2024-08-06 13:51] LABS: MN% 92.2 %; PMN% 7.8 %; RBC Peritoneal Fluid 0.006 X10*6/uL
[2024-08-06 14:11] LABS: ABG Base Excess -8.3 mmol/L; ABG HCO3 20 mmol/L (22-26); ABG pCO2 57 mmHg (32-45); ABG pH 7.15 (7.35-7.45); ABG pO2 87 mmHg (83-108)
[2024-08-06 14:18] LABS: WBC Peritoneal Fluid 0.482 X10*3/uL
[2024-08-06 14:29] LABS: BF Shift QC OK YES; Lymphocyte Peritoneal Fl 79 %; Neutrophils Peritoneal Fluid 17 %; Other Peritioneal Fl 4 %
[2024-08-06] MEDS: Norepinephrine Bitartrate/D5W 8 MG/250 ML PLAST..BAG 62.08 MG IVCONT (16:11)
[2024-08-06] MEDS: Norepinephrine Bitartrate/D5W 8 MG/250 ML PLAST..BAG 58.53 MG IVCONT (20:09)
[2024-08-06 20:31] LABS: Alanine Aminotransferase 18 U/L (0-40); Albumin Level 3.7 g/dL (3.5-5.0); Alkaline Phosphatase 138 U/L (39-117); Anion Gap 19 (12-20); Aspartate Amino Transferase 88 U/L (5-37); Bilirubin Total 9.7 mg/dL (0.0-1.0); Blood Urea Nitrogen 68 mg/dL (9-16); Calcium 8.8 mg/dL (8.4-10.2); Carbon Dioxide 19 mmol/L (22-29); Chloride 106 mmol/L (96-108); Estimated Glomerular Filt Rate 30; Glucose Random 137 mg/dL (60-115); Potassium 2.4 mmol/L (3.3-5.1); Sodium 142 mmol/L (135-145)
--- NOTE | 2024-08-06 21:56 | W.PM.CCHP ---
Procedures Date of Service Date of Service: 08/07/24 Central Line Placement Left IJ: Consent for Procedure: Emergent-no informed consent obtained Time out performed: Yes Sterile Technique Used: Yes Patient placed on monitor/pulse ox: Yes MD prep: mask, gown, gloves and other (hand wash) Central line prep: Chlorhexidine scrub (x2) and sterile drapes applied Ultrasound used for placement: Yes Central line lumen inserted: triple Post procedure: sutured in place, good blood return, all ports aspirated, flushed, capped and sterile dressing applied Post procedure x-ray: tip of catheter in good position and no pneumothorax seen Patient tolerated procedure: well and no complications Complications: none
[2024-08-06] MEDS: Potassium Chloride/H20 40 MEQ/100 ML PIGGYBACK 50 MEQ IV (22:27)
[2024-08-07] VITALS (46 sets, daily range): BP systolic 110–132; BP diastolic 42–57; PULSE 91–100; RESP 14–25; TEMP 34.9–37.1; O2SAT 88–96; BMI 30.6
[2024-08-07] MEDS: Norepinephrine Bitartrate/D5W 8 MG/250 ML PLAST..BAG 51.44 MG IVCONT ×3 (00:22→20:59)
[2024-08-07] MEDS: Potassium Chloride/H20 40 MEQ/100 ML PIGGYBACK 50 MEQ IV ×3 (00:23→08:43)
[2024-08-07] MEDS: Cisatracurium Besylate 100 MG in 0.9 % Sodium Chloride 40 ML 6.3 MG IVCONT ×3 (00:23→19:29)
--- NOTE | 2024-08-07 01:33 | HO.SKINPHOTO ---
Location: Coccyx Category: Stage:
[2024-08-07] MEDS: propofoL 1,000 MG/100 ML VIAL 22.7 MG IVCONT ×6 (01:57→22:30)
[2024-08-07] MEDS: cefEPime HCl 2 GM in 0.9 % Sodium Chloride 50 ML IV (04:33)
[2024-08-07] MEDS: Sodium Bicarbonate 8.4% 50 MEQ in Dextrose 5 % 950 ML IV (04:44)
[2024-08-07 05:14] LABS: VBG Base Excess -5.3 mmol/L; VBG HCO3 20 mmol/L (22-26); VBG pCO2 41 mmHg; VBG pO2 67 mmHg
[2024-08-07 05:27] LABS: Venous Blood Gas Refer to POC result
[2024-08-07] MEDS: Pantoprazole Sodium 40 MG/10 ML VIAL IVPUSH (05:33)
[2024-08-07 05:52] LABS: Basophils Absolute Auto 0.2 X10*3/uL (0.0-0.2); Basophils Percent Auto 0.6 % (0-2); Eosinophils Absolute Auto 0.6 X10*3/uL (0.0-0.4); Eosinophils Percent Auto 1.9 % (0-4); Hematocrit 22.7 % (42.0-52.0); Hemoglobin 7.3 g/dl (14.0-18.0); Imm Gran Abs Auto 1.04 X10*3/uL (0.00-0.03); Imm Gran Pct Auto 3.4 % (0.0-0.4); Lymphocytes Absolute Auto 3.4 X10*3/uL (1.2-4.9); MANUAL DIFF FLAG SCAN; Mean Corpuscular HGB Conc 32.2 g/dl (31.0-36.0); Mean Corpuscular Hemoglobin 31.2 pg (27.0-33.0); Mean Platelet Volume 11.8 fL (9.4-12.4); Monocytes Percent Auto 9.6 % (2-11); NRBC Pct Auto 0.6 /100WBC (0.0-0.2); Neutrophils Absolute Auto 22.6 x10*3/uL (2.0-8.3); Neutrophils Percent Auto 73.5 % (45-73); Platelet Count 253 X10*3/uL (160-400); Red Blood Count 2.34 X10*6/uL (4.60-5.80); Red Cell Distribution Width 17.2 % (11.0-16.0); SCAN SMEAR FLAG 1
[2024-08-07 06:05] LABS: White Blood Count 30.8 X10*3/uL (4.8-10.8)
[2024-08-07 06:13] LABS: SLIDE REVIEW VERIFIED
[2024-08-07 06:14] LABS: Alanine Aminotransferase 19 U/L (0-40); Albumin Level 3.5 g/dL (3.5-5.0); Alkaline Phosphatase 145 U/L (39-117); Anion Gap 19 (12-20); Aspartate Amino Transferase 106 U/L (5-37); Bilirubin Total 8.9 mg/dL (0.0-1.0); Blood Urea Nitrogen 70 mg/dL (9-16); Calcium 9.2 mg/dL (8.4-10.2); Carbon Dioxide 19 mmol/L (22-29); Chloride 106 mmol/L (96-108); Creatinine Clr Calc Pharmacy 45.1; Estimated Glomerular Filt Rate 27; Glucose Random 122 mg/dL (60-115); Magnesium 2.6 mg/dL (1.6-2.6); Phosphorus 6.5 mg/dL (2.7-4.5); Potassium 2.5 mmol/L (3.3-5.1); Sodium 141 mmol/L (135-145); Total Protein 6.7 g/dL (6.5-8.0)
[2024-08-07] MEDS: 0.9 % Sodium Chloride Flush 3 ML SYRINGE IVFLUSH ×2 (07:26→15:42)
[2024-08-07] MEDS: Chlorhexidine Gluc Oral Rinse 15 ML MOUTHWASH BUCCAL ×3 (08:02→21:00)
[2024-08-07] MEDS: Folic Acid 1 MG in 0.9 % Sodium Chloride 50 ML 100.4 MG IV (08:02)
[2024-08-07] MEDS: Bumetanide 25 MG in Container,Empty 0 ML IVCONT (08:48)
--- NOTE | 2024-08-07 08:51 | PM.CCPN ---
Subjective Subjective Date of Service: 08/07/24 Critical Care Time (minutes): 45 Comment: Remains on ventilator support On propofol for sedation, Nimbex drip for paralysis Levophed for vasopressor support Physical Exam Vital Signs: Vital Signs: Last Vital Signs Temp 97.3 F 08/07/24 08:00 Pulse 96 08/07/24 08:44 Resp 25 H 08/07/24 08:00 BP 117/47 L 08/07/24 08:44 Pulse Ox 92 08/07/24 08:00 O2 Del Method Mechanical Ventil ation 08/07/24 08:00 O2 Flow Rate 65 08/05/24 18:00 FiO2 50 08/07/24 08:00 BMI result Body Mass Index 30.6 General: acute distress, ill appearing and tired appearing Nutritional Appearance: well nourished and overweight Eyes: appearance normal, both eyes and all related structures; Alignment and Position: alignment normal and position normal Neck: No lymphadenopathy, no thyromegaly Resp: bilateral air entry equal, bilateral crackles heard Cardio: Regular rate, regular rhythm; Heart sounds: S1 normal heart sound present and S2 normal heart sound present GI: soft, nontender, no guarding, no hepatosplenomegaly : bladder normal to inspection, bladder normal to palpation, no renal angle tenderness Skin: no rashes or lesions noted and elasticity normal Neuro: Sedated and paralyzed Objective Data Labs 08/07/24 05:12 08/07/24 05:12 Labs: Laboratory Results - last 24 hr 08/06/24 08/06/24 08/06/24 08:57 11:02 13:26 WBC RBC Hgb Hct MCV MCH MCHC RDW Plt Count MPV Immature Gran % (Auto) Neut % (Auto) Lymph % (Auto) [place] % (Auto) Eos % (Auto) Baso % (Auto) Lymph # (Auto) [place] # (Auto) Eos # (Auto) Baso # (Auto) Abs Immat Gran (auto) Absolute Neuts (auto) Absolute Nucleated RBC Nucleated RBC % (auto) Smear Tech's Comments O2 Saturation 89.0 ABG pH at Pt Temp 7.16 L* ABG pCO2 at Pt Temp 50 H ABG pO2 at Pt Temp 72 L ABG HCO3 18 L ABG Base Excess (Actual) -9.7 VBG pH VBG pCO2 VBG pO2 VBG HCO3 VBG O2 Saturation VBG Base Excess Sodium Potassium Chloride Carbon Dioxide Anion Gap BUN Creatinine Estim Creat Clear Calc Estimated GFR Random Glucose Calcium Phosphorus Magnesium Total Bilirubin AST ALT Alkaline Phosphatase Total Protein Albumin Peritoneal WBC 0.482 Peritoneal RBC 0.006 [place] Neutrophils 17 Periton Lymphocytes 79 Peritoneal Other Cells 4 Bronchial Fluid WBC 1713 Bronchial Fluid RBC 738 Bronchial Neutrophils 73 Bronchial Lymphocytes 11 Bronchial Monocytes 2 Bronchial Other Cells 14 08/06/24 08/06/24 08/07/24 14:01 19:53 05:04 WBC RBC Hgb Hct MCV MCH MCHC RDW Plt Count MPV Immature Gran % (Auto) Neut % (Auto) Lymph % (Auto) [place] % (Auto) Eos % (Auto) Baso % (Auto) Lymph # (Auto) [place] # (Auto) Eos # (Auto) Baso # (Auto) Abs Immat Gran (auto) Absolute Neuts (auto) Absolute Nucleated RBC Nucleated RBC % (auto) Smear Tech's Comments O2 Saturation 94.0 ABG pH at Pt Temp 7.15 L* ABG pCO2 at Pt Temp 57 H ABG pO2 at Pt Temp 87 ABG HCO3 20 L ABG Base Excess (Actual) -8.3 VBG pH 7.30 L VBG pCO2 41 VBG pO2 67 VBG HCO3 20 L VBG O2 Saturation 90.0 VBG Base Excess -5.3 Sodium 142 Potassium 2.4 L* D Chloride 106 Carbon Dioxide 19 L Anion Gap 19 BUN 68 H Creatinine 2.42 H Estim Creat Clear Calc 51.0 Estimated GFR 30 Random Glucose 137 H Calcium 8.8 D Phosphorus Magnesium Total Bilirubin 9.7 H AST 88 H ALT 18 Alkaline Phosphatase 138 H Total Protein 7.0 Albumin 3.7 Peritoneal WBC Peritoneal RBC Periton Neutrophils Periton Lymphocytes Peritoneal Other Cells Bronchial Fluid WBC Bronchial Fluid RBC Bronchial Neutrophils Bronchial Lymphocytes Bronchial Monocytes Bronchial Other Cells 08/07/24 05:12 WBC 30.8 H* RBC 2.34 L Hgb 7.3 L Hct 22.7 L MCV 97.0 MCH 31.2 MCHC 32.2 RDW 17.2 H Plt Count 253 MPV 11.8 Immature Gran % (Auto) 3.4 H Neut % (Auto) 73.5 H Lymph % (Auto) 11.0 L [place] % (Auto) 9.6 Eos % (Auto) 1.9 Baso % (Auto) 0.6 Lymph # (Auto) 3.4 [place] # (Auto) 3.0 H Eos # (Auto) 0.6 H Baso # (Auto) 0.2 Abs Immat Gran (auto) 1.04 H Absolute Neuts (auto) 22.6 H Absolute Nucleated RBC 0.170 H Nucleated RBC % (auto) 0.6 H Smear Tech's Comments VERIFIED O2 Saturation ABG pH at Pt Temp ABG pCO2 at Pt Temp ABG pO2 at Pt Temp ABG HCO3 ABG Base Excess (Actual) VBG pH VBG pCO2 VBG pO2 VBG HCO3 VBG O2 Saturation VBG Base Excess Sodium 141 Potassium 2.5 L* Chloride 106 Carbon Dioxide 19 L Anion Gap 19 BUN 70 H Creatinine 2.67 H Estim Creat Clear Calc 45.1 Estimated GFR 27 Random Glucose 122 H Calcium 9.2 Phosphorus 6.5 H Magnesium 2.6 Total Bilirubin 8.9 H AST 106 H ALT 19 Alkaline Phosphatase 145 H Total Protein 6.7 Albumin 3.5 Peritoneal WBC Peritoneal RBC Periton Neutrophils Periton Lymphocytes Peritoneal Other Cells Bronchial Fluid WBC Bronchial Fluid RBC Bronchial Neutrophils Bronchial Lymphocytes Bronchial Monocytes Bronchial Other Cells Microbiology Microbiology Results: Microbiology 08/04/24 15:02 Blood - Venous Blood Culture - Preliminary No growth after 48 hours. 08/04/24 14:15 Blood - Venous Blood Culture - Preliminary No growth after 48 hours. 08/06/24 13:22 Ascites Fluid Gram Stain - Final 08/06/24 11:03 Bronch Tube 2 Gram Stain - Final 08/06/24 11:03 Bronch Tube 1 Gram Stain - Final 08/04/24 10:27 Tracheal Aspirate Gram Stain - Final 08/04/24 10:27 Tracheal Aspirate Sputum Culture - Final 07/31/24 11:37 Ascites Fluid Gram Stain - Final 07/31/24 11:37 Ascites Fluid Anaerobic Culture - Final NO GROWTH AFTER 5 DAYS 07/31/24 11:37 Ascites Fluid Body Fluid Culture - Final No growth after 2 days 07/30/24 10:45 Blood - Venous Blood Culture - Final No growth after 5 days. 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 On ER evaluation patient in acute liver failure with elevated bilirubin, INR, transaminases, also acute blood loss anemia with initial hemoglobin of 5.6, started on IV fluid and blood product support, also phenobarbital protocol, IV PPI, IV octreotide, empiric ceftriaxone, and admitted to the intensive care unit. Status post EGD 07/31/2024 with no active bleeding noted, but underlying nonbleeding varices and esophageal ulcer, remained intubated at the end of the procedure and transferred back to the intensive care unit with high FiO2 support requirements. Neuro: Acute encephalopathy possibly due to metabolic encephalopathy and hepatic encephalopathy Ammonia 120 yesterday, has p.o. lactulose q.4 hours stool output is about On propofol for sedation, as needed fentanyl for analgesia; on Nimbex drip for paralysis due to significant vent dyssynchrony Close neurological status monitoring in the ICU every hour Cardiac: Blood pressure is on the lower side due to cirrhotic physiology and positive pressure ventilation, currently on levophed support titrate to keep MAP above 65mmHg Respiratory: Acute hypoxemic respiratory failure due to possibly aspiration pneumonia versus TRALI as required multiple blood transfusions. Currently on ventilator support On PRVC mode FiO2 60%, TV 350, PEEP 14, rate 20 Peak pressures and plateau pressures are under the curve Ventilator management bundle with head end elevation, aspiration precaution, chlorhexidine mouthwash, daily awakening trials, daily spontaneous breathing trials No significant pleural effusions on bedside ultrasound, diffuse B-lines seen along with densely consolidated lung Underwent bronchoscopy which showed no intraluminal lesions or obstruction, yellow and brownish yellow liquidy secretions in large amount seen in both lungs which has been lavaged and sent for cultures GI: Decompensated liver cirrhosis: Has decompensated liver cirrhosis with significant ascites, hepatic encephalopathy, variceal phenomenon His last drink was about 2 weeks prior to admission to the hospital, has private insurance, father is his next of kin and support. Once his ventilator support improves we will try calling transplant center to see if they are willing to consider him as a transplant candidate. Continue lactulose q.4 hours lactulose enema for the management of hepatic encephalopathy Underwent paracentesis yesterday with 1.7 L fluid removal No evidence of SBP on paracentesis tube feeds at 30cc/hr Renal: Acute kidney injury possibly secondary to ATN from sudden drop in hemoglobin. Creatinine increased to 2.67 this morning, no indication for renal replacement therapy Fluid balance net-3.4L Bedside echo showed dilated IVC 2.3 cms Lasix drip switched to Bumex drip to improve urine which is about We will closely monitor I's and O's Avoid nephrotoxic medications Acute hypokalemia: potassium 2.8, receiving multiple doses of KCl replacement secondary to diuresis Mg normal Heme: Acute blood loss anemia: Secondary to GI bleed, hemoglobin stable for the past few days Upper GI endoscopy showed nonbleeding varices and an esophageal ulcer Received 6 units of PRBC, 3 units of FFP and 1 unit of platelets so far Endocrine: Blood sugars under control Sliding scale insulin as needed Infectious disease: Pancultures remained negative so far WBC count down to 30k from 34 yesterday Continue cefepime for bilateral pneumonia Pending cultures from bronchoscopy yesterday MRSA needs negative Musculoskeletal: Decubitus ulcer in coccyx wound culture consulted. Lines: TLC placed on 08/06/2024 no Cruz Prophylaxis: SCD, pantoprazole Quality Stroke Does the patient have a stroke diagnosis?: No VTE Prior VTE?: No VTE Risk Level:: Medical - moderate - high VTE Device Contraindication: N/A - Device Ordered VTE Drug Contraindication: Treatment Not Indicated
[2024-08-07] MEDS: Norepinephrine Bitartrate/D5W 8 MG/250 ML PLAST..BAG 44.34 MG IVCONT (10:02)
[2024-08-07 11:46] LABS: Albumin Peritoneal Fluid 1.8; LDH Peritoneal Fluid 64; Total Protein Peritoneal Fluid 2.2
[2024-08-07 11:47] LABS: Amylase Peritoneal Fluid 67; Creatinine Peritoneal Fluid 1.8; Glucose Peritoneal Fluid 140
[2024-08-07 12:44] LABS: Hematocrit 22.2 % (42.0-52.0); Hemoglobin 7.3 g/dl (14.0-18.0); Mean Corpuscular HGB Conc 32.9 g/dl (31.0-36.0); Mean Corpuscular Hemoglobin 31.5 pg (27.0-33.0); Mean Corpuscular Volume 95.7 fL (80.0-98.0); Mean Platelet Volume 11.3 fL (9.4-12.4); NRBC Pct Auto 0.6 /100WBC (0.0-0.2); Platelet Count 257 X10*3/uL (160-400); Red Blood Count 2.32 X10*6/uL (4.60-5.80); Red Cell Distribution Width 17.3 % (11.0-16.0)
[2024-08-07 12:48] LABS: White Blood Count 30.2 X10*3/uL (4.8-10.8)
--- NOTE | 2024-08-07 12:50 | W.PM.CCHP ---
Procedures Date of Service Date of Service: 08/07/24 Paracentesis Consent for Procedure: Elective - informed consent obtained Time out performed: Yes Indication: Ascites Procedure: therapeutic paracentesis Location: Q Bedside ultrasound used: yes, real-time guidance Preparation: 11 blade used to make naveen in skin Amount of fluid obtained (ml): 1,700 Fluid: clear Post procedure exam: normal HR and normal SpO2 Patient tolerated procedure: well and no complications Complications: none
[2024-08-07] MEDS: Norepinephrine Bitartrate/D5W 8 MG/250 ML PLAST..BAG 47.89 MG IVCONT (15:44)
--- NOTE | 2024-08-07 16:13 | HO.WOUND ---
Wound Consult: Initial 39yr old?male admitted to [facility] [place] on 07/30/24 - See progress notes and H&P for detailed history.? Wound consult placed for Coccyx wound.? Chart review and photo documentation reviewed - not yet assessed in person. Sacrum and Perianal area Etiology: ?MASD Wound Bed: red pink wound bed with partial thickness tissue loss Edges: ? linear Lori wound: pink erythema - MASD ? Goals of Treatment: ? Triad to protect from moisture and friciton Recommendations: 1. Turn and Reposition every 2 hours and as needed for patient comfort.? Use pillows or wedges to support off loading positions. 2. Off Load all bony prominences with use of pillows and heel boots if needed.? Apply Preventative foams where needed. ? 3. Monitor for incontinence and moisture control, use barrier creams when needed for prevention and treatment. 4. Provide adequate and supplemental nutrition.? 5. Continue low air loss mattress. 6. When applicable maintain blood glucose levels per Providers order. 7. Coccyx and Perianal - Off Load Pressure - Cleanse with PH balance spray or wipes, pat dry. ?Apply thin layer of Triad to wound bed - only pat and dab no scrub and rub when soiling occurs. Reapply thin layer PRN after each episode of incontinence. Re-consult wound care Nurse for wound deterioration or wound changes.
[2024-08-07] MEDS: cefEPime HCl/D5W 2 GM/50 ML PIGGYBACK IV (16:50)
[2024-08-08] VITALS (46 sets, daily range): BP systolic 117–136; BP diastolic 47–62; PULSE 86–105; RESP 17–25; TEMP 34.9–38.1; O2SAT 89–98; BMI 28.1
[2024-08-08] MEDS: Sodium Bicarbonate 8.4% 50 MEQ in Dextrose 5 % 950 ML IV (00:49)
[2024-08-08] MEDS: Norepinephrine Bitartrate/D5W 8 MG/250 ML PLAST..BAG 47.89 MG IVCONT (01:27)
[2024-08-08] MEDS: propofoL 1,000 MG/100 ML VIAL 22.7 MG IVCONT ×6 (02:14→22:59)
[2024-08-08] MEDS: cefEPime HCl/D5W 2 GM/50 ML PIGGYBACK IV ×2 (04:42→16:05)
[2024-08-08 05:33] LABS: Venous Blood Gas Refer to POC result
[2024-08-08 05:34] LABS: VBG Base Excess -3.6 mmol/L; VBG HCO3 20 mmol/L (22-26); VBG pCO2 33 mmHg; VBG pH 7.39 (7.32-7.43); VBG pO2 87 mmHg
[2024-08-08 05:44] LABS: Basophils Absolute Auto 0.2 X10*3/uL (0.0-0.2); Basophils Percent Auto 0.7 % (0-2); Eosinophils Percent Auto 3.7 % (0-4); Hemoglobin 7.3 g/dl (14.0-18.0); Imm Gran Abs Auto 1.09 X10*3/uL (0.00-0.03); Imm Gran Pct Auto 4.1 % (0.0-0.4); Lymphocytes Absolute Auto 3.5 X10*3/uL (1.2-4.9); Lymphocytes Percent Auto 12.9 % (20-40); MANUAL DIFF FLAG SCAN; Mean Corpuscular HGB Conc 33.2 g/dl (31.0-36.0); Mean Corpuscular Hemoglobin 31.2 pg (27.0-33.0); Mean Platelet Volume 11.4 fL (9.4-12.4); Monocytes Absolute Auto 2.7 X10*3/uL (0.1-1.2); Monocytes Percent Auto 10.2 % (2-11); NRBC Pct Auto 0.8 /100WBC (0.0-0.2); Neutrophils Absolute Auto 18.3 x10*3/uL (2.0-8.3); Neutrophils Percent Auto 68.4 % (45-73); Platelet Count 272 X10*3/uL (160-400); Red Blood Count 2.34 X10*6/uL (4.60-5.80); SCAN SMEAR FLAG 1; White Blood Count 26.7 X10*3/uL (4.8-10.8)
[2024-08-08 06:02] LABS: SLIDE REVIEW VERIFIED
[2024-08-08 06:05] LABS: Alanine Aminotransferase 20 U/L (0-40); Albumin Level 3.2 g/dL (3.5-5.0); Alkaline Phosphatase 215 U/L (39-117); Anion Gap 19 (12-20); Aspartate Amino Transferase 106 U/L (5-37); Bilirubin Total 8.6 mg/dL (0.0-1.0); Blood Urea Nitrogen 79 mg/dL (9-16); Calcium 8.6 mg/dL (8.4-10.2); Carbon Dioxide 20 mmol/L (22-29); Chloride 102 mmol/L (96-108); Creatinine Clr Calc Pharmacy 49.5; Estimated Glomerular Filt Rate 30; Glucose Random 137 mg/dL (60-115); Phosphorus 6.2 mg/dL (2.7-4.5); Potassium 2.4 mmol/L (3.3-5.1); Sodium 139 mmol/L (135-145); Total Protein 6.5 g/dL (6.5-8.0)
[2024-08-08] MEDS: Pantoprazole Sodium 40 MG/10 ML VIAL IVPUSH (06:11)
[2024-08-08] MEDS: Potassium Chloride/H20 40 MEQ/100 ML PIGGYBACK 50 MEQ IV ×2 (06:30→08:45)
[2024-08-08] MEDS: Norepinephrine Bitartrate/D5W 8 MG/250 ML PLAST..BAG 40.8 MG IVCONT (06:42)
[2024-08-08] MEDS: Folic Acid 1 MG in 0.9 % Sodium Chloride 50 ML 100.4 MG IV (07:41)
[2024-08-08] MEDS: Chlorhexidine Gluc Oral Rinse 15 ML MOUTHWASH BUCCAL ×3 (07:42→19:45)
--- NOTE | 2024-08-08 08:04 | PC.NURSE ---
Addendum entered by Nicola Wilkes RN 08/08/24 18:04: pt residual from OGT 550cc. TF placed on hold Addendum entered by Nicola Wilkes RN 08/08/24 14:48: per d/c nimbex drip Addendum entered by Nicola Wilkes RN 08/08/24 09:24: bedside bronch being peformed, MD, RT and RN at bedside. time out performed. per no meds to be administered for bronch Addendum entered by Nicola Wilkes RN 08/08/24 08:31: informed md pt has not been on TF and PO meds not being given. per start TF and administer PO meds despite pt being paralyzed Addendum entered by Nicola Wlikes RN 08/08/24 08:18: per maintain Nimbex at current rate. Nimbex is to keep pt compliant with vent and not over breath the vent. informed of L lung change on XR compared to XR from the . Per MD, plan to bronch pt and assess for obstruction. Original Note: TOF 4/4 twitches at 4mA, 0/4 @ 3mA. ETT noted to be at a different level than previous assessment and breath sounds heard while at bedside with RT after repositioning pt. RT informed of previous CXR. RT advanced ETT to 22 @ teeth, previously 21 @ teeth. CXR ordered. MD informed of previous findings.
[2024-08-08] MEDS: Lactulose 20 GM/30 ML SOLUTION 30 GM PO ×4 (08:42→20:58)
[2024-08-08] MEDS: Cisatracurium Besylate 100 MG in 0.9 % Sodium Chloride 40 ML IVCONT (08:45)
--- NOTE | 2024-08-08 08:51 | P.PNCC_ITS ---
Subjective Subjective Date of Service: 08/08/24 Critical Care Time (minutes): 40 Comment: Continues to be on ventilator support On Levophed for vasopressor support White count slowly improving, kidney function slightly better than yesterday, bilirubin slowly dropping AST stable Chest x-ray showed improved aeration in the right lung, collapse of the left lower lung Physical Exam 2 Vital Signs: Vital Signs: Last Vital Signs Temp 96.8 F 08/08/24 08:00 Pulse 87 08/08/24 08:00 Resp 24 H 08/08/24 08:00 BP 117/50 L 08/08/24 08:00 Pulse Ox 89 L 08/08/24 08:00 O2 Del Method Mechanical Ventil ation 08/08/24 08:00 O2 Flow Rate 65 08/05/24 18:00 FiO2 50 08/08/24 08:00 BMI result Body Mass Index 28.1 General: acute distress, ill appearing and tired appearing Nutritional Appearance: well nourished and overweight Eyes: appearance normal, both eyes and all related structures; Alignment and Position: alignment normal and position normal Neck: No lymphadenopathy, no thyromegaly Resp: bilateral air entry equal, crackles heard more on the left lung than on the right lung Cardio: Regular rate, regular rhythm; Heart sounds: S1 normal heart sound present and S2 normal heart sound present GI: soft, nontender, no guarding, no hepatosplenomegaly : bladder normal to inspection, bladder normal to palpation, no renal angle tenderness Skin: no rashes or lesions noted and elasticity normal Neuro: Paralyzed with Nimbex, sedated with propofol Objective Data Labs 08/08/24 05:23 08/08/24 05:40 Labs: Laboratory Results - last 24 hr 08/06/24 08/07/24 08/08/24 13:26 12:36 05:23 WBC 30.2 H* 26.7 H RBC 2.32 L 2.34 L Hgb 7.3 L 7.3 L Hct 22.2 L 22.0 L MCV 95.7 94.0 MCH 31.5 31.2 MCHC 32.9 33.2 RDW 17.3 H 17.0 H Plt Count 257 272 MPV 11.3 11.4 Immature Gran % (Auto) 4.1 H Neut % (Auto) 68.4 Lymph % (Auto) 12.9 L [place] % (Auto) 10.2 Eos % (Auto) 3.7 Baso % (Auto) 0.7 Lymph # (Auto) 3.5 [place] # (Auto) 2.7 H Eos # (Auto) 1.0 H Baso # (Auto) 0.2 Abs Immat Gran (auto) 1.09 H Absolute Neuts (auto) 18.3 H Absolute Nucleated RBC 0.190 H 0.220 H Nucleated RBC % (auto) 0.6 H 0.8 H Smear Tech's Comments VERIFIED VBG pH VBG pCO2 VBG pO2 VBG HCO3 VBG O2 Saturation VBG Base Excess Sodium Potassium Chloride Carbon Dioxide Anion Gap BUN Creatinine Estim Creat Clear Calc Estimated GFR Random Glucose Calcium Phosphorus Total Bilirubin AST ALT Alkaline Phosphatase Total Protein Albumin Peritoneal Creatinine 1.8 Peritoneal Tot Protein 2.2 Peritoneal Albumin 1.8 Peritoneal LDH 64 Peritoneal Glucose 140 Peritoneal Amylase 67 08/08/24 08/08/24 05:29 05:40 WBC RBC Hgb Hct MCV MCH MCHC RDW Plt Count MPV Immature Gran % (Auto) Neut % (Auto) Lymph % (Auto) [place] % (Auto) Eos % (Auto) Baso % (Auto) Lymph # (Auto) [place] # (Auto) Eos # (Auto) Baso # (Auto) Abs Immat Gran (auto) Absolute Neuts (auto) Absolute Nucleated RBC Nucleated RBC % (auto) Smear Tech's Comments VBG pH 7.39 VBG pCO2 33 VBG pO2 87 VBG HCO3 20 L VBG O2 Saturation 98.0 VBG Base Excess -3.6 Sodium 139 Potassium 2.4 L* Chloride 102 Carbon Dioxide 20 L Anion Gap 19 BUN 79 H Creatinine 2.43 H Estim Creat Clear Calc 49.5 Estimated GFR 30 Random Glucose 137 H Calcium 8.6 D Phosphorus 6.2 H Total Bilirubin 8.6 H AST 106 H ALT 20 Alkaline Phosphatase 215 H Total Protein 6.5 Albumin 3.2 L Peritoneal Creatinine Peritoneal Tot Protein Peritoneal Albumin Peritoneal LDH Peritoneal Glucose Peritoneal Amylase Microbiology Microbiology Results: Microbiology 08/06/24 13:22 Ascites Fluid Gram Stain - Final 08/06/24 13:22 Ascites Fluid Routine Culture - Preliminary No growth to date. 08/06/24 13:22 Ascites Fluid Anaerobic Culture - Preliminary No growth to date. 08/06/24 11:03 Bronch Tube 2 Gram Stain - Final 08/06/24 11:03 Bronch Tube 2 - Preliminary Culture in progress. 08/06/24 11:03 Bronch Tube 1 Gram Stain - Final 08/06/24 11:03 Bronch Tube 1 - Preliminary No growth to date. 08/04/24 15:02 Blood - Venous Blood Culture - Preliminary No growth after 48 hours. 08/04/24 14:15 Blood - Venous Blood Culture - Preliminary No growth after 48 hours. 08/04/24 10:27 Tracheal Aspirate Gram Stain - Final 08/04/24 10:27 Tracheal Aspirate Sputum Culture - Final 07/31/24 11:37 Ascites Fluid Gram Stain - Final 07/31/24 11:37 Ascites Fluid Anaerobic Culture - Final NO GROWTH AFTER 5 DAYS 07/31/24 11:37 Ascites Fluid Body Fluid Culture - Final No growth after 2 days 07/30/24 10:45 Blood - Venous Blood Culture - Final No growth after 5 days. 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 On ER evaluation patient in acute liver failure with elevated bilirubin, INR, transaminases, also acute blood loss anemia with initial hemoglobin of 5.6, started on IV fluid and blood product support, also phenobarbital protocol, IV PPI, IV octreotide, empiric ceftriaxone, and admitted to the intensive care unit. Status post EGD 07/31/2024 with no active bleeding noted, but underlying nonbleeding varices and esophageal ulcer, remained intubated at the end of the procedure and transferred back to the intensive care unit with high FiO2 support requirements. His ICU course has been very much complicated with vent dyssynchrony, bilateral lung infiltrates needing very high oxygen requirements that is slowly improved with high PEEPs. He is paralyzed with Nimbex for vent dyssynchrony; bronchoscopy showed significant yellowish and brownish colored thin liquid out from both the lungs Neuro: Acute encephalopathy possibly due to metabolic encephalopathy and hepatic encephalopathy Ammonia 97 yesterday, has p.o. lactulose q.4 hours stool output is about On propofol for sedation, as needed fentanyl for analgesia; on Nimbex drip for paralysis due to significant vent dyssynchrony; later during the day if the oxygenation improves we will take off Nimbex Close neurological status monitoring in the ICU every hour Cardiac: Blood pressure is on the lower side due to cirrhotic physiology and positive pressure ventilation, currently on levophed support titrate to keep MAP above 65mmHg Respiratory: Acute hypoxemic respiratory failure due to possibly aspiration pneumonia versus TRALI as required multiple blood transfusions. Currently on ventilator support On PRVC mode FiO2 down to 50%, TV 350, PEEP 14, rate 20 Peak pressures and plateau pressures are under the curve Ventilator management bundle with head end elevation, aspiration precaution, chlorhexidine mouthwash, daily awakening trials, daily spontaneous breathing trials No significant pleural effusions on bedside ultrasound, diffuse B-lines seen along with densely consolidated lung Underwent bronchoscopy which showed no intraluminal lesions or obstruction, yellow and brownish yellow liquidy secretions in large amount seen in both lungs which has been lavaged and sent for cultures Chest x-ray this morning showing collapse of the left lower lobe, clearing of the right lung. We will do a repeat bronchoscopy to check for any intraluminal obstruction GI: Decompensated liver cirrhosis: Has decompensated liver cirrhosis with significant ascites, hepatic encephalopathy, variceal phenomenon His last drink was about 2 weeks prior to admission to the hospital, has private insurance, father is his next of kin and support. Once his ventilator support improves we will try calling transplant center to see if they are willing to consider him as a transplant candidate. Continue lactulose q.4 hours lactulose enema for the management of hepatic encephalopathy Underwent paracentesis yesterday with 1.7 L fluid removal No evidence of SBP on paracentesis tube feeds at 30cc/hr Renal: Acute kidney injury possibly secondary to ATN from sudden drop in hemoglobin. Creatinine slightly improved down to 2.4 this morning, no indication for renal replacement therapy Fluid balance net-300mL Bedside echo showed dilated IVC 2.3 cms but this might be partially affected from very high PEEP On Bumex drip We will closely monitor I's and O's Avoid nephrotoxic medications Acute hypokalemia: potassium 2.8, receiving multiple doses of KCl replacement secondary to diuresis Mg normal We will aggressively replete potassium Heme: Acute blood loss anemia: Secondary to GI bleed, hemoglobin stable for the past few days, 7.3 since yesterday Upper GI endoscopy showed nonbleeding varices and an esophageal ulcer Received 6 units of PRBC, 3 units of FFP and 1 unit of platelets so far Endocrine: Blood sugars under control Sliding scale insulin as needed Infectious disease: Pancultures remained negative so far WBC count trending down Continue cefepime for bilateral pneumonia Pending cultures from bronchoscopy yesterday MRSA needs negative Musculoskeletal: Decubitus ulcer in coccyx wound culture consulted. Lines: TLC placed on 08/06/2024 no Cruz Prophylaxis: SCD, pantoprazole This patient is critically ill with multiple organ failures including acute encephalopathy, acute hypoxemic respiratory failure, cardiogenic shock, acute kidney injury, decompensated liver cirrhosis. Critical care time spent is about 45 later management, paralytic management sedation management, close neurological status monitoring, vasopressor management, close hemodynamic status monitoring at this time is excluding any procedural time Quality Stroke Does the patient have a stroke diagnosis?: No VTE Prior VTE?: No VTE Risk Level:: Medical - moderate - high VTE Device Contraindication: N/A - Device Ordered VTE Drug Contraindication: Treatment Not Indicated
--- NOTE | 2024-08-08 10:15 | W.PM.CCHP ---
Procedures Date of Service Date of Service: 08/08/24 Bronchoscopy Bronchoscopy Comments: Patient had collapse of left lower lobe on the chest x-ray so a therapeutic bronch was performed Consent for Procedure: Emergent-no informed consent obtained Indication: atelectasis Route: endotracheal tube Monitor: EKG and pulse oximetry Findings: Dense thick secretions very difficult to be aspirated was seen clogging the whole of the left main, left upper and left left lower lobe bronchioles with complete airway obstruction. This was lavaged and suctioned and the airway was cleared at the end of the procedure.
[2024-08-08 10:52] LABS: Basophils Absolute Auto 0.3 X10*3/uL (0.0-0.2); Basophils Percent Auto 1.1 % (0-2); Eosinophils Percent Auto 3.8 % (0-4); Hematocrit 21.5 % (42.0-52.0); Hemoglobin 7.4 g/dl (14.0-18.0); Imm Gran Abs Auto 1.04 X10*3/uL (0.00-0.03); Imm Gran Pct Auto 4.1 % (0.0-0.4); Lymphocytes Absolute Auto 3.1 X10*3/uL (1.2-4.9); Lymphocytes Percent Auto 12.2 % (20-40); MANUAL DIFF FLAG SCAN; Mean Corpuscular HGB Conc 34.4 g/dl (31.0-36.0); Mean Corpuscular Hemoglobin 31.9 pg (27.0-33.0); Mean Corpuscular Volume 92.7 fL (80.0-98.0); Mean Platelet Volume 11.4 fL (9.4-12.4); Monocytes Absolute Auto 2.8 X10*3/uL (0.1-1.2); Monocytes Percent Auto 11.1 % (2-11); NRBC Pct Auto 0.9 /100WBC (0.0-0.2); Neutrophils Absolute Auto 17.2 x10*3/uL (2.0-8.3); Neutrophils Percent Auto 67.7 % (45-73); Platelet Count 262 X10*3/uL (160-400); Red Blood Count 2.32 X10*6/uL (4.60-5.80); SCAN SMEAR FLAG 1; White Blood Count 25.5 X10*3/uL (4.8-10.8)
--- NOTE | 2024-08-08 11:24 | PC.RT ---
RT assisted MD with bedside bronch. pt well sedated, MD able to clear left side for copious amounts of thick yellow secretions. Sputum spec obtained, and sent to lab for analysis. pt spo2 improved post bronch. Total time of bronch was 45 minutes.
--- NOTE | 2024-08-08 11:35 | MHC.CLN ---
F/U PT REMAINS INTUBATED AND SEDATED TF PREVIOUSLY ON HOLD R/T HIGH RESIDUALS DISCUSSED IN ROUNDS WITH TF NEPRO AT MAX GOAL RATE 30ML/HR PROVIDES 1296KCALS (1895KCALS WITH SEDATION; 22KCALS/KG), 58G PROTEIN (.7G/KG), 942ML FREE WATER FROM FORMULA MONITOR TOLERANCE AND LYTES
--- NOTE | 2024-08-08 12:17 | MHC.CM.PN ---
Pt remains intubated: s/p bronch today: creatinine and WBC improved. No plans to extubate at this time. CM to follow
[2024-08-08] MEDS: Norepinephrine Bitartrate/D5W 8 MG/250 ML PLAST..BAG 35.48 MG IVCONT (13:24)
[2024-08-08] MEDS: Norepinephrine Bitartrate/D5W 8 MG/250 ML PLAST..BAG 39.02 MG IVCONT (19:44)
[2024-08-08 21:25] LABS: Alanine Aminotransferase 23 U/L (0-40); Alkaline Phosphatase 151 U/L (39-117); Anion Gap 17 (12-20); Aspartate Amino Transferase 109 U/L (5-37); Bilirubin Total 8.4 mg/dL (0.0-1.0); Blood Urea Nitrogen 88 mg/dL (9-16); Calcium 8.1 mg/dL (8.4-10.2); Carbon Dioxide 22 mmol/L (22-29); Chloride 104 mmol/L (96-108); Estimated Glomerular Filt Rate 31; Glucose Random 136 mg/dL (60-115); Magnesium 2.2 mg/dL (1.6-2.6); Phosphorus 5.5 mg/dL (2.7-4.5); Potassium 2.6 mmol/L (3.3-5.1); Sodium 140 mmol/L (135-145); Total Protein 6.1 g/dL (6.5-8.0)
[2024-08-08] MEDS: Potassium Chloride/H20 40 MEQ/100 ML PIGGYBACK 100 MEQ IV ×2 (22:06→23:09)
[2024-08-08] MEDS: 0.9 % Sodium Chloride Flush 3 ML SYRINGE IVFLUSH (23:03)
[2024-08-09] VITALS (47 sets, daily range): BP systolic 110–140; BP diastolic 45–63; PULSE 82–101; RESP 17–25; TEMP 34.1–38.2; O2SAT 91–96; BMI 28.8
[2024-08-09] MEDS: Lactulose 20 GM/30 ML SOLUTION 30 GM PO ×6 (01:54→20:10)
[2024-08-09] MEDS: Norepinephrine Bitartrate/D5W 8 MG/250 ML PLAST..BAG 39.02 MG IVCONT ×2 (01:59→08:15)
[2024-08-09] MEDS: propofoL 1,000 MG/100 ML VIAL 22.7 MG IVCONT ×2 (02:01→05:56)
[2024-08-09] MEDS: Potassium Chloride/H20 40 MEQ/100 ML PIGGYBACK 100 MEQ IV ×2 (02:52→03:56)
[2024-08-09] MEDS: Albumin Human 25 % 100 ML IV ×2 (02:55→03:58)
[2024-08-09 04:43] LABS: VBG Base Excess -2.8 mmol/L; VBG HCO3 22 mmol/L (22-26); VBG pCO2 38 mmHg; VBG pH 7.36 (7.32-7.43); VBG pO2 67 mmHg
[2024-08-09 04:45] LABS: Venous Blood Gas Refer to POC result
[2024-08-09 04:45] LABS: Basophils Absolute Auto 0.3 X10*3/uL (0.0-0.2); Basophils Percent Auto 1.1 % (0-2); Eosinophils Absolute Auto 0.9 X10*3/uL (0.0-0.4); Eosinophils Percent Auto 3.4 % (0-4); Imm Gran Pct Auto 3.5 % (0.0-0.4); Lymphocytes Absolute Auto 3.6 X10*3/uL (1.2-4.9); MANUAL DIFF FLAG SCAN; Mean Corpuscular HGB Conc 34.1 g/dl (31.0-36.0); Mean Corpuscular Hemoglobin 31.2 pg (27.0-33.0); Mean Corpuscular Volume 91.6 fL (80.0-98.0); Mean Platelet Volume 10.9 fL (9.4-12.4); Monocytes Absolute Auto 2.9 X10*3/uL (0.1-1.2); Monocytes Percent Auto 11.5 % (2-11); NRBC Pct Auto 0.9 /100WBC (0.0-0.2); Neutrophils Percent Auto 66.5 % (45-73); Platelet Count 203 X10*3/uL (160-400); Red Blood Count 2.02 X10*6/uL (4.60-5.80); Red Cell Distribution Width 16.7 % (11.0-16.0); SCAN SMEAR FLAG 1; White Blood Count 25.6 X10*3/uL (4.8-10.8)
[2024-08-09 04:52] LABS: Hematocrit 18.5 % (42.0-52.0); Hemoglobin 6.3 g/dl (14.0-18.0)
[2024-08-09 05:02] LABS: SLIDE REVIEW VERIFIED
[2024-08-09 05:04] LABS: Alanine Aminotransferase 24 U/L (0-40); Albumin Level 3.4 g/dL (3.5-5.0); Alkaline Phosphatase 182 U/L (39-117); Anion Gap 17 (12-20); Aspartate Amino Transferase 113 U/L (5-37); Bilirubin Total 8.1 mg/dL (0.0-1.0); Blood Urea Nitrogen 86 mg/dL (9-16); Calcium 8.5 mg/dL (8.4-10.2); Carbon Dioxide 22 mmol/L (22-29); Chloride 107 mmol/L (96-108); Creatinine Clr Calc Pharmacy 48.6; Estimated Glomerular Filt Rate 31; Glucose Random 131 mg/dL (60-115); Potassium 3.5 mmol/L (3.3-5.1); Sodium 142 mmol/L (135-145); Total Protein 6.4 g/dL (6.5-8.0)
[2024-08-09] MEDS: Bumetanide 25 MG in Container,Empty 0 ML IVCONT (05:27)
[2024-08-09] MEDS: Pantoprazole Sodium 80 MG in 0.9 % Sodium Chloride 80 ML 10 MG IV ×2 (05:29→13:30)
[2024-08-09] MEDS: cefEPime HCl/D5W 2 GM/50 ML PIGGYBACK IV ×2 (05:34→16:41)
--- NOTE | 2024-08-09 07:08 | HO.SKINPHOTO ---
Location: Left AC Category: Abrasion Location: Right medial thigh Category: blister
[2024-08-09] MEDS: Octreotide Acetate 500 MCG in 0.9 % Sodium Chloride 500 ML 50.1 MCG IVCONT ×2 (08:22→18:19)
[2024-08-09] MEDS: 0.9 % Sodium Chloride Flush 3 ML SYRINGE IVFLUSH ×3 (08:57→23:40)
[2024-08-09] MEDS: Chlorhexidine Gluc Oral Rinse 15 ML MOUTHWASH BUCCAL ×3 (09:38→20:10)
--- NOTE | 2024-08-09 11:18 | PM.CCPN ---
Subjective Subjective Date of Service: 08/09/24 Critical Care Time (minutes): 35 Comment: Continues to be on ventilator support, ventilator setting slowly improving On Levophed for vasopressor support Off paralytics, on propofol for sedation Physical Exam Vital Signs: Vital Signs: Last Vital Signs Temp 98.2 F 08/09/24 11:00 Pulse 95 08/09/24 11:00 Resp 25 H 08/09/24 11:00 BP 120/50 L 08/09/24 11:00 Pulse Ox 92 08/09/24 11:00 O2 Del Method Mechanical Ventil ation 08/09/24 11:00 O2 Flow Rate 4 08/08/24 17:00 FiO2 50 08/09/24 11:06 BMI result Body Mass Index 28.8 General: acute distress, ill appearing and tired appearing Nutritional Appearance: well nourished and overweight Eyes: appearance normal, both eyes and all related structures; Alignment and Position: alignment normal and position normal Neck: No lymphadenopathy, no thyromegaly Resp: bilateral air entry equal, occasional added sounds heard bilaterally Cardio: Regular rate, regular rhythm; Heart sounds: S1 normal heart sound present and S2 normal heart sound present GI: soft, nontender, no guarding, no hepatosplenomegaly : bladder normal to inspection, bladder normal to palpation, no renal angle tenderness Skin: no rashes or lesions noted and elasticity normal Neuro: Sedated, not following any commands, no focal deficits Objective Data Labs 08/09/24 04:35 08/09/24 04:35 Labs: Laboratory Results - last 24 hr 08/08/24 08/09/24 08/09/24 20:50 04:33 04:35 WBC 25.6 H RBC 2.02 L Hgb 6.3 L* Hct 18.5 L* MCV 91.6 MCH 31.2 MCHC 34.1 RDW 16.7 H Plt Count 203 MPV 10.9 Immature Gran % (Auto) 3.5 H Neut % (Auto) 66.5 Lymph % (Auto) 14.0 L [place] % (Auto) 11.5 H Eos % (Auto) 3.4 Baso % (Auto) 1.1 Lymph # (Auto) 3.6 [place] # (Auto) 2.9 H Eos # (Auto) 0.9 H Baso # (Auto) 0.3 H Abs Immat Gran (auto) 0.90 H Absolute Neuts (auto) 17.0 H Absolute Nucleated RBC 0.240 H Nucleated RBC % (auto) 0.9 H Smear Tech's Comments VERIFIED VBG pH 7.36 VBG pCO2 38 VBG pO2 67 VBG HCO3 22 VBG O2 Saturation 91.0 VBG Base Excess -2.8 Sodium 140 142 Potassium 2.6 L* 3.5 D Chloride 104 107 Carbon Dioxide 22 22 Anion Gap 17 17 BUN 88 H 86 H Creatinine 2.36 H 2.38 H Estim Creat Clear Calc 49.0 48.6 Estimated GFR 31 31 Random Glucose 136 H 131 H Calcium 8.1 L 8.5 Phosphorus 5.5 H Magnesium 2.2 Total Bilirubin 8.4 H 8.1 H AST 109 H 113 H ALT 23 24 Alkaline Phosphatase 151 H 182 H Total Protein 6.1 L 6.4 L Albumin 3.0 L 3.4 L Blood Type Antibody Screen Crossmatch 08/09/24 05:05 WBC RBC Hgb Hct MCV MCH MCHC RDW Plt Count MPV Immature Gran % (Auto) Neut % (Auto) Lymph % (Auto) [place] % (Auto) Eos % (Auto) Baso % (Auto) Lymph # (Auto) [place] # (Auto) Eos # (Auto) Baso # (Auto) Abs Immat Gran (auto) Absolute Neuts (auto) Absolute Nucleated RBC Nucleated RBC % (auto) Smear Tech's Comments VBG pH VBG pCO2 VBG pO2 VBG HCO3 VBG O2 Saturation VBG Base Excess Sodium Potassium Chloride Carbon Dioxide Anion Gap BUN Creatinine Estim Creat Clear Calc Estimated GFR Random Glucose Calcium Phosphorus Magnesium Total Bilirubin AST ALT Alkaline Phosphatase Total Protein Albumin Blood Type A Positive Antibody Screen NEGATIVE Crossmatch See Detail Microbiology Microbiology Results: Microbiology 08/08/24 10:25 Bronch Lll Gram Stain - Final 08/08/24 10:25 Bronch Lll Routine Culture - Preliminary Culture in progress. 08/06/24 13:22 Ascites Fluid Gram Stain - Final 08/06/24 13:22 Ascites Fluid Routine Culture - Final No growth after 2 days 08/06/24 13:22 Ascites Fluid Anaerobic Culture - Preliminary No growth to date. 08/06/24 11:03 Bronch Tube 2 Gram Stain - Final 08/06/24 11:03 Bronch Tube 2 - Final No growth after 2 days 08/06/24 11:03 Bronch Tube 1 Gram Stain - Final 08/06/24 11:03 Bronch Tube 1 - Final No growth after 2 days 08/04/24 15:02 Blood - Venous Blood Culture - Preliminary No growth after 48 hours. 08/04/24 14:15 Blood - Venous Blood Culture - Preliminary No growth after 48 hours. 08/04/24 10:27 Tracheal Aspirate Gram Stain - Final 08/04/24 10:27 Tracheal Aspirate Sputum Culture - Final 07/31/24 11:37 Ascites Fluid Gram Stain - Final 07/31/24 11:37 Ascites Fluid Anaerobic Culture - Final NO GROWTH AFTER 5 DAYS 07/31/24 11:37 Ascites Fluid Body Fluid Culture - Final No growth after 2 days 07/30/24 10:45 Blood - Venous Blood Culture - Final No growth after 5 days. 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 On ER evaluation patient in acute liver failure with elevated bilirubin, INR, transaminases, also acute blood loss anemia with initial hemoglobin of 5.6, started on IV fluid and blood product support, also phenobarbital protocol, IV PPI, IV octreotide, empiric ceftriaxone, and admitted to the intensive care unit. Status post EGD 07/31/2024 with no active bleeding noted, but underlying nonbleeding varices and esophageal ulcer, remained intubated at the end of the procedure and transferred back to the intensive care unit with high FiO2 support requirements. His ICU course has been very much complicated with vent dyssynchrony, bilateral lung infiltrates needing very high oxygen requirements 100% for few days that is slowly improved with high PEEPs. He is paralyzed with Nimbex for vent dyssynchrony; bronchoscopy showed significant yellowish and brownish colored thin liquid out from both the lungs. Chest x-ray on 08/08/2024 showed a left lower lobe collapse, repeat bronchoscopy showed thick and slimy secretions completely clogging the left main and segmental bronchus which was cleared following which his oxygenation has improved. Paralytics has been discontinued. Neuro: Acute encephalopathy possibly due to metabolic encephalopathy and hepatic encephalopathy Ammonia 97 has p.o. lactulose q.4 hours stool output is about On propofol for sedation, as needed fentanyl for analgesia; Nimbex has been discontinued since yesterday Close neurological status monitoring in the ICU every hour Cardiac: Blood pressure is on the lower side due to cirrhotic physiology and positive pressure ventilation, currently on levophed support titrate to keep MAP above 65mmHg Respiratory: Acute hypoxemic respiratory failure due to possibly aspiration pneumonia versus TRALI as required multiple blood transfusions. Currently on ventilator support On PRVC mode FiO2 down to 40%, TV 350, PEEP 8, rate 20. When tried to down titrate the PEEP patient desaturated quickly so peep left at 8 Peak pressures and plateau pressures are under the curve Ventilator management bundle with head end elevation, aspiration precaution, chlorhexidine mouthwash, daily awakening trials, daily spontaneous breathing trials No significant pleural effusions on bedside ultrasound, diffuse B-lines seen along with densely consolidated lung Underwent bronchoscopy 2 times, 2nd time showed thick slimy secretions obstructing the left main and upper and lower lobe bronchus which was cleared following which his oxygenation improved GI: Decompensated liver cirrhosis: Has decompensated liver cirrhosis with significant ascites, hepatic encephalopathy, variceal phenomenon His last drink was about 2 weeks prior to admission to the hospital, has private insurance, father is his next of kin and support. Once his ventilator support improves we will try calling transplant center to see if they are willing to consider him as a transplant candidate. Continue lactulose q.4 hours lactulose enema for the management of hepatic encephalopathy Underwent paracentesis on with 1.7 L fluid removal No evidence of SBP on paracentesis tube feeds at 30cc/hr Renal: Acute kidney injury possibly secondary to ATN from sudden drop in hemoglobin. Creatinine slightly improved down to 2.38 this morning, no indication for renal replacement therapy Fluid balance net-1500mL, continue Bumex drip Bedside echo showed dilated IVC 2.3 cms but this might be partially affected from very high PEEP We will closely monitor I's and O's Avoid nephrotoxic medications Acute hypokalemia: potassium 2.8, receiving multiple doses of KCl replacement secondary to diuresis Mg normal We will aggressively replete potassium Heme: Acute blood loss anemia: Secondary to GI bleed, hemoglobin dropped to 6.3 this morning. We will change pantoprazole drip to 40 mg b.i.d., continue octreotide drip Upper GI endoscopy showed nonbleeding varices and an esophageal ulcer Received 7 units of PRBC, 3 units of FFP and 1 unit of platelets so far Endocrine: Blood sugars under control Sliding scale insulin as needed Infectious disease: Pancultures remained negative so far WBC count trending down Continue cefepime for bilateral pneumonia Pending cultures from bronchoscopy MRSA needs negative Musculoskeletal: Decubitus ulcer in coccyx wound culture consulted. Lines: TLC placed on 08/06/2024 no Cruz Prophylaxis: SCD, pantoprazole Critical care time spent is about 35 minutes on managing this complex and critically ill patient with multiple organ failures including acute encephalopathy, respiratory failure, shock on vasopressor support, acute kidney injury. The time spent is mainly on close hemodynamic monitoring, ventilator management, sedation management, vasopressor management, review of labs and images at this time is excluding any procedural time Quality Stroke Does the patient have a stroke diagnosis?: No VTE Prior VTE?: No VTE Risk Level:: Medical - moderate - high VTE Device Contraindication: N/A - Device Ordered VTE Drug Contraindication: Treatment Not Indicated
[2024-08-09 11:28] LABS: Hematocrit 21.4 % (42.0-52.0); Hemoglobin 7.3 g/dl (14.0-18.0)
[2024-08-09] MEDS: Norepinephrine Bitartrate/D5W 8 MG/250 ML PLAST..BAG 31.93 MG IVCONT (14:50)
[2024-08-09] MEDS: Pantoprazole Sodium 40 MG/10 ML VIAL IVPUSH (16:07)
[2024-08-09] MEDS: dexmedeTOMIDidine HCL/NS 400 MCG/100 ML INFUS..BTL 23.4 MCG IVCONT (22:07)
[2024-08-10] VITALS (34 sets, daily range): BP systolic 109–136; BP diastolic 47–68; PULSE 67–99; RESP 18–25; TEMP 34.1–38.2; O2SAT 93–100; BMI 26.5
[2024-08-10] MEDS: Lactulose 20 GM/30 ML SOLUTION 30 GM PO ×6 (00:36→20:53)
[2024-08-10] MEDS: dexmedeTOMIDidine HCL/NS 400 MCG/100 ML INFUS..BTL 23.4 MCG IVCONT ×2 (01:23→05:31)
[2024-08-10] MEDS: Norepinephrine Bitartrate/D5W 8 MG/250 ML PLAST..BAG 17.74 MG IVCONT (01:58)
[2024-08-10] MEDS: Octreotide Acetate 500 MCG in 0.9 % Sodium Chloride 500 ML 50.1 MCG IVCONT ×2 (03:44→14:21)
[2024-08-10] MEDS: cefEPime HCl/D5W 2 GM/50 ML PIGGYBACK IV ×2 (04:35→17:50)
[2024-08-10 04:45] LABS: VBG Base Excess 4.6 mmol/L; VBG HCO3 27 mmol/L (22-26); VBG pCO2 31 mmHg; VBG pH 7.54 (7.32-7.43); VBG pO2 54 mmHg
[2024-08-10 04:57] LABS: Venous Blood Gas Refer to POC result
[2024-08-10] MEDS: Pantoprazole Sodium 40 MG/10 ML VIAL IVPUSH ×2 (05:31→17:50)
[2024-08-10 05:43] LABS: Basophils Absolute Auto 0.3 X10*3/uL (0.0-0.2); Basophils Percent Auto 1.4 % (0-2); Eosinophils Absolute Auto 0.8 X10*3/uL (0.0-0.4); Eosinophils Percent Auto 3.7 % (0-4); Hemoglobin 7.1 g/dl (14.0-18.0); Imm Gran Abs Auto 0.54 X10*3/uL (0.00-0.03); Imm Gran Pct Auto 2.5 % (0.0-0.4); Lymphocytes Percent Auto 14.2 % (20-40); MANUAL DIFF FLAG SCAN; Mean Corpuscular HGB Conc 34.1 g/dl (31.0-36.0); Mean Corpuscular Hemoglobin 30.5 pg (27.0-33.0); Mean Corpuscular Volume 89.3 fL (80.0-98.0); Mean Platelet Volume 11.2 fL (9.4-12.4); Monocytes Absolute Auto 2.3 X10*3/uL (0.1-1.2); Monocytes Percent Auto 10.5 % (2-11); NRBC Pct Auto 0.7 /100WBC (0.0-0.2); Neutrophils Absolute Auto 14.5 x10*3/uL (2.0-8.3); Neutrophils Percent Auto 67.7 % (45-73); Platelet Count 185 X10*3/uL (160-400); Red Blood Count 2.33 X10*6/uL (4.60-5.80); Red Cell Distribution Width 16.3 % (11.0-16.0); SCAN SMEAR FLAG 1; White Blood Count 21.4 X10*3/uL (4.8-10.8)
[2024-08-10 05:45] LABS: Hematocrit 20.8 % (42.0-52.0)
[2024-08-10 06:01] LABS: Alanine Aminotransferase 30 U/L (0-40); Albumin Level 3.1 g/dL (3.5-5.0); Alkaline Phosphatase 180 U/L (39-117); Anion Gap 18 (12-20); Aspartate Amino Transferase 116 U/L (5-37); Bilirubin Total 9.3 mg/dL (0.0-1.0); Blood Urea Nitrogen 80 mg/dL (9-16); Calcium 8.6 mg/dL (8.4-10.2); Carbon Dioxide 26 mmol/L (22-29); Chloride 109 mmol/L (96-108); Creatinine Clr Calc Pharmacy 47.6; Estimated Glomerular Filt Rate 33; Glucose Random 133 mg/dL (60-115); Phosphorus 2.3 mg/dL (2.7-4.5); Potassium 1.9 mmol/L (3.3-5.1); Sodium 151 mmol/L (135-145); Total Protein 6.3 g/dL (6.5-8.0)
[2024-08-10 06:09] LABS: SLIDE REVIEW VERIFIED
[2024-08-10] MEDS: Potassium Chloride/H20 40 MEQ/100 ML PIGGYBACK 50 MEQ IV ×4 (06:26→12:45)
[2024-08-10] MEDS: Potassium Phosphate/NS 15 MMOL/250 ML PLAST..BAG 62.5 MMOL IV ×2 (08:43→22:45)
[2024-08-10] MEDS: Potassium Chloride Packet 20 MEQ PACKET 40 MEQ PO (08:57)
[2024-08-10] MEDS: 0.9 % Sodium Chloride Flush 3 ML SYRINGE IVFLUSH ×2 (08:57→15:15)
[2024-08-10] MEDS: Chlorhexidine Gluc Oral Rinse 15 ML MOUTHWASH BUCCAL ×3 (08:58→20:16)
[2024-08-10] MEDS: dexmedeTOMIDidine HCL/NS 400 MCG/100 ML INFUS..BTL 18.72 MCG IVCONT ×2 (10:09→15:06)
--- NOTE | 2024-08-10 11:05 | P.PNCC_ITS ---
Subjective Subjective Date of Service: 08/10/24 Critical Care Time (minutes): 40 Comment: Continues to be on ventilator support On Precedex for anxiolysis On Levophed for vasopressor support dose likely increasing Potassium decreased to 1.9 so Bumex drip was stopped this morning Physical Exam 2 Vital Signs: Vital Signs: Last Vital Signs Temp 99.9 F 08/10/24 10:00 Pulse 93 08/10/24 10:00 Resp 20 08/10/24 10:00 BP 126/64 08/10/24 10:00 Pulse Ox 95 08/10/24 10:00 O2 Del Method Mechanical Ventil ation 08/10/24 10:00 O2 Flow Rate 4 08/08/24 17:00 FiO2 40 08/10/24 10:00 BMI result Body Mass Index 26.5 General: acute distress, ill appearing and tired appearing Nutritional Appearance: well nourished and overweight Eyes: appearance normal, both eyes and all related structures; Alignment and Position: alignment normal and position normal Neck: No lymphadenopathy, no thyromegaly Resp: bilateral air entry equal, bilateral crackles heard Cardio: Regular rate, regular rhythm; Heart sounds: S1 normal heart sound present and S2 normal heart sound present GI: soft, nontender, no guarding, no hepatosplenomegaly : bladder normal to inspection, bladder normal to palpation, no renal angle tenderness Skin: no rashes or lesions noted and elasticity normal Neuro: Drowsy, not following commands no focal deficits Objective Data Labs 08/10/24 04:31 08/10/24 04:31 Labs: Laboratory Results - last 24 hr 08/09/24 08/10/24 08/10/24 11:05 04:31 04:35 WBC 21.4 H RBC 2.33 L Hgb 7.3 L 7.1 L Hct 21.4 L 20.8 L* MCV 89.3 MCH 30.5 MCHC 34.1 RDW 16.3 H Plt Count 185 MPV 11.2 Immature Gran % (Auto) 2.5 H Neut % (Auto) 67.7 Lymph % (Auto) 14.2 L [place] % (Auto) 10.5 Eos % (Auto) 3.7 Baso % (Auto) 1.4 Lymph # (Auto) 3.0 [place] # (Auto) 2.3 H Eos # (Auto) 0.8 H Baso # (Auto) 0.3 H Abs Immat Gran (auto) 0.54 H Absolute Neuts (auto) 14.5 H Absolute Nucleated RBC 0.140 H Nucleated RBC % (auto) 0.7 H Smear Tech's Comments VERIFIED VBG pH 7.54 H VBG pCO2 31 VBG pO2 54 VBG HCO3 27 H VBG O2 Saturation 85.0 VBG Base Excess 4.6 Sodium 151 H Potassium 1.9 L* D Chloride 109 H Carbon Dioxide 26 Anion Gap 18 BUN 80 H Creatinine 2.24 H Estim Creat Clear Calc 47.6 Estimated GFR 33 Random Glucose 133 H Calcium 8.6 Phosphorus 2.3 L Magnesium 2.0 Total Bilirubin 9.3 H AST 116 H ALT 30 Alkaline Phosphatase 180 H Total Protein 6.3 L Albumin 3.1 L Microbiology Microbiology Results: Microbiology 08/08/24 10:25 Bronch Lll Gram Stain - Final 08/08/24 10:25 Bronch Lll Routine Culture - Preliminary Culture in progress. 08/04/24 15:02 Blood - Venous Blood Culture - Final No growth after 5 days. 08/04/24 14:15 Blood - Venous Blood Culture - Final No growth after 5 days. 08/06/24 13:22 Ascites Fluid Gram Stain - Final 08/06/24 13:22 Ascites Fluid Routine Culture - Final No growth after 2 days 08/06/24 13:22 Ascites Fluid Anaerobic Culture - Preliminary No growth to date. 08/06/24 11:03 Bronch Tube 2 Gram Stain - Final 08/06/24 11:03 Bronch Tube 2 - Final No growth after 2 days 08/06/24 11:03 Bronch Tube 1 Gram Stain - Final 08/06/24 11:03 Bronch Tube 1 - Final No growth after 2 days 08/04/24 10:27 Tracheal Aspirate Gram Stain - Final 08/04/24 10:27 Tracheal Aspirate Sputum Culture - Final 07/31/24 11:37 Ascites Fluid Gram Stain - Final 07/31/24 11:37 Ascites Fluid Anaerobic Culture - Final NO GROWTH AFTER 5 DAYS 07/31/24 11:37 Ascites Fluid Body Fluid Culture - Final No growth after 2 days 07/30/24 10:45 Blood - Venous Blood Culture - Final No growth after 5 days. 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 On ER evaluation patient in acute liver failure with elevated bilirubin, INR, transaminases, also acute blood loss anemia with initial hemoglobin of 5.6, started on IV fluid and blood product support, also phenobarbital protocol, IV PPI, IV octreotide, empiric ceftriaxone, and admitted to the intensive care unit. Status post EGD 07/31/2024 with no active bleeding noted, but underlying nonbleeding varices and esophageal ulcer, remained intubated at the end of the procedure and transferred back to the intensive care unit with high FiO2 support requirements. His ICU course has been very much complicated with vent dyssynchrony, bilateral lung infiltrates needing very high oxygen requirements 100% for few days that is slowly improved with high PEEPs. He is paralyzed with Nimbex for vent dyssynchrony; bronchoscopy showed significant yellowish and brownish colored thin liquid out from both the lungs. Chest x-ray on 08/08/2024 showed a left lower lobe collapse, repeat bronchoscopy showed thick and slimy secretions completely clogging the left main and segmental bronchus which was cleared following which his oxygenation has improved. Paralytics has been discontinued. Neuro: Acute encephalopathy possibly due to metabolic encephalopathy and hepatic encephalopathy Ammonia 97 has p.o. lactulose q.4 hours stool output is about, we will repeat an ammonia tomorrow in the morning Nimbex discontinued for 48 hours, propofol discontinued since yesterday morning. Continues to have poor mentation on Precedex Close neurological status monitoring in the ICU every hour Cardiac: Blood pressure is on the lower side due to cirrhotic physiology and positive pressure ventilation, currently on levophed support titrate to keep MAP above 65mmHg Respiratory: Acute hypoxemic respiratory failure due to possibly aspiration pneumonia versus TRALI as required multiple blood transfusions. Currently on ventilator support On PRVC mode FiO2 down to 40%, TV 350, PEEP 8, rate 20. When tried to down titrate the PEEP patient desaturated quickly so peep left at 8 Peak pressures and plateau pressures are under the curve Ventilator management bundle with head end elevation, aspiration precaution, chlorhexidine mouthwash, daily awakening trials, daily spontaneous breathing trials No significant pleural effusions on bedside ultrasound, diffuse B-lines seen along with densely consolidated lung Underwent bronchoscopy 2 times, 2nd time showed thick slimy secretions obstructing the left main and upper and lower lobe bronchus which was cleared following which his oxygenation improved GI: Decompensated liver cirrhosis: Has decompensated liver cirrhosis with significant ascites, hepatic encephalopathy, variceal phenomenon with a MELD score of 30 His last drink was about 2 weeks prior to admission to the hospital, has private insurance, father is his next of kin and support. Once his ventilator support improves we will try calling transplant center to see if they are willing to consider him as a transplant candidate. Called [facility] for potential evaluation for liver transplant candidacy, waiting on the response (update: doesnt accept his health insurance for liver transplant). Calling [facility] for evaluation. Continue lactulose q.4 hours lactulose enema for the management of hepatic encephalopathy Underwent paracentesis on with 1.7 L fluid removal No evidence of SBP on paracentesis tube feeds at 30cc/hr Renal: Acute kidney injury possibly secondary to ATN from sudden drop in hemoglobin. Creatinine slightly improved down to 2.24this morning, trending down words for the past few days Fluid balance net-1500mL, continue Bumex drip Bedside echo showed dilated IVC 2.3 cms but this might be partially affected from very high PEEP We will closely monitor I's and O's Avoid nephrotoxic medications Acute hypokalemia: potassium 1.9, receiving multiple doses of KCl replacement secondary to diuresis and large volume stool output. Mg normal We will aggressively replete potassium and repeat BMP. Heme: Acute blood loss anemia: Secondary to GI bleed, hemoglobin dropped to 6.3 this morning. We will change pantoprazole drip to 40 mg b.i.d., continue octreotide drip Upper GI endoscopy showed nonbleeding varices and an esophageal ulcer Received 7 units of PRBC, 3 units of FFP and 1 unit of platelets so far Endocrine: Blood sugars under control Sliding scale insulin as needed Infectious disease: Pancultures remained negative so far WBC count trending down Continue cefepime for bilateral pneumonia Pending cultures from bronchoscopy MRSA needs negative Musculoskeletal: Decubitus ulcer in coccyx wound culture consulted. Lines: TLC placed on 08/06/2024 no Cruz Prophylaxis: SCD, pantoprazole total critical care time spent is about 40 minutes on ventilator management, sedation management, vasopressor management, close hemodynamic monitoring, lab reviews. Quality Stroke Does the patient have a stroke diagnosis?: No VTE Prior VTE?: No VTE Risk Level:: Medical - moderate - high VTE Device Contraindication: N/A - Device Ordered VTE Drug Contraindication: Treatment Not Indicated
[2024-08-10 11:41] LABS: Hematocrit 21.3 % (42.0-52.0); Hemoglobin 7.1 g/dl (14.0-18.0)
[2024-08-10] MEDS: Albumin Human 25 % 100 ML IV ×2 (11:58→13:29)
--- NOTE | 2024-08-10 12:23 | P.PNCC_ITS ---
Physical Exam 2 Vital Signs: Vital Signs: Last Vital Signs Temp 99.5 F 08/10/24 12:00 Pulse 86 08/10/24 12:04 Resp 20 08/10/24 12:00 BP 128/65 08/10/24 12:04 Pulse Ox 96 08/10/24 12:00 O2 Del Method Mechanical Ventil ation 08/10/24 12:00 O2 Flow Rate 4 08/08/24 17:00 FiO2 40 08/10/24 12:00 BMI result Body Mass Index 26.5 Objective Data Labs 08/10/24 11:10 08/10/24 04:31 Labs: Laboratory Results - last 24 hr 08/10/24 08/10/24 08/10/24 04:31 04:35 11:10 WBC 21.4 H RBC 2.33 L Hgb 7.1 L 7.1 L Hct 20.8 L* 21.3 L MCV 89.3 MCH 30.5 MCHC 34.1 RDW 16.3 H Plt Count 185 MPV 11.2 Immature Gran % (Auto) 2.5 H Neut % (Auto) 67.7 Lymph % (Auto) 14.2 L [place] % (Auto) 10.5 Eos % (Auto) 3.7 Baso % (Auto) 1.4 Lymph # (Auto) 3.0 [place] # (Auto) 2.3 H Eos # (Auto) 0.8 H Baso # (Auto) 0.3 H Abs Immat Gran (auto) 0.54 H Absolute Neuts (auto) 14.5 H Absolute Nucleated RBC 0.140 H Nucleated RBC % (auto) 0.7 H Smear Tech's Comments VERIFIED VBG pH 7.54 H VBG pCO2 31 VBG pO2 54 VBG HCO3 27 H VBG O2 Saturation 85.0 VBG Base Excess 4.6 Sodium 151 H Potassium 1.9 L* D Chloride 109 H Carbon Dioxide 26 Anion Gap 18 BUN 80 H Creatinine 2.24 H Estim Creat Clear Calc 47.6 Estimated GFR 33 Random Glucose 133 H Calcium 8.6 Phosphorus 2.3 L Magnesium 2.0 Total Bilirubin 9.3 H AST 116 H ALT 30 Alkaline Phosphatase 180 H Total Protein 6.3 L Albumin 3.1 L Microbiology Microbiology Results: Microbiology 08/08/24 10:25 Bronch Lll Gram Stain - Final 08/08/24 10:25 Bronch Lll Routine Culture - Preliminary Culture in progress. 08/04/24 15:02 Blood - Venous Blood Culture - Final No growth after 5 days. 08/04/24 14:15 Blood - Venous Blood Culture - Final No growth after 5 days. 08/06/24 13:22 Ascites Fluid Gram Stain - Final 08/06/24 13:22 Ascites Fluid Routine Culture - Final No growth after 2 days 08/06/24 13:22 Ascites Fluid Anaerobic Culture - Preliminary No growth to date. 08/06/24 11:03 Bronch Tube 2 Gram Stain - Final 08/06/24 11:03 Bronch Tube 2 - Final No growth after 2 days 08/06/24 11:03 Bronch Tube 1 Gram Stain - Final 08/06/24 11:03 Bronch Tube 1 - Final No growth after 2 days 08/04/24 10:27 Tracheal Aspirate Gram Stain - Final 08/04/24 10:27 Tracheal Aspirate Sputum Culture - Final 07/31/24 11:37 Ascites Fluid Gram Stain - Final 07/31/24 11:37 Ascites Fluid Anaerobic Culture - Final NO GROWTH AFTER 5 DAYS 07/31/24 11:37 Ascites Fluid Body Fluid Culture - Final No growth after 2 days 07/30/24 10:45 Blood - Venous Blood Culture - Final No growth after 5 days. 07/30/24 11:07 Blood - Venous Blood Culture - Final Coag negative Staphylococcus Quality Stroke Does the patient have a stroke diagnosis?: No VTE Prior VTE?: No VTE Risk Level:: Medical - moderate - high VTE Device Contraindication: N/A - Device Ordered VTE Drug Contraindication: Treatment Not Indicated
[2024-08-10 12:45] LABS: Anion Gap 21 (12-20); Blood Urea Nitrogen 75 mg/dL (9-16); Calcium 8.8 mg/dL (8.4-10.2); Carbon Dioxide 26 mmol/L (22-29); Chloride 111 mmol/L (96-108); Creatinine Clr Calc Pharmacy 49.8; Estimated Glomerular Filt Rate 35; Glucose Random 158 mg/dL (60-115); Sodium 155 mmol/L (135-145)
[2024-08-10] MEDS: Dextrose 5 % 1,000 ML 75 ML IVCONT (15:07)
[2024-08-10] MEDS: Potassium Chloride/H20 40 MEQ/100 ML PIGGYBACK 100 MEQ IV (16:09)
[2024-08-10] MEDS: Norepinephrine Bitartrate/D5W 8 MG/250 ML PLAST..BAG 10.64 MG IVCONT (16:10)
[2024-08-10 18:45] LABS: Anion Gap 17 (12-20); Blood Urea Nitrogen 73 mg/dL (9-16); Calcium 8.6 mg/dL (8.4-10.2); Carbon Dioxide 26 mmol/L (22-29); Chloride 115 mmol/L (96-108); Creatinine Clr Calc Pharmacy 51.7; Estimated Glomerular Filt Rate 36; Glucose Random 160 mg/dL (60-115); Sodium 155 mmol/L (135-145)
[2024-08-10] MEDS: dexmedeTOMIDidine HCL/NS 400 MCG/100 ML INFUS..BTL 14.04 MCG IVCONT (20:16)
[2024-08-10 21:20] LABS: Alanine Aminotransferase 32 U/L (0-40); Albumin Level 3.3 g/dL (3.5-5.0); Alkaline Phosphatase 163 U/L (39-117); Anion Gap 17 (12-20); Aspartate Amino Transferase 107 U/L (5-37); Bilirubin Total 10.3 mg/dL (0.0-1.0); Blood Urea Nitrogen 70 mg/dL (9-16); Calcium 9.2 mg/dL (8.4-10.2); Carbon Dioxide 25 mmol/L (22-29); Chloride 117 mmol/L (96-108); Creatinine Clr Calc Pharmacy 50.7; Estimated Glomerular Filt Rate 36; Glucose Random 148 mg/dL (60-115); Potassium 3.4 mmol/L (3.3-5.1); Sodium 156 mmol/L (135-145); Total Protein 6.4 g/dL (6.5-8.0)
[2024-08-10 21:25] LABS: Hematocrit 19.6 % (42.0-52.0); Hemoglobin 6.6 g/dl (14.0-18.0)
[2024-08-10 21:55] LABS: Magnesium 1.9 mg/dL (1.6-2.6); Phosphorus 2.2 mg/dL (2.7-4.5)
[2024-08-11] VITALS (41 sets, daily range): BP systolic 111–145; BP diastolic 51–75; PULSE 65–99; RESP 13–22; TEMP 35–37.6; O2SAT 92–99; BMI 25.3
[2024-08-11] MEDS: Octreotide Acetate 500 MCG in 0.9 % Sodium Chloride 500 ML 50.1 MCG IVCONT ×3 (00:02→19:43)
[2024-08-11] MEDS: 0.9 % Sodium Chloride Flush 3 ML SYRINGE IVFLUSH ×3 (00:18→14:39)
[2024-08-11] MEDS: Lactulose 20 GM/30 ML SOLUTION 30 GM PO ×6 (01:06→20:08)
[2024-08-11] MEDS: Dextrose 5 % 1,000 ML 75 ML IVCONT ×2 (02:47→14:58)
[2024-08-11] MEDS: Potassium Phosphate/NS 15 MMOL/250 ML PLAST..BAG 62.5 MMOL IV (03:05)
[2024-08-11] MEDS: dexmedeTOMIDidine HCL/NS 400 MCG/100 ML INFUS..BTL 9.36 MCG IVCONT (03:10)
[2024-08-11] MEDS: cefEPime HCl/D5W 2 GM/50 ML PIGGYBACK IV (04:06)
[2024-08-11 04:51] LABS: VBG Base Excess 3.7 mmol/L; VBG HCO3 25 mmol/L (22-26); VBG pCO2 28 mmHg; VBG pH 7.56 (7.32-7.43); VBG pO2 48 mmHg
[2024-08-11 05:04] LABS: Venous Blood Gas Refer to POC result
[2024-08-11 05:22] LABS: Basophils Absolute Auto 0.3 X10*3/uL (0.0-0.2); Basophils Percent Auto 1.5 % (0-2); Eosinophils Absolute Auto 1.1 X10*3/uL (0.0-0.4); Eosinophils Percent Auto 4.8 % (0-4); Hematocrit 22.8 % (42.0-52.0); Hemoglobin 7.8 g/dl (14.0-18.0); Imm Gran Abs Auto 0.48 X10*3/uL (0.00-0.03); Imm Gran Pct Auto 2.2 % (0.0-0.4); Lymphocytes Absolute Auto 2.7 X10*3/uL (1.2-4.9); Lymphocytes Percent Auto 12.4 % (20-40); MANUAL DIFF FLAG SCAN; Mean Corpuscular HGB Conc 34.2 g/dl (31.0-36.0); Mean Corpuscular Hemoglobin 30.2 pg (27.0-33.0); Mean Corpuscular Volume 88.4 fL (80.0-98.0); Mean Platelet Volume 11.5 fL (9.4-12.4); Monocytes Percent Auto 9.3 % (2-11); NRBC Pct Auto 0.5 /100WBC (0.0-0.2); Neutrophils Absolute Auto 15.4 x10*3/uL (2.0-8.3); Neutrophils Percent Auto 69.8 % (45-73); Platelet Count 126 X10*3/uL (160-400); Red Blood Count 2.58 X10*6/uL (4.60-5.80); SCAN SMEAR FLAG 1
[2024-08-11] MEDS: Pantoprazole Sodium 40 MG/10 ML VIAL IVPUSH ×2 (05:32→15:12)
[2024-08-11 05:38] LABS: Alanine Aminotransferase 28 U/L (0-40); Albumin Level 3.2 g/dL (3.5-5.0); Alkaline Phosphatase 164 U/L (39-117); Anion Gap 16 (12-20); Aspartate Amino Transferase 102 U/L (5-37); Bilirubin Total 10.3 mg/dL (0.0-1.0); Blood Urea Nitrogen 68 mg/dL (9-16); Calcium 8.8 mg/dL (8.4-10.2); Carbon Dioxide 24 mmol/L (22-29); Chloride 118 mmol/L (96-108); Creatinine Clr Calc Pharmacy 57.9; Estimated Glomerular Filt Rate 41; Glucose Random 147 mg/dL (60-115); Magnesium 1.8 mg/dL (1.6-2.6); Phosphorus 2.9 mg/dL (2.7-4.5); Potassium 3.2 mmol/L (3.3-5.1); Sodium 155 mmol/L (135-145); Total Protein 6.3 g/dL (6.5-8.0)
[2024-08-11 05:41] LABS: SLIDE REVIEW VERIFIED
--- NOTE | 2024-08-11 08:16 | ECG_ITS ---
Test Reason : ICU Evaluation Blood Pressure : / mmHG Vent. Rate : 077 BPM Atrial Rate : 077 BPM P-R Int : 160 ms QRS Dur : 104 ms QT Int : 416 ms P-R-T Axes : 047 055 -04 degrees QTc Int : 470 ms Normal sinus rhythm Normal ECG When compared with ECG of 30-JUL-2024 10:43, Premature supraventricular complexes are no longer Present QRS duration has decreased Referred By: Salma Chicas Electronically Signed By:ANCA FENG
--- NOTE | 2024-08-11 08:30 | P.PNCC_ITS ---
Subjective Subjective Date of Service: 08/11/24 Critical Care Time (minutes): 60 Physical Exam 2 Vital Signs: Vital Signs: Last Vital Signs Temp 99.3 F 08/11/24 07:00 Pulse 85 08/11/24 08:28 Resp 20 08/11/24 07:00 BP 114/52 L 08/11/24 08:28 Pulse Ox 97 08/11/24 07:49 O2 Del Method Mechanical Ventil ation 08/11/24 07:00 O2 Flow Rate 4 08/08/24 17:00 FiO2 30 08/11/24 08:01 BMI result Body Mass Index 25.3 Const: Other: intubated, minimally sedated; some appreciable spontaneous movement L foot; no appreciable response to verbal nor noxious stimulus; appreciable jaundice throughout General: no acute distress HEENT: Head: Yes normal to inspection, Yes normocephalic and Yes atraumatic Eyes: Other: appreciable scleral icterus Neck: Neck: Yes normal visual inspection, Yes full ROM, Yes trachea midline and Yes supple Chest: Chest palpation & inspection: normal inspection of the chest Resp: Other: some appreciable rhonchi throughout; no appreciable rales, wheezing Effort & Inspection: normal respiratory effort Cardio: Rate: regular rate Rhythm: regular rhythm GI: Other: appreciable distention, though compressible; appreciable stigmata of cirrhosis; no appreciable guarding, rebound : Other: some appreciable scrotal edema Skin: Other: appreciable jaundice Neuro: Other: as described above Extrem: Other: 1+ pitting edema bilateral upper extremi ties General: Yes normal to inspection and Yes capillary refill normal Psych: Other: unable to assess Objective Data Labs 08/11/24 04:59 08/11/24 04:59 Labs: Laboratory Results - last 24 hr 08/09/24 08/10/24 08/10/24 05:05 11:10 12:07 WBC RBC Hgb 7.1 L Hct 21.3 L MCV MCH MCHC RDW Plt Count MPV Immature Gran % (Auto) Neut % (Auto) Lymph % (Auto) [place] % (Auto) Eos % (Auto) Baso % (Auto) Lymph # (Auto) [place] # (Auto) Eos # (Auto) Baso # (Auto) Abs Immat Gran (auto) Absolute Neuts (auto) Absolute Nucleated RBC Nucleated RBC % (auto) Smear Tech's Comments VBG pH VBG pCO2 VBG pO2 VBG HCO3 VBG O2 Saturation VBG Base Excess Sodium 155 H Potassium 3.0 L D Chloride 111 H Carbon Dioxide 26 Anion Gap 21 H BUN 75 H Creatinine 2.14 H Estim Creat Clear Calc 49.8 Estimated GFR 35 Random Glucose 158 H Calcium 8.8 Phosphorus Magnesium Total Bilirubin AST ALT Alkaline Phosphatase Total Protein Albumin Blood Type A Positive Antibody Screen NEGATIVE Crossmatch See Detail 08/10/24 08/10/24 08/11/24 18:25 21:01 04:40 WBC RBC Hgb 6.6 L* Hct 19.6 L* MCV MCH MCHC RDW Plt Count MPV Immature Gran % (Auto) Neut % (Auto) Lymph % (Auto) [place] % (Auto) Eos % (Auto) Baso % (Auto) Lymph # (Auto) [place] # (Auto) Eos # (Auto) Baso # (Auto) Abs Immat Gran (auto) Absolute Neuts (auto) Absolute Nucleated RBC Nucleated RBC % (auto) Smear Tech's Comments VBG pH 7.56 H VBG pCO2 28 VBG pO2 48 VBG HCO3 25 VBG O2 Saturation 81.0 VBG Base Excess 3.7 Sodium 155 H 156 H Potassium 3.0 L 3.4 Chloride 115 H 117 H Carbon Dioxide 26 25 Anion Gap 17 17 BUN 73 H 70 H Creatinine 2.06 H 2.10 H Estim Creat Clear Calc 51.7 50.7 Estimated GFR 36 36 Random Glucose 160 H 148 H Calcium 8.6 9.2 D Phosphorus 2.2 L Magnesium 1.9 Total Bilirubin 10.3 H AST 107 H ALT 32 Alkaline Phosphatase 163 H Total Protein 6.4 L Albumin 3.3 L Blood Type Antibody Screen Crossmatch 08/11/24 04:59 WBC 22.0 H RBC 2.58 L Hgb 7.8 L Hct 22.8 L MCV 88.4 MCH 30.2 MCHC 34.2 RDW 17.0 H Plt Count 126 L D MPV 11.5 Immature Gran % (Auto) 2.2 H Neut % (Auto) 69.8 Lymph % (Auto) 12.4 L [place] % (Auto) 9.3 Eos % (Auto) 4.8 H Baso % (Auto) 1.5 Lymph # (Auto) 2.7 [place] # (Auto) 2.0 H Eos # (Auto) 1.1 H Baso # (Auto) 0.3 H Abs Immat Gran (auto) 0.48 H Absolute Neuts (auto) 15.4 H Absolute Nucleated RBC 0.110 H Nucleated RBC % (auto) 0.5 H Smear Tech's Comments VERIFIED VBG pH VBG pCO2 VBG pO2 VBG HCO3 VBG O2 Saturation VBG Base Excess Sodium 155 H Potassium 3.2 L Chloride 118 H Carbon Dioxide 24 Anion Gap 16 BUN 68 H Creatinine 1.84 H Estim Creat Clear Calc 57.9 Estimated GFR 41 Random Glucose 147 H Calcium 8.8 Phosphorus 2.9 Magnesium 1.8 Total Bilirubin 10.3 H AST 102 H ALT 28 Alkaline Phosphatase 164 H Total Protein 6.3 L Albumin 3.2 L Blood Type Antibody Screen Crossmatch Microbiology Microbiology Results: Microbiology 08/06/24 13:22 Ascites Fluid Gram Stain - Final 08/06/24 13:22 Ascites Fluid Routine Culture - Final No growth after 2 days 08/06/24 13:22 Ascites Fluid Anaerobic Culture - Preliminary No growth to date. 08/08/24 10:25 Bronch Lll Gram Stain - Final 08/08/24 10:25 Bronch Lll Routine Culture - Preliminary Culture in progress. 08/04/24 15:02 Blood - Venous Blood Culture - Final No growth after 5 days. 08/04/24 14:15 Blood - Venous Blood Culture - Final No growth after 5 days. 08/06/24 11:03 Bronch Tube 2 Gram Stain - Final 08/06/24 11:03 Bronch Tube 2 - Final No growth after 2 days 08/06/24 11:03 Bronch Tube 1 Gram Stain - Final 08/06/24 11:03 Bronch Tube 1 - Final No growth after 2 days 08/04/24 10:27 Tracheal Aspirate Gram Stain - Final 08/04/24 10:27 Tracheal Aspirate Sputum Culture - Final 07/31/24 11:37 Ascites Fluid Gram Stain - Final 07/31/24 11:37 Ascites Fluid Anaerobic Culture - Final NO GROWTH AFTER 5 DAYS 07/31/24 11:37 Ascites Fluid Body Fluid Culture - Final No growth after 2 days 07/30/24 10:45 Blood - Venous Blood Culture - Final No growth after 5 days. 07/30/24 11:07 Blood - Venous Blood Culture - Final Coag negative Staphylococcus Progress Note: A&P Assessment and plan (1) Acute hypoxic respiratory failure: Status: Acute (2) Gastrointestinal bleed: Status: Acute (3) Decompensated cirrhosis: Status: Acute Plan Patient is a 39 Y M w/ alcohol use disorder c/b cirrhosis, initially presenting on 07/30 w/ melena, admitted ICU for management of lower GI bleeding, alcohol withdrawal, and decompensated cirrhosis; EGD performed on 07/31 w/o appreciable source of bleeding, though demonstrating variceal bleeding; EGD c/b persistent hypoxia, remained intubated; ICU course c/b persistent acute hypoxic respiratory failure, continued melena, and persistent encephalopathy N: persistent encephalopathy, likely multi-factorial, hepatic and toxic- metabolic; lactulose, rifaximin; dexmedetomidine gtt, wean as tolerated CV: hypotension, likley multi-factorial, hemorrhage and vasoplegia; norepinephrine gtt, wean as tolerated R: acute hypoxic respiratory failure, likely d/t volume overload, improving GI: alcohol use disorder c/b decompensated cirrhosis, esophageal varices; octreotide gtt, transfusions as needed, lactulose, rifaximin; of note, transfer requests to [facility] and [facility], both not accepting patient insurance; tube feeds : acute renal insufficiency, improving; bumetanide gtt for volume management; to closely monitor/replete electrolytes H: acute blood loss anemia d/t GI bleed; octreotide gtt, pantoprazole, transfusions as needed E: no acute issues ID: possible pneumonia, empiric zosyn P: alcohol use disorder Quality Stroke Does the patient have a stroke diagnosis?: No VTE Prior VTE?: No VTE Risk Level:: Medical - moderate - high VTE Device Contraindication: N/A - Device Ordered VTE Drug Contraindication: Treatment Not Tolerated
[2024-08-11 09:07] LABS: Ammonia 52 umol/L (13-55)
[2024-08-11] MEDS: Cyanocobalamin (Vitamin B-12) 1,000 MCG TABLET 1000 MCG PO (09:17)
[2024-08-11] MEDS: Chlorhexidine Gluc Oral Rinse 15 ML MOUTHWASH BUCCAL ×3 (09:17→20:08)
[2024-08-11] MEDS: rifAXIMin 550 MG TABLET PO ×3 (09:17→20:09)
[2024-08-11] MEDS: Bumetanide 25 MG in Container,Empty 0 ML 4 MG IVCONT (09:17)
[2024-08-11 09:18] LABS: INTERNATIONAL NORM RATIO 2.3 (0.9-1.1); Prothrombin Time 26.7 SEC (10.9-12.4)
[2024-08-11] MEDS: Folic Acid 1 MG in 0.9 % Sodium Chloride 50 ML 100.4 MG IV (09:24)
[2024-08-11] MEDS: Piperacillin Sodium/Tazobactam 4.5 GM in 0.9 % Sodium Chloride 100 ML IV ×3 (09:25→20:05)
--- NOTE | 2024-08-11 09:43 | MHC.CLN ---
F/U PT REMAINS INTUBATED REVIEWED LABS TF NEPRO AT MAX GOAL RATE 30ML/HR PROVIDES 1296KCALS, 58G PROTEIN (.7G/KG), 942ML FREE WATER FROM FORMULA RECOMMEND INCREASING TF NEPRO AT MAX GOAL RATE 45ML/HR WITH 240ML FREE WATER FLUSH Q 6 HRS TO PROVIDE 1944KCALS (23KCALS/KG BASED ON CMW), 87G PROTEIN (1.1G/KG), 1745ML TOTLA WATER FROM FORMULA AND FLUSHES (22ML/KG) MONITOR TOLERANCE AND LYTES
[2024-08-11 10:50] LABS: Free T4 (Free Thyroxine) 0.47 ng/dL (0.71-1.85)
[2024-08-11] MEDS: Levothyroxine Sodium 100 MCG/5 ML VIAL 75 MCG IVPUSH (12:36)
[2024-08-11 13:54] LABS: Anion Gap 15 (12-20); Blood Urea Nitrogen 66 mg/dL (9-16); Calcium 8.8 mg/dL (8.4-10.2); Carbon Dioxide 25 mmol/L (22-29); Chloride 118 mmol/L (96-108); Creatinine Clr Calc Pharmacy 49.6; Estimated Glomerular Filt Rate 35; Glucose Random 145 mg/dL (60-115); Magnesium 1.8 mg/dL (1.6-2.6); Phosphorus 2.8 mg/dL (2.7-4.5); Potassium 2.8 mmol/L (3.3-5.1); Sodium 155 mmol/L (135-145)
[2024-08-11] MEDS: Potassium Chloride/H20 40 MEQ/100 ML PIGGYBACK 50 MEQ IV ×2 (14:26→17:42)
[2024-08-11] MEDS: Midazolam HCl/PF 2 MG/2 ML VIAL 4 MG IVPUSH ×2 (15:20→16:00)
[2024-08-11] MEDS: fentaNYL citrate/PF 100 MCG/2 ML VIAL 50 MCG IVPUSH (15:55)
[2024-08-11] MEDS: gadobutroL 10 ML VIAL IVPUSH (16:28)
--- NOTE | 2024-08-11 16:38 | PM.DS ---
DS: Providers Provider Date of Service: 08/11/24 Date of admission: 07/30/24 15:31 Primary care physician: Aspen Powell MD Consults: 07/30/24 12:54 Consult to Gastroenterology Stat Consulting Provider: Robin Turcios Reason for consultation: UGIB, acute ETOH hepatitis 08/07/24 07:52 Consult to Wound Care Routine Reason for consultation: open area coccyx Attending physician on discharge: Salma Chicas DS: Transfer Hospital Acceptance Reason for Transfer: Higher Level of Care Name of Facility: [facility] Accepting Provider: Dr. Lorenzo DS: Diagnosis Discharge Diagnosis (1) Decompensated cirrhosis: Status: Acute (2) Gastrointestinal bleed: Status: Acute (3) Acute hypoxic respiratory failure: Status: Acute DS: Summary Hospital Course Hospital Course: Mr. Winslow is a 39 Y M w/ hypertension, active alcohol misuse c/b cirrhosis, presented initially to the emergency department on 07/30 w/ abdominal pain and melena, found to be in decompensated cirrhosis and alcohol withdrawal, and in setting of mild hypotension, admitted ICU; on 07/31, patient underwent upper endoscopy w/o appreciable etiology of bleeding, though demonstrated esophageal varices; jhonatan-procedurally, patient developed acute hypoxic respiratory failure, thought to be d/t volume overload in setting of multiple transfusions; ICU course marked by worsening acute hypoxic respiratory failure, at times necessitating treatment w/ high PEEP and paralytics; ICU course also marked by hypotension, likely d/t hemorrhage and vasoplegia, for which patient was on norepinephrine gtt; lastly, patient w/ encephalopathy, likely multi-factorial, d/t hepatic encephalopathy, toxic-metabolic in setting of critical illness, and sedation for ventilator synchrony; on 08/11, patient's case was discussed w/ [facility] gastroenterology and critical care, who accepted patient for transfer for higher level of care; pending studies include MRI brain performed on 08/11 Status at Discharge Overall status at discharge: patient is not back to baseline Time Attestation Total time managing care of this patient today: 60 mintues. Discharge Coordination Time (in mins): 30 Quality: Safe Use of Opioids Does Pt have an Active Cancer Diagnosis on the Problem List?: No Quality: Stroke Does the patient have a stroke diagnosis?: No Physical Exam Vital Signs: Vital Signs: Last Vital Signs Temp 99.1 F 08/11/24 14:00 Pulse 86 08/11/24 15:00 Resp 18 08/11/24 15:00 BP 145/75 H 08/11/24 15:00 Pulse Ox 97 08/11/24 15:04 O2 Del Method Mechanical Ventil ation 08/11/24 15:00 O2 Flow Rate 4 08/08/24 17:00 FiO2 30 08/11/24 15:04 BMI result Body Mass Index 25.3 Const: Other: intubated, minimally sedated w/ dexmedetomidine gtt; appreciable spontaneous eye opening, though no appreciable tracking; spontaneous movement bilateral toes; no appreciable purposeful movements; markedly jaundiced General: no acute distress HEENT: Head: Yes normocephalic and Yes atraumatic Eyes: Other: appreciable scleral icterus Neck: Neck: Yes normal visual inspection, Yes full ROM, Yes no meningeal signs and Yes trachea midline Chest: Chest palpation & inspection: normal inspection of the chest Resp: Other: some appreciable rhonchi; no appreciable rales, wheezing Cardio: Rate: regular rate Rhythm: regular rhythm GI: Other: appreciable abdominal distention w/ skin changes consistent w/ advanced liver disease; compressible; no appreciable guarding, rebound : Other: some appreciable scrotal edema Skin: Other: jaundiced, as described above Neuro: Other: as described above General: tone normal and no meningeal signs Extrem: Other: 1+ pitting edema throughout General: Yes normal to inspection, Yes full ROM and Yes capillary refill normal Psych: Other: unable to assess DS: Data Data Completed and Pending Labs on day of discharge: Laboratory Results - last 24 hr 08/06/24 08/09/24 08/10/24 13:54 05:05 18:25 WBC RBC Hgb Hct MCV MCH MCHC RDW Plt Count MPV Immature Gran % (Auto) Neut % (Auto) Lymph % (Auto) [place] % (Auto) Eos % (Auto) Baso % (Auto) Lymph # (Auto) [place] # (Auto) Eos # (Auto) Baso # (Auto) Abs Immat Gran (auto) Absolute Neuts (auto) Absolute Nucleated RBC Nucleated RBC % (auto) Smear Tech's Comments PT INR VBG pH VBG pCO2 VBG pO2 VBG HCO3 VBG O2 Saturation VBG Base Excess Sodium 155 H Potassium 3.0 L Chloride 115 H Carbon Dioxide 26 Anion Gap 17 BUN 73 H Creatinine 2.06 H Estim Creat Clear Calc 51.7 Estimated GFR 36 Random Glucose 160 H Calcium 8.6 Phosphorus Magnesium Total Bilirubin AST ALT Alkaline Phosphatase Ammonia Total Protein Albumin TSH Free T4 Beta-(1,3)-D-Glucan TNP Blood Type A Positive Antibody Screen NEGATIVE Crossmatch See Detail 08/10/24 08/11/24 08/11/24 21:01 04:40 04:59 WBC 22.0 H RBC 2.58 L Hgb 6.6 L* 7.8 L Hct 19.6 L* 22.8 L MCV 88.4 MCH 30.2 MCHC 34.2 RDW 17.0 H Plt Count 126 L D MPV 11.5 Immature Gran % (Auto) 2.2 H Neut % (Auto) 69.8 Lymph % (Auto) 12.4 L [place] % (Auto) 9.3 Eos % (Auto) 4.8 H Baso % (Auto) 1.5 Lymph # (Auto) 2.7 [place] # (Auto) 2.0 H Eos # (Auto) 1.1 H Baso # (Auto) 0.3 H Abs Immat Gran (auto) 0.48 H Absolute Neuts (auto) 15.4 H Absolute Nucleated RBC 0.110 H Nucleated RBC % (auto) 0.5 H Smear Tech's Comments VERIFIED PT INR VBG pH 7.56 H VBG pCO2 28 VBG pO2 48 VBG HCO3 25 VBG O2 Saturation 81.0 VBG Base Excess 3.7 Sodium 156 H 155 H Potassium 3.4 3.2 L Chloride 117 H 118 H Carbon Dioxide 25 24 Anion Gap 17 16 BUN 70 H 68 H Creatinine 2.10 H 1.84 H Estim Creat Clear Calc 50.7 57.9 Estimated GFR 36 41 Random Glucose 148 H 147 H Calcium 9.2 D 8.8 Phosphorus 2.2 L 2.9 Magnesium 1.9 1.8 Total Bilirubin 10.3 H 10.3 H AST 107 H 102 H ALT 32 28 Alkaline Phosphatase 163 H 164 H Ammonia Total Protein 6.4 L 6.3 L Albumin 3.3 L 3.2 L TSH Free T4 Beta-(1,3)-D-Glucan Blood Type Antibody Screen Crossmatch 08/11/24 08/11/24 08/11/24 08:42 09:00 13:20 WBC RBC Hgb Hct MCV MCH MCHC RDW Plt Count MPV Immature Gran % (Auto) Neut % (Auto) Lymph % (Auto) [place] % (Auto) Eos % (Auto) Baso % (Auto) Lymph # (Auto) [place] # (Auto) Eos # (Auto) Baso # (Auto) Abs Immat Gran (auto) Absolute Neuts (auto) Absolute Nucleated RBC Nucleated RBC % (auto) Smear Tech's Comments PT 26.7 H INR 2.3 H VBG pH VBG pCO2 VBG pO2 VBG HCO3 VBG O2 Saturation VBG Base Excess Sodium 155 H Potassium 2.8 L* Chloride 118 H Carbon Dioxide 25 Anion Gap 15 BUN 66 H Creatinine 2.15 H Estim Creat Clear Calc 49.6 Estimated GFR 35 Random Glucose 145 H Calcium 8.8 Phosphorus 2.8 Magnesium 1.8 Total Bilirubin AST ALT Alkaline Phosphatase Ammonia 52 Total Protein Albumin TSH 5.30 H Free T4 0.47 L Beta-(1,3)-D-Glucan Blood Type Antibody Screen Crossmatch Preliminary micro results at discharge 08/08/24 10:25 Routine Culture - Preliminary Bronch Lll Culture in progress. 08/06/24 11:03 Fungal Identification - Preliminary Bronch Tube 1 Yeast Discharge Plan Discharge Anticipated Discharge Date/Time: 08/11/24 17:04 Patient Disposition: Xfer Acute Care Hospital Discharge Diagnosis: Decompensated Cirrhosis Referrals: Aspen Powell MD [Primary Care Provider] - 1 Week Physician,Fernando J [Physician] - 1 Week Discharge Medications: Continued cyanocobalamin (vitamin B-12) [Vitamin B-12] 1,000 mcg tablet 1,000 mcg PO DAILY acetaminophen 650 mg tablet extended release 650 mg PO Q6H PRN (Reason: Pain) amlodipine 10 mg tablet 10 mg PO DAILY folic acid 1 mg tablet 1 mg PO DAILY omeprazole 20 mg tablet,delayed release (DR/EC) 20 mg PO DAILY cholecalciferol (vitamin D3) 125 mcg (5,000 unit) tablet 125 mcg PO DAILY multivitamin with folic acid [Daily-Meliton (with folic acid)] 400 mcg tablet 1 tab PO DAILY Discharge Orders: Discharge Order (Routine); Ordered 08/11/24 Ordered By: Salma Chicas Activity on Discharge: As tolerated Stand Alone Forms: Patient Portal Discharge page Print Language: Kyr[place]z Care Plan Goals: Transfer to [facility] for further management of decompensated cirrhosis. Health Concerns: Decompensated cirrhosis. Plan of Treatment: Transfer to [facility] for further management of decompensated cirrhosis. Assessment: Transfer to [facility] for further management of decompensated cirrhosis.
[2024-08-11] MEDS: dexmedeTOMIDidine HCL/NS 400 MCG/100 ML INFUS..BTL 11.7 MCG IVCONT (16:51)
== END 2024-08-11 22:20 | disposition short-term general hospital (02) | DRG 280 ==
LOC: HO.ED 12:27 → HO.EDOVER 15:36 → HO.ICU 16:08
PROVIDERS: Internal Medicine Critical Care Medicine; Internal Medicine Gastroenterology; Physician Assistant; Physician Assistant Medical; Physician Assistant Surgical; Registered Nurse Community Health; Admitting Provider Internal Medicine Pulmonary Disease; Emergency Provider Student in an Organized Health Care Education/Training Program; PCP Internal Medicine; Visit Provider Internal Medicine Critical Care Medicine
PROC: 0DJ08ZZ Inspection of Upper Intestinal Tract, Via Natural or Artificial Opening Endoscopic (ICD-10-PCS; CPT 43235; principal; 2024-07-31 11:00)
DX: K70.31 Alcoholic cirrhosis of liver with ascites (principal); K70.11 Alcoholic hepatitis with ascites; R57.8 Other shock; K76.7 Hepatorenal syndrome; N17.0 Acute kidney failure with tubular necrosis; J69.0 Pneumonitis due to inhalation of food and vomit; G92.8 Other toxic encephalopathy; J96.01 Acute respiratory failure with hypoxia; J95.84 Transfusion-related acute lung injury (TRALI); K22.11 Ulcer of esophagus with bleeding; D62 Acute posthemorrhagic anemia; E72.20 Disorder of urea cycle metabolism, unspecified; D68.4 Acquired coagulation factor deficiency; I85.11 Secondary esophageal varices with bleeding; K76.82 Hepatic encephalopathy; K76.6 Portal hypertension; K29.71 Gastritis, unspecified, with bleeding; K31.89 Other diseases of stomach and duodenum; J98.09 Other diseases of bronchus, not elsewhere classified; E87.6 Hypokalemia; J98.11 Atelectasis; I95.2 Hypotension due to drugs; T42.75XA Adverse effect of unspecified antiepileptic and sedative-hypnotic drugs, initial encounter; K72.00 Acute and subacute hepatic failure without coma; Y90.1 Blood alcohol level of 20-39 mg/100 ml; F10.139 Alcohol abuse with withdrawal, unspecified; I10 Essential (primary) hypertension; Z79.899 Other long term (current) drug therapy
CPT/HCPCS: 0241U; 36415; 36600; 49083; 70553; 71045; 71260; 74177; 80048; 80053; 80076; 80307; 82040; 82042; 82140; 82150; 82272; 82570; 82803; 82945; 83540; 83605; 83615; 83690; 83735; 84100; 84157; 84439; 84443; 85007; 85014; 85018; 85025; 85027; 85045; 85610; 85730; 86704; 86706; 86709; 86803; 86850; 86900; 86901; 86923; 87040; 87070; 87071; 87073; 87077; 87102; 87106; 87147; 87186; 87205; 87340; 87449; 87640; 87641; 89051; 93005; 94002; 94003; 94640; 94799; 99285; A9585; C1758; J0171; J0456; J0651; J0692; J0696; J1205; J1939; J1940; J2003; J2060; J2250; J2354; J2470; J2543; J2560; J2704; J3010; J3411; J3430; J3480; P9016; P9017; P9047; P9073; Q9967

== ENCOUNTER 2024-07-30 15:31 | Outpatient (BNV) | payer OTHER, SELFPAY | END 2024-08-11 08:16 | PROVIDERS: Admitting Provider Internal Medicine Pulmonary Disease; Emergency Provider Student in an Organized Health Care Education/Training Program; PCP Internal Medicine; Visit Provider Internal Medicine | DX: K92.2 Gastrointestinal hemorrhage, unspecified (principal) | CPT/HCPCS: 93010 ==

== ENCOUNTER 2024-07-30 15:31 | Outpatient (BNV) | payer OTHER, SELFPAY | END 2024-07-31 09:45 | PROVIDERS: Admitting Provider Internal Medicine Pulmonary Disease; Emergency Provider Student in an Organized Health Care Education/Training Program; Visit Provider Radiology Diagnostic Radiology | DX: R18.8 Other ascites (principal) | CPT/HCPCS: 49083 ==

== ENCOUNTER → 2024-07-30 15:31 | Outpatient (BNV) | payer OTHER, SELFPAY | PROVIDERS: Admitting Provider Internal Medicine Pulmonary Disease; Emergency Provider Student in an Organized Health Care Education/Training Program; Visit Provider Internal Medicine Pulmonary Disease | DX: J81.1 Chronic pulmonary edema (principal); K76.7 Hepatorenal syndrome; K74.60 Unspecified cirrhosis of liver; J96.01 Acute respiratory failure with hypoxia; N17.9 Acute kidney failure, unspecified; F10.20 Alcohol dependence, uncomplicated; K72.90 Hepatic failure, unspecified without coma | CPT/HCPCS: 99291 ==

== ENCOUNTER → 2024-07-30 15:31 | Outpatient (BNV) | payer OTHER, SELFPAY | PROVIDERS: Admitting Provider Internal Medicine Pulmonary Disease; Emergency Provider Student in an Organized Health Care Education/Training Program; Visit Provider Registered Nurse Community Health | DX: N17.9 Acute kidney failure, unspecified (principal); K74.60 Unspecified cirrhosis of liver; K76.7 Hepatorenal syndrome; J81.1 Chronic pulmonary edema | CPT/HCPCS: 31624; 32555; 36556; 99239; 99291; 99292; 99499 ==